=== PATIENT | male | born 1930 | race Caucasian/White ===

== ENCOUNTER 2017-02-06 19:25 | Emergency (ER) | payer MEDICARE, BC ==
[2017-02-06] MEDS ORDERED: Ondansetron 4 MG/2 ML SDV IVPUSH ONE (19:41)
[2017-02-06] MEDS ORDERED: HYDROmorphone 1 MG/ML Syringe IVPUSH ONE (19:41)
--- NOTE | 2017-02-06 19:51 | EDM.PDOC ---
ED HPI GENERAL MEDICAL PROBLEM - General Time Seen by Provider: 02/06/17 19:34 Source of Information: Reports: Patient History Limitations: Reports: No Limitations - History of Present Illness INITIAL COMMENTS - FREE TEXT/NARRATIVE: Patient presents with intense, crampy mid-abdominal pain that started about 5 hours ago and has steadily worsened. This morning he felt completely fine. He says he had a very "greasy" dinner at noon. At 1300 he felt gas/bloating so took some Gas-X and then three teaspoons of Milk of Mag. It just worsened. He denies any gallbladder problems. Last BM was this morning, no diarrhea or constipation. Has a BM usually daily. - Related Data Allergies Allergy/AdvReac Type Severity Reaction Status Date / Time Penicillins Allergy Rash Verified 02/06/17 20:08 Home Meds: Home Meds Non-Formulary Medication [NF Drug] 02/06/17 [History] carBAMazepine [Carbamazepine] 200 mg PO BID 02/06/17 [History] Social & Family History - Tobacco Use Years of Tobacco use: 20 Month Tobacco Last Used: 1969 - Alcohol Use Days Per Week of Alcohol Use: 7 (usually one drink daily) - Living Situation & Occupation Living situation: Reports: Occupation: Retired ED ROS GENERAL - Review of Systems Review Of Systems: See Below Constitutional: Reports: Chills (feels cold right now and felt hot earlier). Denies: Fever, Diaphoresis HEENT: Reports: No Symptoms Respiratory: Denies: Shortness of Breath, Cough Cardiovascular: Denies: Chest Pain, Edema, Lightheadedness, Syncope GI/Abdominal: Reports: Abdominal Pain, Nausea. 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 Today the fingers seem a little blue but may be due to feeling cold.) Neurological: Denies: Confusion, Dizziness, Headache, Seizure, Syncope, Trouble Speaking Psychiatric: Reports: Anxiety. Denies: Agitation, Confusion ED EXAM, GI/ABD - Physical Exam Exam: See Below Exam Limited By: No Limitations General Appearance: Alert, WD/WN, Moderate Distress Eyes: Bilateral: Normal Appearance, EOMI Ears: Normal External Exam, Hearing Loss (chronic) Nose: Normal Inspection, No Blood Throat/Mouth: Normal Inspection, Normal Lips, Normal Voice, No Airway Compromise Head: Atraumatic, Normocephalic Neck: Normal Inspection, Full Range of Motion Respiratory/Chest: No Respiratory Distress, Lungs Clear, Normal Breath Sounds, No Accessory Muscle Use Cardiovascular: Normal Peripheral Pulses, Regular Rate, Rhythm, No Edema, No Gallop, No Murmur GI/Abdominal Exam: Normal Bowel Sounds, No Organomegaly, No Distention, Guarding , Tender (generalized but more in periumbilical region. The outer quadrants less tender) Rectal (Males) Exam: Normal Exam, Normal Rectal Tone, Prostate Normal, Heme - Stool. No: Black Stool, Bloody Stool, Fecal Impaction, Hemorrhoids, Tenderness Back Exam: No: CVA Tenderness (L), CVA Tenderness (R) Extremities: Normal Inspection, Normal Range of Motion, Non-Tender Neurological: Alert, Oriented, Normal Cognition, No Motor/Sensory Deficits Psychiatric: Normal Affect, Normal Mood Skin Exam: Warm, Dry, Intact, Normal Color (except fingers as above), No Rash Course - Orders/Labs/Meds Orders: Active Orders 24 hr Category Date Time Status CBC WITH AUTO DIFF [HEME] Stat Lab 02/06/17 19:42 Ordered COMPREHENSIVE METABOLIC PN,CMP [CHEM] Stat Lab 02/06/17 19:42 Ordered CRP [C-REACTIVE PROTEIN] [CHEM] Stat Lab 02/06/17 19:42 Ordered Meds: Medications Discontinued Medications Generic Name Dose Route Start Last Admin Trade Name Freq PRN Reason Stop Dose Admin Hydromorphone HCl 1 mg 02/06/17 19:41 Dilaudid IVPUSH 02/06/17 19:42 ONETIME ONE Ondansetron HCl 4 mg 02/06/17 19:41 Zofran IVPUSH 02/06/17 19:42 ONETIME ONE - Re-Assessments/Exams Free Text/Narrative Re-Assessment/Exam: 02/06/17 21:48 Dilaudid is controlling the pain nicely. WBC is 11.9 with 90% neutrophils. Liver enzymes are elevated; lipase is normal. 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 Discussed case with Dr. Dietrich (hospitalist) at [facility] who accepted for transfer and surgical consult. We placed an NG tube and this released a large amount of air/gas. Pt's blood pressure has dropped and temp has increased so will give fluids and draw blood cultures and lactic acid. Pt has otherwise been stable and will be transferring to [place] shortly via ambulance. 02/06/17 22:20 Discussed change in status with Dr. Dietrich who advised no antibiotic en route but likes the fluid boluses. She wants patient to go to ER with the hypotension. Departure - Departure Time of Disposition: 21:45 Disposition: DC/Tfer to Acute Hospital 02 Condition: Good Clinical Impression: Small bowel obstruction, Elevated liver enzymes, Cholelithiasis, Neutrophilic leukocytosis, Organoaxial gastric volvulus - Discharge Information - My Orders Last 24 Hours: My Active Orders 02/06/17 19:42 CBC WITH AUTO DIFF [HEME] Stat COMPREHENSIVE METABOLIC PN,CMP [CHEM] Stat CRP [C-REACTIVE PROTEIN] [CHEM] Stat - Assessment/Plan Last 24 Hours: My Active Orders 02/06/17 19:42 CBC WITH AUTO DIFF [HEME] Stat COMPREHENSIVE METABOLIC PN,CMP [CHEM] Stat CRP [C-REACTIVE PROTEIN] [CHEM] Stat
[2017-02-06 20:17] LABS: CHLORIDE,CL 98 mmol/L (98-115); SODIUM,NA 137 mmol/L (136-145)
[2017-02-06] MEDS ORDERED: Iopamidol 612 MG/ML 75 ML Bottle IV ONE (20:50)
[2017-02-06] MEDS ORDERED: Sodium Chloride 0.9% 50 ML SDV FLUSH SCH (21:00)
[2017-02-06] MEDS ORDERED: Sodium Chloride 0.9% 1,000 ML IV ONE (21:49)
[2017-02-06] MEDS ORDERED: Sodium Chloride 0.9% 1,000 ML ONE (21:50)
[2017-02-07 01:01] VITALS: BP 83/41
== END 2017-02-06 22:30 ==
LOC: KA.ED 19:25
DX: K56.60 Unspecified intestinal obstruction (principal); K80.20 Calculus of gallbladder without cholecystitis without obstruction; R74.8 Abnormal levels of other serum enzymes; D72.828 Other elevated white blood cell count; K31.89 Other diseases of stomach and duodenum; Z88.0 Allergy status to penicillin
CPT/HCPCS: 36415; 74177; 80053; 83605; 83690; 85025; 86140; 87040; 96361; 96374; 96375; 99285; J1170; J2405; J7030; Q9967; 87077; 87186

== ENCOUNTER 2017-03-08 11:45 | Inpatient (IN) | payer MEDICARE, BC ==
[2017-03-08] MEDS ORDERED: Acetaminophen 325 MG Tab PO PRN ×2 (13:34→13:52)
[2017-03-08] MEDS ORDERED: traZODone 50 MG Tab PO PRN (13:52)
[2017-03-08] MEDS ORDERED: Aluminum Hydroxide/Magnesium Hydroxide/Simethicone Susp 30 ML Cup PO PRN (13:52)
--- NOTE | 2017-03-08 16:17 | PCM.HP ---
H&P History of Present Illness - General Date of Service: 03/08/17 Admit Problem/Dx: Admission Diagnosis/Problem Admission Diagnosis/Problem Weakness Source of Information: Patient, Other (information provided per [facility]) History Limitations: Reports: Other (weakness) - History of Present Illness Initial Comments - Free Text/Narative: Patient admitted to swing bed from [facility] for rehabilitation. Initial hospitalization date 02-06-17. History of hospitalization is severe sepsis secondary to cholangitis from underlying cholecystitis resulting in e. coli beteremia. Complications included acute hypoxic respiratory failure due to the sepsis. Patient underwent an ERCP on 02-08-17 with removal of CBD stone, sphincterotomy and biliary stent placement. Repeat ERCP on 02-12-17 without obstruction. Hospital coarse complications included Acute kidney injury with a creatinine peak of 1.68. Kidney function gradually improving. He developed transient atrial fibrillation due to the sepsis. This was treated with amiodarone infusion. On hospital discharge patient was in sinus rhythm. He also developed [id number] diastolic CHF which was treated by diuretics. Pulmonary issues resolved. Today patient states he feels good other then noting weakness, decreased strength and endurance. Onset of Symptoms: Reports: Other (due to illness) Symptom Onset Date: 02/06/18 - Related Data Allergies/Adverse Reactions: Allergies Allergy/AdvReac Type Severity Reaction Status Date / Time doxycycline Allergy Cannot Verified 03/08/17 12:16 Remember erythromycin base Allergy Cannot Verified 03/08/17 12:16 Remember Penicillins Allergy Rash Verified 03/08/17 12:16 sulfamethoxazole Allergy Cannot Verified 03/08/17 12:16 [From Bactrim] Remember trimethoprim [From Bactrim] Allergy Cannot Verified 03/08/17 12:16 Remember Home Medications: Home Meds Non-Formulary Medication [NF Drug] 02/06/17 [History] carBAMazepine [Carbamazepine] 200 mg PO BID 02/06/17 [History] Acetaminophen [Pain Reliever] 650 mg PO Q4HR PRN 03/08/17 [History] Alum Hydrox/Mag Hydrox/Simeth [Mag-Al Plus] 30 ml PO QID PRN 03/08/17 [History] Aspirin 81 mg PO DAILY 03/08/17 [History] Bumetanide 1 mg PO DAILY 03/08/17 [History] Cholecalciferol (Vitamin D3) [Vitamin D3] 1,000 units PO DAILY 03/08/17 [History ] Colchicine 0.6 mg PO WEEKLY 03/08/17 [History] Docusate Sodium 100 mg PO BID 03/08/17 [History] Ipratropium/Albuterol Sulfate [Iprat-Albut 0.5-3(2.5) MG/3 ML] 0.5 - 2 mg INH QID 03/08/17 [History] Melatonin 6 mg PO DAILY 03/08/17 [History] Metoprolol Tartrate 25 mg PO BID 03/08/17 [History] Multivit-Min/Iron Fum/Folic AC [Vwyia-Ahyvorh-Wutaskhe Tablet] 1 each PO DAILY 03/08/17 [History] Potassium Chloride 20 meq PO DAILY 03/08/17 [History] traZODone HCl [Trazodone HCl] 50 mg PO BEDTIME PRN 03/08/17 [History] Past Medical History HEENT History: Reports: Hard of Hearing, Impaired Vision Cardiovascular History: Reports: Afib, High Cholesterol, Hypertension Respiratory History: Reports: None, Other (See Below) Other Respiratory History: Resp failure r/t sepsis 02/07. 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 Neurological History: Reports: Other (See Below) Other Neuro History: trigeminal neuralgia Psychiatric History: Reports: None Endocrine/Metabolic History: Reports: None Hematologic History: Reports: B12 Deficiency Oncologic (Cancer) History: Reports: Basal Cell Carcinoma Other Oncologic History: face, chest, ear skin ca removed Dermatologic History: Reports: None - Infectious Disease History Infectious Disease History: Reports: None - Past Surgical History GI Surgical History: Reports: Hernia, Abdominal Social & Family History - Tobacco Use Smoking Status *Q: Former Smoker Years of Tobacco use: 20 Used Tobacco, but Quit: No Month Tobacco Last Used: 1969 - Caffeine Use Caffeine Use: Reports: Coffee - Alcohol Use Days Per Week of Alcohol Use: 7 (usually one drink daily) Number of Drinks Per Day: 2 Total Drinks Per Week: 14 - Recreational Drug Use Recreational Drug Use: No - Living Situation & Occupation Living situation: Reports: Occupation: Retired H&P Review of Systems - Review of Systems: Review Of Systems: See Below General: Reports: Weakness, Fatigue, Decreased Appetite (states appetite improving as he progressively becomes stronger) HEENT: Reports: Hearing Changes (has hearing aids). Denies: Ear Pain, Headaches , Rhinitis, Sinus Congestion, Sore Throat, Vertigo, Visual Changes Pulmonary: Denies: Shortness of Breath, Wheezing, Cough Cardiovascular: Denies: Chest Pain, Palpitations, Orthopnea, PND, Edema, Lightheadedness Gastrointestinal: Denies: Abdominal Pain, Constipation, Diarrhea, Distension Genitourinary: Denies: Dysuria, Frequency, Urgency Musculoskeletal: Reports: Other (weakness) Skin: Denies: Cyanosis, Pallor Neurological: Denies: Confusion, Dizziness, Headache Exam - Exam Exam: See Below - Vital Signs Vital Signs: Last Vital Signs Temp 97.4 F 03/08/17 15:00 Pulse 76 03/08/17 15:00 Resp 20 03/08/17 15:00 BP 130/77 03/08/17 15:00 Pulse Ox 95 03/08/17 15:00 Weight: 165 lb 1.6 oz - Exam General: Alert, Oriented, Cooperative HEENT: Conjunctiva Clear, EOMI, Mucosa Moist & [place], Posterior Pharynx Clear, Pupils Equal, Pupils Reactive Neck: Supple, Trachea Midline, +2 Carotid Pulse wo Bruit Lungs: Normal Respiratory Effort. No: Crackles, Rales, Rhonchi, Wheezing Cardiovascular: Regular Rate, Regular Rhythm, Normal S1, Normal S2 GI/Abdominal Exam: Normal Bowel Sounds, Soft, Non-Tender, No Organomegaly Extremities: Normal Inspection, Non-Tender, No Pedal Edema, Normal Capillary Refill. No: Pedal Edema *Q Meaningful Use (ADM) - VTE *Q VTE Criteria *Q: - Stroke *Q Stroke Criteria *Q: - AMI *Q AMI Criteria *Q: Problem List Initiated/Reviewed/Updated: Yes Orders Last 24hrs: Active Orders 24 hr Category Date Time Status Patient Status [ADT] Routine ADT 03/08/17 11:30 Ordered Ambulate [RC] ASDIRECTED Care 03/08/17 13:16 Active Height and Weight [RC] PER UNIT ROUTINE Care 03/08/17 13:29 Active May Shower [RC] ASDIRECTED Care 03/08/17 13:16 Active Oxygen Therapy [RC] PRN Care 03/08/17 13:11 Active Up ad Lorri [RC] ASDIRECTED Care 03/08/17 13:16 Active Up to Chair [RC] ASDIRECTED Care 03/08/17 13:16 Active VTE/DVT Education [RC] PER UNIT ROUTINE Care 03/08/17 13:11 Active Vital Signs [RC] 0700,1500 Care 03/08/17 13:11 Active Consult to [place] [CONS] Routine Cons 03/08/17 13:34 Active PT Evaluation and Treatment [CONS] Routine Cons 03/08/17 13:34 Active Regular Diet [DIET] Diet 03/08/17 Dinner Active Acetaminophen [Tylenol] Med 03/08/17 13:34 Active 650 mg PO Q4H PRN Albuterol/Ipratropium [DuoNeb 3.0-0.5 MG/3 ML] Med 03/08/17 16:00 Active 3 ml INH QIDRT Alum Hydrox/Mag Hydrox/Simeth [Mag-Al Plus] Med 03/08/17 13:52 Active 30 ml PO QID PRN Aspirin Med 03/09/17 09:00 Active 81 mg PO DAILY Bumetanide [Bumex] Med 03/09/17 09:00 Active 1 mg PO DAILY Cholecalciferol (Vitamin D3) [Vitamin D3] Med 03/09/17 09:00 Active 2,000 units PO DAILY Docusate Sodium [Colace] Med 03/08/17 21:00 Active 100 mg PO BID FA/Lycopene/Lut/MV,Ca,Iron,Min [Centrum] Med 03/09/17 09:00 Active 1 tab PO DAILY Melatonin Med 03/08/17 21:00 Active 6 mg PO BEDTIME Metoprolol Tartrate [Lopressor] Med 03/08/17 21:00 Active 25 mg PO BID Potassium Chloride [Klor-Con M20] Med 03/09/17 09:00 Active 20 meq PO DAILY carBAMazepine [TEGretol Tab] Med 03/08/17 21:00 Active 200 mg PO BID traZODone Med 03/08/17 13:52 Active 50 mg PO BEDTIME PRN Resuscitation Status Routine Resus Stat 03/08/17 13:10 Ordered Medication Orders Acetaminophen (Tylenol) 650 mg PO Q4H PRN PRN Reason: Pain (Mild 1-3)/fever Al Hydroxide/Mg Hydroxide (Mag-Al Plus) 30 ml PO QID PRN PRN Reason: Indigestion Albuterol/Ipratropium (Duoneb 3.0-0.5 Mg/3 Ml) 3 ml INH QIDRT HALLIE Aspirin (Aspirin) 81 mg PO DAILY HALLIE Bumetanide (Bumex) 1 mg PO DAILY HALLIE Carbamazepine (Tegretol Tab) 200 mg PO BID HALLIE Cholecalciferol (Vitamin D3) 2,000 units PO DAILY HALLIE Docusate Sodium (Colace) 100 mg PO BID HALLIE Melatonin (Melatonin) 6 mg PO BEDTIME HALLIE Metoprolol Tartrate (Lopressor) 25 mg PO BID HALLIE Multivitamins/Minerals (Centrum) 1 tab PO DAILY COUNT INCLUDES THE [facility] Potassium Chloride (Klor-Con M20) 20 meq PO DAILY HALLIE Trazodone HCl (Trazodone) 50 mg PO BEDTIME PRN PRN Reason: Insomnia Assessment/Plan Comment:: Impression and plan Deconditioning / weakness Admitted for PT ,strenthening and endurance. History of other medical conditions. 1.ISevere sepsis secondary to cholecystitis and cholangitis resulting in Escherichia coli bacteremia. S/P. 2. Acute hypoxic respiratory failure due to sepsis. 3. Acute kidney injury/acute renal failure due to ATN from sepsis. 4. NSTEMI type II. 5. Transient atrial fibrillation due to the stress of the illness. 6. Acute hypernatremia secondary to water deficit. Sodium is 153. 7. Acute hyperkalemia. 8. Acute thrombocytopenia secondary to sepsis related bone marrow depression, resolved. 9. Anemia of critical disease. Hemoglobin stable between 10 and 11. 10 massive hiatal hernia with nearly entire stomach in thorax 11. 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
[2017-03-08] MEDS: Albuterol/Ipratropium 3.0-0.5 MG/3 ML Neb Soln INH SCH ×2 (17:02→21:20)
[2017-03-08] MEDS: Melatonin 3 MG Tab PO SCH (21:17)
[2017-03-08] MEDS: Metoprolol Tartrate 25 MG Tab PO SCH (21:17)
[2017-03-08] MEDS: carBAMazepine 200 MG Tab PO SCH (21:17)
[2017-03-08] MEDS: Docusate Sodium 100 MG Cap PO SCH (21:17)
[2017-03-09] MEDS: Albuterol/Ipratropium 3.0-0.5 MG/3 ML Neb Soln INH SCH ×4 (06:20→21:28)
[2017-03-09] MEDS: Aspirin 81 MG Tab.Chew PO SCH (08:20)
[2017-03-09] MEDS: Multivitamins with Minerals/Iron/Folic Acid/Lycopene Tab PO SCH (08:20)
[2017-03-09] MEDS: Docusate Sodium 100 MG Cap PO SCH ×2 (08:21→21:24)
[2017-03-09] MEDS: Cholecalciferol (Vitamin D3) 1,000 Unit Tab PO SCH (08:21)
[2017-03-09] MEDS: Bumetanide 1 MG Tab PO SCH (08:21)
[2017-03-09] MEDS: Potassium Chloride 20 MEQ Tab.ER PO SCH (08:22)
[2017-03-09] MEDS: carBAMazepine 200 MG Tab PO SCH ×2 (08:22→21:24)
[2017-03-09] MEDS: Metoprolol Tartrate 25 MG Tab PO SCH ×2 (08:31→21:24)
[2017-03-09] MEDS: ANTIFUNGAL TOP SCH ×2 (11:19→21:28)
[2017-03-09] MEDS: Melatonin 3 MG Tab PO SCH (21:27)
[2017-03-10] MEDS: Albuterol/Ipratropium 3.0-0.5 MG/3 ML Neb Soln INH SCH ×4 (05:40→22:17)
[2017-03-10] MEDS: ANTIFUNGAL TOP SCH ×2 (08:10→20:32)
[2017-03-10] MEDS: Bumetanide 1 MG Tab PO SCH (08:10)
[2017-03-10] MEDS: carBAMazepine 200 MG Tab PO SCH ×2 (08:11→20:31)
[2017-03-10] MEDS: Aspirin 81 MG Tab.Chew PO SCH (08:11)
[2017-03-10] MEDS: Cholecalciferol (Vitamin D3) 1,000 Unit Tab PO SCH (08:11)
[2017-03-10] MEDS: Docusate Sodium 100 MG Cap PO SCH ×2 (08:11→20:31)
[2017-03-10] MEDS: Multivitamins with Minerals/Iron/Folic Acid/Lycopene Tab PO SCH (08:11)
[2017-03-10] MEDS: Potassium Chloride 20 MEQ Tab.ER PO SCH (08:12)
[2017-03-10] MEDS: Metoprolol Tartrate 25 MG Tab PO SCH ×2 (08:14→20:32)
[2017-03-10] MEDS: Melatonin 3 MG Tab PO SCH (20:31)
[2017-03-11] MEDS: Albuterol/Ipratropium 3.0-0.5 MG/3 ML Neb Soln INH SCH ×4 (06:16→21:49)
[2017-03-11] MEDS: Aspirin 81 MG Tab.Chew PO SCH (08:59)
[2017-03-11] MEDS: Cholecalciferol (Vitamin D3) 1,000 Unit Tab PO SCH (09:00)
[2017-03-11] MEDS: Bumetanide 1 MG Tab PO SCH (09:00)
[2017-03-11] MEDS: ANTIFUNGAL TOP SCH ×2 (09:00→20:35)
[2017-03-11] MEDS: Metoprolol Tartrate 25 MG Tab PO SCH ×2 (09:00→20:32)
[2017-03-11] MEDS: Multivitamins with Minerals/Iron/Folic Acid/Lycopene Tab PO SCH (09:00)
[2017-03-11] MEDS: Docusate Sodium 100 MG Cap PO SCH ×2 (09:00→20:32)
[2017-03-11] MEDS: carBAMazepine 200 MG Tab PO SCH ×2 (09:00→20:33)
[2017-03-11] MEDS: Potassium Chloride 20 MEQ Tab.ER PO SCH (09:00)
--- NOTE | 2017-03-11 16:36 | PN ---
03/10/2017PATIENT NAME: CYNTHIA OTT HISTORY OF PRESENT ILLNESS: Concerns of yeast-like rash in his chrissy area. REVIEW OF SYSTEMS: RESPIRATORY: No complains of coughing or congestion. CARDIOVASCULAR: No chest pain or palpitations. SKIN: Yeast-like rash area in his chrissy area. PHYSICAL EXAMINATION: RESPIRATORY: Lungs are clear. CARDIOVASCULAR: Heart rate and rhythm are regular. S1, S2. SKIN: Redness improving in the chrissy area with antifungal cream. ASSESSMENT: Yeast-like rash of the chrissy area. His plan is to continue using his antifungal cream which was initiated yesterday. At that time, his rash site was very deep red and excoriated. Noted significant improvement today. The patient feels that his symptoms are improving. He will be followed up routinely at the [facility]. /[id number]/MODL
[2017-03-11] MEDS: Melatonin 3 MG Tab PO SCH (20:32)
[2017-03-12] MEDS: Albuterol/Ipratropium 3.0-0.5 MG/3 ML Neb Soln INH SCH ×4 (05:46→21:19)
[2017-03-12] MEDS: Bumetanide 1 MG Tab PO SCH (08:53)
[2017-03-12] MEDS: Multivitamins with Minerals/Iron/Folic Acid/Lycopene Tab PO SCH (08:53)
[2017-03-12] MEDS: Docusate Sodium 100 MG Cap PO SCH ×2 (08:53→21:16)
[2017-03-12] MEDS: Aspirin 81 MG Tab.Chew PO SCH (08:53)
[2017-03-12] MEDS: Potassium Chloride 20 MEQ Tab.ER PO SCH (08:53)
[2017-03-12] MEDS: Metoprolol Tartrate 25 MG Tab PO SCH ×2 (08:53→21:16)
[2017-03-12] MEDS: carBAMazepine 200 MG Tab PO SCH ×2 (08:54→21:17)
[2017-03-12] MEDS: Cholecalciferol (Vitamin D3) 1,000 Unit Tab PO SCH (08:54)
[2017-03-12] MEDS: ANTIFUNGAL TOP SCH ×2 (09:35→21:18)
[2017-03-12] MEDS: Melatonin 3 MG Tab PO SCH (21:17)
[2017-03-13] MEDS: Albuterol/Ipratropium 3.0-0.5 MG/3 ML Neb Soln INH SCH ×3 (05:59→15:34)
[2017-03-13] MEDS: Aspirin 81 MG Tab.Chew PO SCH (08:24)
[2017-03-13] MEDS: carBAMazepine 200 MG Tab PO SCH ×2 (08:24→21:01)
[2017-03-13] MEDS: Multivitamins with Minerals/Iron/Folic Acid/Lycopene Tab PO SCH (08:24)
[2017-03-13] MEDS: Bumetanide 1 MG Tab PO SCH (08:24)
[2017-03-13] MEDS: Docusate Sodium 100 MG Cap PO SCH ×2 (08:24→21:01)
[2017-03-13] MEDS: ANTIFUNGAL TOP SCH ×2 (08:24→21:01)
[2017-03-13] MEDS: Cholecalciferol (Vitamin D3) 1,000 Unit Tab PO SCH (08:24)
[2017-03-13] MEDS: Metoprolol Tartrate 25 MG Tab PO SCH ×2 (08:24→21:01)
[2017-03-13] MEDS: Potassium Chloride 20 MEQ Tab.ER PO SCH (08:24)
[2017-03-13] MEDS ORDERED: Albuterol/Ipratropium 3.0-0.5 MG/3 ML Neb Soln NEB PRN (17:06)
[2017-03-13] MEDS: Melatonin 3 MG Tab PO SCH (21:01)
[2017-03-14] MEDS: ANTIFUNGAL TOP SCH ×2 (08:18→20:37)
[2017-03-14] MEDS: Cholecalciferol (Vitamin D3) 1,000 Unit Tab PO SCH (08:18)
[2017-03-14] MEDS: Docusate Sodium 100 MG Cap PO SCH ×2 (08:19→20:34)
[2017-03-14] MEDS: Metoprolol Tartrate 25 MG Tab PO SCH ×2 (08:19→20:41)
[2017-03-14] MEDS: Multivitamins with Minerals/Iron/Folic Acid/Lycopene Tab PO SCH (08:19)
[2017-03-14] MEDS: carBAMazepine 200 MG Tab PO SCH ×2 (08:19→20:35)
[2017-03-14] MEDS: Potassium Chloride 20 MEQ Tab.ER PO SCH (08:19)
[2017-03-14] MEDS: Aspirin 81 MG Tab.Chew PO SCH (08:19)
[2017-03-14] MEDS: Bumetanide 1 MG Tab PO SCH (08:19)
[2017-03-14] MEDS: Melatonin 3 MG Tab PO SCH (20:34)
[2017-03-15] MEDS: Aspirin 81 MG Tab.Chew PO SCH (08:51)
[2017-03-15] MEDS: Potassium Chloride 20 MEQ Tab.ER PO SCH (08:51)
[2017-03-15] MEDS: Bumetanide 1 MG Tab PO SCH (08:51)
[2017-03-15] MEDS: Docusate Sodium 100 MG Cap PO SCH ×2 (08:51→20:37)
[2017-03-15] MEDS: Multivitamins with Minerals/Iron/Folic Acid/Lycopene Tab PO SCH (08:51)
[2017-03-15] MEDS: Cholecalciferol (Vitamin D3) 1,000 Unit Tab PO SCH (08:52)
[2017-03-15] MEDS: carBAMazepine 200 MG Tab PO SCH ×2 (08:52→20:37)
[2017-03-15] MEDS: Metoprolol Tartrate 25 MG Tab PO SCH ×2 (08:52→20:38)
[2017-03-15] MEDS: ANTIFUNGAL TOP SCH ×2 (08:57→20:38)
[2017-03-15] MEDS: Melatonin 3 MG Tab PO SCH (20:38)
[2017-03-16] MEDS: Cholecalciferol (Vitamin D3) 1,000 Unit Tab PO SCH (11:25)
[2017-03-16] MEDS: Docusate Sodium 100 MG Cap PO SCH ×2 (11:25→21:00)
[2017-03-16] MEDS: Multivitamins with Minerals/Iron/Folic Acid/Lycopene Tab PO SCH (11:26)
[2017-03-16] MEDS: Potassium Chloride 20 MEQ Tab.ER PO SCH (11:26)
[2017-03-16] MEDS: Bumetanide 1 MG Tab PO SCH (11:26)
[2017-03-16] MEDS: Aspirin 81 MG Tab.Chew PO SCH (11:26)
[2017-03-16] MEDS: ANTIFUNGAL TOP SCH ×2 (11:27→21:07)
[2017-03-16] MEDS: carBAMazepine 200 MG Tab PO SCH ×2 (11:28→20:59)
[2017-03-16] MEDS: Metoprolol Tartrate 25 MG Tab PO SCH ×2 (11:29→21:00)
[2017-03-16] MEDS: Melatonin 3 MG Tab PO SCH (21:00)
[2017-03-17] MEDS: Potassium Chloride 20 MEQ Tab.ER PO SCH (09:50)
[2017-03-17] MEDS: Docusate Sodium 100 MG Cap PO SCH ×2 (09:50→20:27)
[2017-03-17] MEDS: Cholecalciferol (Vitamin D3) 1,000 Unit Tab PO SCH (09:50)
[2017-03-17] MEDS: Bumetanide 1 MG Tab PO SCH (09:50)
[2017-03-17] MEDS: Aspirin 81 MG Tab.Chew PO SCH (09:50)
[2017-03-17] MEDS: carBAMazepine 200 MG Tab PO SCH ×2 (09:50→20:27)
[2017-03-17] MEDS: Multivitamins with Minerals/Iron/Folic Acid/Lycopene Tab PO SCH (09:52)
[2017-03-17] MEDS: ANTIFUNGAL TOP SCH ×2 (09:55→20:27)
[2017-03-17] MEDS: Metoprolol Tartrate 25 MG Tab PO SCH ×2 (10:02→20:27)
[2017-03-17] MEDS: Melatonin 3 MG Tab PO SCH (20:27)
[2017-03-18] MEDS: Aspirin 81 MG Tab.Chew PO SCH (08:49)
[2017-03-18] MEDS: Bumetanide 1 MG Tab PO SCH (08:49)
[2017-03-18] MEDS: Multivitamins with Minerals/Iron/Folic Acid/Lycopene Tab PO SCH (08:49)
[2017-03-18] MEDS: Cholecalciferol (Vitamin D3) 1,000 Unit Tab PO SCH (08:49)
[2017-03-18] MEDS: Docusate Sodium 100 MG Cap PO SCH (08:49)
[2017-03-18] MEDS: carBAMazepine 200 MG Tab PO SCH (08:50)
[2017-03-18] MEDS: Potassium Chloride 20 MEQ Tab.ER PO SCH (08:50)
[2017-03-18] MEDS: Metoprolol Tartrate 25 MG Tab PO SCH (08:50)
[2017-03-18] MEDS: ANTIFUNGAL TOP SCH (08:51)
[2017-03-18 08:53] VITALS: BP 106/66
--- NOTE | 2017-03-19 08:11 | DISCH ---
ADMITTING DIAGNOSIS: Swing bed, status post endoscopic retrograde cholangiopancreatography with Escherichia coli bacteremia. FINAL DIAGNOSIS: Generalized deconditioning secondary to extended hospital stay after Escherichia coli bacteremia. BRIEF HISTORY AND ESSENTIAL PHYSICAL FINDINGS: This is an 87-year-old male patient who was admitted from [facility] in [place]. He was admitted here back on 03/08/2017. His initial hospitalization date was 02/06/2017. The patient was hospitalized with severe sepsis secondary to cholangitis from underlying cholecystitis resulted in E coli bacteremia. The patient had multiple complications secondary to bacteremia. He had respiratory failure with acute hypoxic episode. The patient underwent ERCP back on 02/08/2017 with removal of common bile duct stone, sphincterotomy, and biliary stent placement. He underwent a repeat ERCP back on 02/12/2017. Due to bacteremia and sepsis, the patient had acute kidney injury resulting in a peak creatinine level of 1.68. He also had transient atrial fibrillation. He had to be on amiodarone infusion. The patient was in sinus rhythm at the time of discharge from [facility]. The patient also did have exacerbation of his CHF. At the time of discharge, the patient's respiratory status was much improved. His pulmonary issues had resolved. SIGNIFICANT LABS XRAYS AND CONSULTATION FINDINGS: The patient had no lab work obtained while he was here for swing bed status. No scans or x-rays were obtained. COURSE IN HOSPITAL WITH COMPLICATIONS IF ANY: The patient was seen by Physical Therapy and Occupational Therapy. His strength did improve. He walks by himself with a walker. He did have one fall during the hospitalization. The patient states that his legs were like Jell-O when he first started to walk around the home and now he feels improved. CONDITION TREATMENT AND FINAL DISPOSITION ON DISCHARGE AND PROGNOSIS: Condition is stable. Final disposition will be home. IMPRESSION AND PLAN: 1. Status post two endoscopic retrograde cholangiopancreatographies with Escherichia coli bacteremia and biliary stent placement. The patient has been doing well, afebrile, eating and drinking well. 2. History of hypertension along with congestive heart failure. Plan: Continue the patient on aspirin 81 mg daily along with diuretics of Bumex 1 mg daily, also beta-bandar of Lopressor 25 mg twice a day. 3. History of hypokalemia. Plan: Continue with potassium chloride 20 mEq daily. 4. History of insomnia. Plan: Continue with melatonin and trazodone at bedtime as needed for sleep. 5. History of trigeminal neuralgia. Plan: Continue with Tegretol as ordered. 6. Deconditioning due to extended hospitalization. Plan: Send the patient home with Home Health and Physical Therapy and Occupational Therapy. OVERALL PLAN: The patient will be discharged home today with his . He is going to be sent home with Home Health of Nursing, Physical Therapy, and Occupational Therapy. The patient will need nursing for medication management. Physical therapy and occupational therapy will be needed. The patient is still quite weak with his gait. He has been walking with a walker. He will need physical therapy for strengthening of his lower extremities. He does complain of some left calf muscle weakness. His endurance is much less than previously. He says he is not going back to where he was. Also, occupational therapy for home safety assessment and instructions. The patient will also need to develop a home therapy program with Physical Therapy. Physical Therapy and Occupational will work with the patient's gait to make sure his gait is steady and he is safe in his own home. /[id number]/MODL
== END 2017-03-18 14:40 | disposition home or self-care (01) | DRG 948 ==
LOC: KA.MS 11:45
PROVIDERS: ADMIT Family Medicine; ATTEND Family Medicine
DX: R53.1 Weakness (principal); R78.81 Bacteremia; B96.20 Unspecified Escherichia coli [E. coli] as the cause of diseases classified elsewhere; R21 Rash and other nonspecific skin eruption; I10 Essential (primary) hypertension; E87.6 Hypokalemia; G50.0 Trigeminal neuralgia; G47.00 Insomnia, unspecified; I48.91 Unspecified atrial fibrillation; E78.00 Pure hypercholesterolemia, unspecified; Z85.828 Personal history of other malignant neoplasm of skin; Z98.890 Other specified postprocedural states; Z87.891 Personal history of nicotine dependence
CPT/HCPCS: 94640; 94640-76; 97110-GP; 97116-GP; 97162-GP; A9270-GY

== ENCOUNTER 2017-12-03 19:07 | Emergency (ER) | payer MEDICARE, BC ==
[2017-12-03 19:20] VITALS: BP 151/75
[2017-12-03] MEDS ORDERED: Sodium Chloride 0.9% 5 ML Syringe FLUSH PRN (19:21)
--- NOTE | 2017-12-03 19:31 | EDM.PDOC ---
ED HPI GENERAL MEDICAL PROBLEM - General Chief Complaint: Gastrointestinal Problem Stated Complaint: RIGHT LOWER ABD PAIN Time Seen by Provider: 12/03/17 19:22 Source of Information: Reports: Patient History Limitations: Reports: No Limitations - History of Present Illness INITIAL COMMENTS - FREE TEXT/NARRATIVE: 87 YO WM presents to ER with complaints of RUQ abdominal pain x 2 days. Pr with significant PMH for cholecystitis/choleducholithiasis and sepsis from infected gallbladder 1 year ago. Pt reports he had an ERCP and cholecystectomy followed by a 40 day hospitalization. Pt reports pain began 2 days ago as mild discomfort and has been intermittent and persistent. Due to his past medical history he felt he should be evaluated for symptoms. Pt denies any fever/chills , no nausea/vomiting. Pt reports normal bowel movement yesterday without hematchezia. Pt rates his pain as 4/10 and is refusing pain medication at this time. Onset Date: 12/01/17 Duration: Day(s): (2) Location: Reports: Abdomen. Denies: Back Quality: Reports: Ache Severity: Mild Improves with: Reports: None Worsens with: Reports: None Treatments HOSPICE SUPERINTENDENT: Reports: NSAIDS Right Lower Abdomen Pain Score (Numeric/FACES): 4 - Related Data Allergies Allergy/AdvReac Type Severity Reaction Status Date / Time doxycycline Allergy Cannot Verified 12/03/17 19:18 Remember erythromycin base Allergy Cannot Verified 12/03/17 19:18 Remember Penicillins Allergy Rash Verified 12/03/17 19:18 sulfamethoxazole Allergy Cannot Verified 12/03/17 19:18 [From Bactrim] Remember trimethoprim [From Bactrim] Allergy Cannot Verified 12/03/17 19:18 Remember Home Meds: Home Meds Aspirin 81 mg PO DAILY 03/08/17 [History] Cholecalciferol (Vitamin D3) [Vitamin D3] 1,000 units PO DAILY 03/08/17 [History ] Docusate Sodium 100 mg PO BID 03/08/17 [History] Multivit-Min/Iron Fum/Folic AC [Vttdv-Dynhrhe-Bdxfhqbz Tablet] 1 each PO DAILY 03/08/17 [History] Acetaminophen [Tylenol] 650 mg PO Q4H PRN tablet 03/18/17 [Rx] Bumetanide 1 mg PO DAILY #60 tablet 03/18/17 [Rx] Metoprolol Tartrate 25 mg PO BID #120 tablet 03/18/17 [Rx] Patient's Own Medication [Ptom] 0 each TOP BID each 03/18/17 [Rx] Potassium Chloride 20 meq PO DAILY #60 tablet.er 03/18/17 [Rx] carBAMazepine [Carbamazepine] 200 mg PO BID #60 tablet 03/18/17 [Rx] traZODone HCl [Trazodone HCl] 50 mg PO BEDTIME PRN #60 tablet 03/18/17 [Rx] Past Medical History HEENT History: Reports: Hard of Hearing, Impaired Vision Cardiovascular History: Reports: Afib, High Cholesterol, Hypertension Respiratory History: Reports: None, Other (See Below) Other Respiratory History: Resp failure r/t sepsis 02/07. 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 Neurological History: Reports: Other (See Below) Other Neuro History: trigeminal neuralgia Psychiatric History: Reports: None Endocrine/Metabolic History: Reports: None Hematologic History: Reports: B12 Deficiency Oncologic (Cancer) History: Reports: Basal Cell Carcinoma Other Oncologic History: face, chest, ear skin ca removed Dermatologic History: Reports: None - Infectious Disease History Infectious Disease History: Reports: None - Past Surgical History GI Surgical History: Reports: Hernia, Abdominal Social & Family History - Caffeine Use Caffeine Use: Reports: Coffee - Living Situation & Occupation Living situation: Reports: Occupation: Retired ED ROS GENERAL - Review of Systems Review Of Systems: See Below Constitutional: Reports: No Symptoms HEENT: Reports: No Symptoms Respiratory: Reports: No Symptoms Cardiovascular: Reports: No Symptoms Endocrine: Reports: No Symptoms GI/Abdominal: Reports: Abdominal Pain, Decreased Appetite. Denies: Black Stool , Bloody Stool, Constipation, Diarrhea, Distension, Flatus, Hematemesis, Hematochezia, Nausea, Stool Incontinence, Vomiting : Reports: No Symptoms Musculoskeletal: Reports: No Symptoms Skin: Reports: No Symptoms Neurological: Reports: No Symptoms Psychiatric: Reports: No Symptoms Hematologic/Lymphatic: Reports: No Symptoms Immunologic: Reports: No Symptoms ED EXAM, GI/ABD - Physical Exam Exam: See Below Exam Limited By: No Limitations General Appearance: Alert, WD/WN, No Apparent Distress Throat/Mouth: Normal Inspection, Normal Lips, Normal Teeth, Normal Gums, Normal Oropharynx, Normal Voice, No Airway Compromise Head: Atraumatic, Normocephalic Neck: Normal Inspection, Supple, Non-Tender, Full Range of Motion Respiratory/Chest: No Respiratory Distress, Lungs Clear, Normal Breath Sounds, No Accessory Muscle Use, Chest Non-Tender Cardiovascular: Normal Peripheral Pulses, Regular Rate, Rhythm, No Edema, No Gallop, No JVD, No Murmur, No Rub GI/Abdominal Exam: Normal Bowel Sounds, Soft, No Organomegaly, No Distention, No Abnormal Bruit, No Mass, Tender (RUQ). No: Non-Tender, Guarding, Rigid, Rebound Back Exam: Normal Inspection, Full Range of Motion, NT Extremities: Normal Inspection, Normal Range of Motion, Non-Tender, Normal Capillary Refill, No Pedal Edema Neurological: Alert, Oriented, CN II-XII Intact, Normal Cognition, Normal Gait, Normal Reflexes, No Motor/Sensory Deficits Psychiatric: Normal Affect, Normal Mood Skin Exam: Warm, Dry, Intact, Normal Color, No Rash Lymphatic: No Adenopathy Course - Vital Signs Last Recorded V/S: Last Vital Signs Temp 37.4 C 12/03/17 19:12 Pulse 86 12/03/17 19:12 Resp 20 12/03/17 19:12 BP 151/75 H 12/03/17 19:12 Pulse Ox 90 L 12/03/17 19:12 - Orders/Labs/Meds Orders: Active Orders 24 hr Category Date Time Status Peripheral IV Care [RC] . DIRECTED Care 12/03/17 19:22 Active Abdomen Pelvis w Cont [CT] Stat Exams 12/03/17 19:31 Ordered UA W/MICROSCOPIC [URIN] Stat Lab 12/03/17 19:35 Ordered Iopamidol [Isovue-300 (61%)] Med 12/03/17 19:36 Active 75 ml IV . DIRECTED PRN Sodium Chloride 0.9% [Normal Saline] 50 ml Med 12/03/17 19:45 Active IV ASDIRECTED Sodium Chloride 0.9% [Syrex Flush] Med 12/03/17 19:21 Active 5 ml FLUSH Q8HR PRN Peripheral IV Insertion Adult [OM.PC] Routine Oth 12/03/17 19:21 Ordered Medication Orders Sodium Chloride (Normal Saline) 50 mls @ 3 mls/sec IV ASDIRECTED HALLIE Iopamidol (Isovue-300 (61%)) 75 ml IV . DIRECTED PRN PRN Reason: FOR RADIOLOGY EXAM Sodium Chloride (Syrex Flush) 5 ml FLUSH Q8HR PRN PRN Reason: Keep Vein Open Labs: Laboratory Tests 12/03/17 12/03/17 12/03/17 Range/Units 19:35 19:35 19:35 WBC 11.9 H (5.0-10.0) 10^3/uL RBC 4.47 L (4.50-6.00) 10^6/uL Hgb 13.4 D (13.0-17.0) g/dL Hct 40.0 (40.0-52.0) % MCV 89.5 (82.0-92.0) fL MCH 30.1 (27.0-31.0) pg MCHC 33.6 (32.0-36.0) g/dL RDW 13.2 (11.5-14.5) % Plt Count 138 L (150-300) 10^3/uL MPV 7.6 (7.4-10.4) fL Neut % (Auto) 82.8 H (50.0-70.0) % Lymph % (Auto) 7.1 L (20.0-40.0) % [place] % (Auto) 8.8 H (2.0-8.0) % Eos % (Auto) 0.7 L (1.0-3.0) % Baso % (Auto) 0.6 (0.0-1.0) % Neut # (Auto) 9.9 H (2.5-7.0) 10^3/uL Lymph # (Auto) 0.8 L (1.0-4.0) 10^3/uL [place] # (Auto) 1.0 H (0.1-0.8) 10^3/uL Eos # (Auto) 0.1 (0.1-0.3) 10^3/uL Baso # (Auto) 0.1 (0.0-0.1) 10^3/uL Sodium 142 (136-145) mmol/L Potassium 3.8 (3.3-5.3) mmol/L Chloride 106 (98-115) mmol/L Carbon Dioxide 23.6 (21.0-32.0) mmol/L BUN 27 H (6-25) mg/dL Creatinine 1.23 H (0.51-1.17) mg/dL Est Cr Clr Drug Dosing 39.56 mL/min Estimated GFR (MDRD) 56 mL/min Glucose 143 H (70-110) mg/dL Calcium 8.8 (8.7-10.3) mg/dL Total Bilirubin 0.7 (0.2-1.0) mg/dL AST 14 L (15-37) U/L ALT 19 (12-78) U/L Alkaline Phosphatase 99 (46-116) IU/L Total Protein 7.7 (6.4-8.2) g/dL Albumin 3.50 (3.00-4.80) g/dL Lipase 66 L (73-393) U/L Specimen Type Urinvoid Urine Color Yellow (YELLOW) Urine Appearance Slightly cloudy H (CLEAR) Urine pH 5.0 (5.0-9.0) Ur Specific [place] 1.025 (1.005-1.030) Urine Protein 100 H (NEGATIVE) mg/dL Urine Glucose (UA) Negative (NEGATIVE) mg/dL Urine Ketones Negative (NEGATIVE) mg/dL Urine Occult Blood Moderate H (NEGATIVE) Urine Nitrite Negative (NEGATIVE) Urine Bilirubin Small H (NEGATIVE) Urine Urobilinogen 0.2 (0.2-1.0) E.U./dL Ur Leukocyte Esterase Negative (NEGATIVE) Urine RBC 0-5 /HPF Urine WBC 0-5 /HPF Ur Epithelial Cells Occasional /LPF Amorphous Sediment Moderate H (0/HPF) /HPF Urine Bacteria Few (NONE TO FEW) /HPF Meds: Medications Generic Name Dose Route Start Last Admin Trade Name Freq PRN Reason Stop Dose Admin Sodium Chloride 50 mls @ 3 mls/sec 12/03/17 19:45 Normal Saline IV ASDIRECTED HALLIE Iopamidol 75 ml 12/03/17 19:36 Isovue-300 (61%) IV . DIRECTED PRN FOR RADIOLOGY EXAM Sodium Chloride 5 ml 12/03/17 19:21 Syrex Flush FLUSH Q8HR PRN Keep Vein Open Discontinued Medications Generic Name Dose Route Start Last Admin Trade Name Freq PRN Reason Stop Dose Admin Sodium Chloride 1,000 mls @ 999 mls/hr 12/03/17 20:25 12/03/17 20:40 Normal Saline IV 12/03/17 21:25 999 mls/hr .BOLUS ONE Administration - Radiology Interpretation Free Text/Narrative:: CT abd/pelvis- Filing defect in cecum suspicious for malignancy, recommending colonoscopy/biopsy. - Re-Assessments/Exams Free Text/Narrative Re-Assessment/Exam: 12/03/17 22:00 Discussed case with Mikey Vasquez- Pt is to follow up in clinic tomorrow for GI/ colonoscopy arrangements. Pt was given instruction for return for worsening pain , or signs of bowel obstruction. Departure - Departure Time of Disposition: 22:07 Disposition: Home, Self-Care 01 Condition: Fair Clinical Impression: Mass of cecum Abdominal pain Qualifiers: Abdominal location: right lower quadrant Qualified Code(s): R10.31 - Right lower quadrant pain - Discharge Information Instructions: Abdominal Pain, Adult, Colonoscopy, Adult Referrals: Diann Castellon MD [Primary Care Provider] - Forms: ED Department Discharge Additional Instructions: 1. follow up in [facility] tomorrow for GI oncology or GI follow up 2. clear liquid diet 3. return to ER for worsening symptoms- vomiting, severe pain, inability to move bowels, or blood in stool - My Orders Last 24 Hours: My Active Orders 12/03/17 19:21 Sodium Chloride 0.9% [Syrex Flush] 5 ml FLUSH Q8HR PRN Peripheral IV Insertion Adult [OM.PC] Routine 12/03/17 19:22 Peripheral IV Care [RC] . DIRECTED 12/03/17 19:31 Abdomen Pelvis w Cont [CT] Stat 12/03/17 19:35 UA W/MICROSCOPIC [URIN] Stat 12/03/17 19:36 Iopamidol [Isovue-300 (61%)] 75 ml IV . DIRECTED PRN 12/03/17 19:45 Sodium Chloride 0.9% [Normal Saline] 50 ml IV ASDIRECTED - Assessment/Plan Last 24 Hours: My Active Orders 12/03/17 19:21 Sodium Chloride 0.9% [Syrex Flush] 5 ml FLUSH Q8HR PRN Peripheral IV Insertion Adult [OM.PC] Routine 12/03/17 19:22 Peripheral IV Care [RC] . DIRECTED 12/03/17 19:31 Abdomen Pelvis w Cont [CT] Stat 12/03/17 19:35 UA W/MICROSCOPIC [URIN] Stat 12/03/17 19:36 Iopamidol [Isovue-300 (61%)] 75 ml IV . DIRECTED PRN 12/03/17 19:45 Sodium Chloride 0.9% [Normal Saline] 50 ml IV ASDIRECTED Assessment:: 1. mass in RLQ suspicious for malignancy without signs of obstruction 2. abdominal pain Plan: 1. follow up in [facility] tomorrow for GI oncology or GI follow up 2. clear liquid diet 3. return to ER for worsening symptoms- vomiting, severe pain, inability to move bowels, or blood in stool
[2017-12-03] MEDS ORDERED: Iopamidol 612 MG/ML 75 ML Bottle IV PRN (19:36)
[2017-12-03] MEDS ORDERED: Sodium Chloride 0.9% 50 ML IV SCH (19:45)
[2017-12-03] MEDS ORDERED: Sodium Chloride 0.9% 1,000 ML IV ONE (20:25)
== END 2017-12-03 22:20 | disposition home or self-care (01) ==
LOC: KA.ED 19:07
DX: K63.89 Other specified diseases of intestine (principal); R10.31 Right lower quadrant pain; I10 Essential (primary) hypertension; Z88.0 Allergy status to penicillin; Z88.1 Allergy status to other antibiotic agents; Z88.2 Allergy status to sulfonamides; Z88.8 Allergy status to other drugs, medicaments and biological substances; Z79.899 Other long term (current) drug therapy; Z79.82 Long term (current) use of aspirin
CPT/HCPCS: 36415; 74177; 80053; 81001; 83690; 85025; 96360; 99284; J7030

== ENCOUNTER 2019-01-14 16:35 | Inpatient (IN) | payer MEDICARE, BC ==
[2019-01-14] MEDS ORDERED: Sodium Chloride 0.9% 1,000 ML IV ONE (17:00)
[2019-01-14] MEDS ORDERED: Iopamidol 755 Mg/ML 75 ML Bottle IVPUSH ONE (17:43)
[2019-01-14] MEDS ORDERED: Sodium Chloride 0.9% 50 ML IV ONE (17:45)
[2019-01-14] MEDS: Sodium Chloride 0.9% 10 ML Syringe FLUSH PRN (18:36)
[2019-01-14] MEDS ORDERED: fentaNYL 100 MCG/2 ML SDV IVPUSH ONE (19:00)
[2019-01-14] MEDS ORDERED: Sodium Chloride 0.9% 500 ML IV SCH (19:00)
[2019-01-14] MEDS ORDERED: carBAMazepine 200 MG Tab PO ONE (19:09)
[2019-01-14] MEDS ORDERED: Sodium Chloride 0.9% 1,000 ML IV SCH (19:15)
[2019-01-14] MEDS ORDERED: Vancomycin 1 GM SDV IV ONE ×2 (19:30→20:15)
--- NOTE | 2019-01-14 19:36 | CT ---
[id number] CT/CT Abdomen Pelvis W IV EXAM: ABDOMEN AND PELVIS CT WITH CONTRAST INDICATION: Abdominal pain, bilirubin in urine and jaundice. COMPARISON: December 03, 2017. DISCUSSION: There is a large partially characterized hiatus hernia containing unobstructed stomach and a segment of the transverse colon. The common hepatic duct is dilated to about 13 mm, the intrahepatic ducts are mildly dilated and there is pneumobilia. These changes are seen to the level of the ampulla with no stone or mass identified by CT. The pneumobilia is chronic, but the ductal dilation has developed relative to prior studies. Consider ERCP to further evaluate for underlying pathology. The gallbladder is surgically absent. Bilateral renal cysts measuring up to 5 cm on the right and 3.3 cm on the left. Diverticulosis of the colon without evidence of diverticulitis. Prominent stool volume in the cecum. Mild to moderate prostatomegaly. Small fat-containing left inguinal hernia. Atherosclerotic plaque seen throughout the abdominal aorta and its major branches. The infrarenal abdominal aorta is ectatic without thaddeus aneurysmal dilation identified. The pancreas, spleen, adrenal glands, small bowel and the appendix are normal in appearance. No adenopathy, free air free fluid. Grade 1 L5-S1 spondylolisthesis relating to bilateral pars defects. Degenerative changes throughout the spine. IMPRESSION: 1. Development of mild intra and extrahepatic biliary duct dilation. No obstructing stone or mass is identified, but ERCP may be useful to further evaluate for underlying pathology. 2. Large hiatus hernia containing a portion of the transverse colon and the majority of the stomach. Julián Reagan MD 01/14/19 0465 Thank you for allowing us to participate in the care of your patient.
[2019-01-14] MEDS: Piperacillin/Tazobactam 3.375 GM in Sodium Chloride 0.9% 100 ML IV SCH ×2 (20:27→20:42)
[2019-01-14] MEDS: Sodium Chloride 0.9% 1,000 ML IV ONE (20:35)
[2019-01-14] MEDS ORDERED: Piperacillin/Tazobactam 3.375 GM in Sodium Chloride 0.9% 100 ML IV ONE (20:45)
[2019-01-14] MEDS: Piperacillin/Tazobactam/Dext 3.375 GM in Premix Bag 1 BAG IV SCH (20:48)
[2019-01-14] MEDS ORDERED: Acetaminophen 325 MG Tab PO PRN (20:50)
[2019-01-14] MEDS: Fluticasone Propionate Nasal Spray 16 GM Bottle NAS SCH (21:47)
[2019-01-15] MEDS: Sodium Chloride 0.9% 1,000 ML IV ONE
[2019-01-15] MEDS ORDERED: Piperacillin/Tazobactam 3.375 GM in Sodium Chloride 0.9% 100 ML IV SCH (02:00)
[2019-01-15] MEDS: Piperacillin/Tazobactam/Dext 3.375 GM in Premix Bag 1 BAG IV SCH ×4 (02:31→20:22)
[2019-01-15] MEDS ORDERED: Sodium Chloride 0.9% 1,000 ML IV ONE (05:21)
[2019-01-15] MEDS: Fluticasone Propionate Nasal Spray 16 GM Bottle NAS SCH ×2 (08:01→20:23)
[2019-01-15] MEDS: Cyanocobalamin (Vitamin B12) 500 MCG Tab PO SCH (08:01)
[2019-01-15] MEDS: carBAMazepine 200 MG Tab PO SCH ×2 (08:02→21:01)
[2019-01-15 08:22] LABS: CHLORIDE,CL 103 mmol/L (98-115); SODIUM,NA 135 mmol/L (136-145)
[2019-01-15] MEDS: Sodium Chloride 0.9% 1,000 ML IV SCH ×2 (10:43→23:39)
--- NOTE | 2019-01-15 11:36 | PCM.PN ---
- General Info Date of Service: 01/15/19 - Patient Data Vitals - Most Recent: Last Vital Signs Temp 98.7 F 01/15/19 06:00 Pulse 73 01/15/19 06:00 Resp 19 01/15/19 06:00 BP 103/64 01/15/19 06:00 Pulse Ox 94 L 01/15/19 06:00 Weight - Most Recent: 174 lb 9.6 oz I&O - Last 24 Hours: Intake & Output 01/14/19 01/15/19 01/15/19 22:59 06:59 14:59 Intake Total 75 781 Output Total 500 625 Balance -425 156 Lab Results Last 24 Hours: Laboratory Results - last 24 hr 01/15/19 01/15/19 Range/Units 07:15 07:15 WBC 10.39 H (5.00-10.00) 10^3/uL RBC 4.04 L (4.50-6.00) 10^6/uL Hgb 12.3 L (13.0-17.0) g/dL Hct 36.4 L (40.0-52.0) % MCV 90.1 (82.0-92.0) fL MCH 30.4 (27.0-31.0) pg MCHC 33.8 (32.0-36.0) g/dL RDW 13.6 (11.5-14.5) % Plt Count 132 L (150-400) 10^3/uL MPV 9.9 (7.4-10.4) fL Immature Gran % (Auto) 0.3 (0.0-5.0) % Neut % (Auto) 80.2 H (50.0-70.0) % Lymph % (Auto) 6.7 L (20.0-40.0) % [place] % (Auto) 10.4 H (2.0-8.0) % Eos % (Auto) 2.0 (1.0-3.0) % Baso % (Auto) 0.4 (0.0-1.0) % Immature Gran # (Auto) 0.03 (0.00-0.50) 10^3/uL Neut # (Auto) 8.33 H (2.50-7.00) 10^3/uL Lymph # (Auto) 0.70 L (1.00-4.00) 10^3/uL [place] # (Auto) 1.08 H (0.10-0.80) 10^3/uL Eos # (Auto) 0.21 (0.10-0.30) 10^3/uL Baso # (Auto) 0.04 (0.00-0.10) 10^3/uL Sodium 135 L (136-145) mmol/L Potassium 3.8 (3.3-5.3) mmol/L Chloride 103 (98-115) mmol/L Carbon Dioxide 22.8 (21.0-32.0) mmol/L Anion Gap 13.0 (5-15) mmol/L BUN 17 (6-25) mg/dL Creatinine 1.03 (0.51-1.17) mg/dL Est Cr Clr Drug Dosing 47.96 mL/min Estimated GFR (MDRD) > 60 mL/min Glucose 103 H (75 - 99) mg/dL Calcium 8.1 L (8.7-10.3) mg/dL Total Bilirubin 8.2 H (0.2-1.0) mg/dL AST 40 H (15-37) U/L ALT 77 (12-78) U/L Alkaline Phosphatase 235 H (46-116) IU/L Total Protein 5.8 L (6.4-8.2) g/dL Albumin 2.37 L (3.00-4.80) g/dL Sammy Results Last 24 Hours: Microbiology 01/14/19 19:10 Aerobic Blood Culture - Preliminary Blood - Venous - Lab Draw Anaerobic Blood Culture - Preliminary 01/14/19 17:35 Aerobic Blood Culture - Preliminary Blood - Venous Anaerobic Blood Culture - Preliminary Med Orders - Current: Current Medications Acetaminophen (Tylenol) 650 mg PO Q4H PRN PRN Reason: Pain (moderate 4-6) Carbamazepine (Tegretol Tab) 200 mg PO BID [facility] Last Admin: 01/15/19 08:02 Dose: 200 mg Cyanocobalamin (Vitamin B12) 1,000 mcg PO DAILY HALLIE Last Admin: 01/15/19 08:01 Dose: 1,000 mcg Fluticasone Propionate (Flonase) 0 gm EVER BID [facility] Last Admin: 01/15/19 08:01 Dose: 1 spray Piperacillin/Tazobactam/ (Dextrose 3.375 gm/ Premix) 50 mls @ 100 mls/hr IV Q6H [facility] Last Admin: 01/15/19 08:02 Dose: 100 mls/hr Vancomycin HCl 1.25 gm/ Sodium (Chloride) 250 mls @ 166.667 mls/hr IV Q24H HALLIE Sodium Chloride (Normal Saline) 1,000 mls @ 100 mls/hr IV ASDIRECTED [facility] Last Admin: 01/15/19 10:43 Dose: 100 mls/hr Sodium Chloride (Saline Flush) 10 ml FLUSH Q8HR PRN PRN Reason: keep vein open Last Admin: 01/14/19 18:36 Dose: 10 ml Vancomycin HCl (Pharmacy To Dose - Vancomycin) 1 dose .XX ASDIRECTED [facility] Discontinued Medications Carbamazepine (Tegretol Tab) 200 mg PO ONETIME ONE Stop: 01/14/19 19:10 Last Admin: 01/14/19 21:57 Dose: 200 mg Fentanyl (Sublimaze) 25 mcg IVPUSH ONETIME ONE Stop: 01/14/19 19:01 Last Admin: 01/14/19 19:33 Dose: 25 mcg Sodium Chloride (Normal Saline) 1,000 mls @ 200 mls/hr IV .BOLUS ONE Stop: 01/14/19 21:59 Last Admin: 01/14/19 20:10 Dose: Not Given Vancomycin HCl 1 gm/ Sodium (Chloride) 250 mls @ 167 mls/hr IV Q24H [facility] Last Admin: 01/14/19 18:36 Dose: 167 mls/hr Sodium Chloride (Normal Saline) 50 mls @ 200 mls/hr IV ASDIRECTED ONE Stop: 01/14/19 17:59 Last Admin: 01/14/19 18:43 Dose: 200 mls/hr Piperacillin Sod/Tazobactam (Sod 3.375 gm/ Sodium Chloride) 100 mls @ 30 mls/ hr IV Q6H [facility] Last Admin: 01/14/19 20:42 Dose: Not Given Sodium Chloride (Normal Saline) 500 mls @ 500 mls/hr IV ASDIRECTED HALLIE Last Admin: 01/14/19 19:35 Dose: 500 mls/hr Sodium Chloride (Normal Saline) 1,000 mls @ 100 mls/hr IV CONTINUOUS [facility] Sodium Chloride (Normal Saline) 1,000 mls @ 100 mls/hr IV ASDIRECTED ONE Stop: 01/15/19 05:14 Last Admin: 01/15/19 00:00 Dose: 100 mls/hr Piperacillin Sod/Tazobactam (Sod 3.375 gm/ Sodium Chloride) 100 mls @ 200 mls/ hr IV ONETIME ONE Stop: 01/14/19 21:14 Piperacillin Sod/Tazobactam (Sod 3.375 gm/ Sodium Chloride) 100 mls @ 30 mls/ hr IV Q6H HALLIE Iopamidol (Isovue-370 (76%)) 75 ml IVPUSH ONETIME ONE Stop: 01/14/19 17:44 Last Admin: 01/14/19 18:43 Dose: 75 ml Vancomycin HCl (Vancomycin) 0.5 gm IV ONETIME ONE Stop: 01/14/19 19:31 Last Admin: 01/14/19 21:20 Dose: Not Given Vancomycin HCl (Vancomycin) 0.5 gm IV ONETIME ONE Stop: 01/14/19 20:16 Last Admin: 01/14/19 21:44 Dose: 0.5 gm - Problem List Review Problem List Initiated/Reviewed/Updated: Yes - Plan Plan:: history Mr Marquez is a an 88-year-old gentleman who was seen/evaluated/admitted from Dr Feng from [facility] due to concerns of sepsis. He had came in c/o severe shaking and elevated temperature. she does have a history of sepsis Previous history of E. coli sepsis March 2017 in which he had acute cholecystitis and cholelithiasis. he admitted t some pulmonary phlgem, dark urine and some abd pain. He was admit and placed abx and further workup. Pertinent outpatient labs T 100.4 white count 5.4 neutrophils 78% T.Bilili 7.1 Alkaline phos 303 ALT 98 AST 47 Lactic Acid 4.2 before hydration UA: Bright orange, slightly cloudy large bilirubin, trace of blood, negative bacteria/leuko abdominal CT, mild intra-and extrahepatic biliary duct dilation, no obstructing , large hiatal hernia Labs today WBC 10.3 Neutrophils 80% Electrolytes satisfactory T. Bili 8.2 (lagging) AST 40 ALT 77 (ration 2:1) Alkaline phos 235 (favorable trend) primary hospital problems Sepsis without septic shock Overall plan/disposition --Continue antibiotics --Repeat lactic acid --UC, BC pending --IV fluids --monitor for signs of septic shock, hemodynamic instability, fever jaundice more abdominal pain. No obstructing stone is reassuring.
[2019-01-15] MEDS: Sodium Chloride 0.9% 10 ML Syringe FLUSH PRN (21:04)
[2019-01-16] MEDS: Piperacillin/Tazobactam/Dext 3.375 GM in Premix Bag 1 BAG IV SCH ×4 (02:25→20:18)
[2019-01-16 09:18] LABS: ANION GAP 12.1 mmol/L (5-15); CHLORIDE,CL 103 mmol/L (98-115); SODIUM,NA 135 mmol/L (136-145)
[2019-01-16] MEDS: carBAMazepine 200 MG Tab PO SCH ×2 (09:23→20:23)
[2019-01-16] MEDS: Cyanocobalamin (Vitamin B12) 500 MCG Tab PO SCH (09:23)
[2019-01-16] MEDS: Fluticasone Propionate Nasal Spray 16 GM Bottle NAS SCH ×2 (09:24→20:19)
--- NOTE | 2019-01-16 09:59 | PCM.PN ---
- General Info Date of Service: 01/16/19 Functional Status: Reports: Pain Controlled, Tolerating Diet, Ambulating, Urinating. Denies: New Symptoms - Review of Systems General: Denies: Fever HEENT: Reports: Post Nasal Drip, Sinus Congestion, Rhinitis Pulmonary: Reports: No Symptoms Cardiovascular: Reports: No Symptoms Gastrointestinal: Denies: Abdominal Pain, Diarrhea, Nausea Genitourinary: Reports: No Symptoms Musculoskeletal: Reports: No Symptoms Skin: Reports: Other (improving jaundice) Neurological: Reports: No Symptoms Psychiatric: Reports: No Symptoms - Patient Data Vitals - Most Recent: Last Vital Signs Temp 99.1 F 01/16/19 06:25 Pulse 95 01/16/19 06:25 Resp 18 01/16/19 06:25 BP 120/70 01/16/19 06:25 Pulse Ox 93 L 01/16/19 06:25 Weight - Most Recent: 177 lb 3 oz I&O - Last 24 Hours: Intake & Output 01/15/19 01/16/19 01/16/19 22:59 06:59 14:59 Intake Total 1331 797 Output Total 700 1300 Balance 631 -503 Lab Results Last 24 Hours: Laboratory Results - last 24 hr 01/15/19 01/16/19 Range/Units 07:15 08:45 Sodium 135 L (136-145) mmol/L Potassium 3.9 (3.3-5.3) mmol/L Chloride 103 (98-115) mmol/L Carbon Dioxide 23.8 (21.0-32.0) mmol/L Anion Gap 12.1 (5-15) mmol/L BUN 15 (6-25) mg/dL Creatinine 0.94 (0.51-1.17) mg/dL Est Cr Clr Drug Dosing 52.55 mL/min Estimated GFR (MDRD) > 60 mL/min Glucose 122 H (75 - 99) mg/dL Lactic Acid 1.1 (0.4-2.0) mmol/L Calcium 8.3 L (8.7-10.3) mg/dL Total Bilirubin 8.3 H (0.2-1.0) mg/dL AST 36 (15-37) U/L ALT 66 (12-78) U/L Alkaline Phosphatase 247 H (46-116) IU/L Total Protein 6.5 (6.4-8.2) g/dL Albumin 2.56 L (3.00-4.80) g/dL Sammy Results Last 24 Hours: Microbiology 01/14/19 19:10 Aerobic Blood Culture - Preliminary Blood - Venous - Lab Draw Anaerobic Blood Culture - Preliminary 01/14/19 17:35 Aerobic Blood Culture - Preliminary Blood - Venous Anaerobic Blood Culture - Preliminary Med Orders - Current: Current Medications Acetaminophen (Tylenol) 650 mg PO Q4H PRN PRN Reason: Pain (moderate 4-6) Carbamazepine (Tegretol Tab) 200 mg PO BID [facility] Last Admin: 01/16/19 09:23 Dose: 200 mg Cyanocobalamin (Vitamin B12) 1,000 mcg PO DAILY [facility] Last Admin: 01/16/19 09:23 Dose: 1,000 mcg Fluticasone Propionate (Flonase) 0 gm EVER BID [facility] Last Admin: 01/16/19 09:24 Dose: Not Given Piperacillin/Tazobactam/ (Dextrose 3.375 gm/ Premix) 50 mls @ 100 mls/hr IV Q6H [facility] Last Admin: 01/16/19 09:24 Dose: 100 mls/hr Vancomycin HCl 1.25 gm/ Sodium (Chloride) 250 mls @ 166.667 mls/hr IV Q24H [facility] Last Admin: 01/15/19 21:04 Dose: 166.667 mls/hr Sodium Chloride (Normal Saline) 1,000 mls @ 100 mls/hr IV ASDIRECTED [facility] Last Admin: 01/15/19 23:39 Dose: 100 mls/hr Sodium Chloride (Saline Flush) 10 ml FLUSH Q8HR PRN PRN Reason: keep vein open Last Admin: 01/15/19 21:04 Dose: 10 ml Vancomycin HCl (Pharmacy To Dose - Vancomycin) 1 dose .XX ASDIRECTED [facility] Discontinued Medications Carbamazepine (Tegretol Tab) 200 mg PO ONETIME ONE Stop: 01/14/19 19:10 Last Admin: 01/14/19 21:57 Dose: 200 mg Fentanyl (Sublimaze) 25 mcg IVPUSH ONETIME ONE Stop: 01/14/19 19:01 Last Admin: 01/14/19 19:33 Dose: 25 mcg Sodium Chloride (Normal Saline) 1,000 mls @ 200 mls/hr IV .BOLUS ONE Stop: 01/14/19 21:59 Last Admin: 01/14/19 20:10 Dose: Not Given Vancomycin HCl 1 gm/ Sodium (Chloride) 250 mls @ 167 mls/hr IV Q24H [facility] Last Admin: 01/14/19 18:36 Dose: 167 mls/hr Sodium Chloride (Normal Saline) 50 mls @ 200 mls/hr IV ASDIRECTED ONE Stop: 01/14/19 17:59 Last Admin: 01/14/19 18:43 Dose: 200 mls/hr Piperacillin Sod/Tazobactam (Sod 3.375 gm/ Sodium Chloride) 100 mls @ 30 mls/ hr IV Q6H [facility] Last Admin: 01/14/19 20:42 Dose: Not Given Sodium Chloride (Normal Saline) 500 mls @ 500 mls/hr IV ASDIRECTED [facility] Last Admin: 01/14/19 19:35 Dose: 500 mls/hr Sodium Chloride (Normal Saline) 1,000 mls @ 100 mls/hr IV CONTINUOUS [facility] Sodium Chloride (Normal Saline) 1,000 mls @ 100 mls/hr IV ASDIRECTED ONE Stop: 01/15/19 05:14 Last Admin: 01/15/19 00:00 Dose: 100 mls/hr Piperacillin Sod/Tazobactam (Sod 3.375 gm/ Sodium Chloride) 100 mls @ 200 mls/ hr IV ONETIME ONE Stop: 01/14/19 21:14 Piperacillin Sod/Tazobactam (Sod 3.375 gm/ Sodium Chloride) 100 mls @ 30 mls/ hr IV Q6H [facility] Iopamidol (Isovue-370 (76%)) 75 ml IVPUSH ONETIME ONE Stop: 01/14/19 17:44 Last Admin: 01/14/19 18:43 Dose: 75 ml Vancomycin HCl (Vancomycin) 0.5 gm IV ONETIME ONE Stop: 01/14/19 19:31 Last Admin: 01/14/19 21:20 Dose: Not Given Vancomycin HCl (Vancomycin) 0.5 gm IV ONETIME ONE Stop: 01/14/19 20:16 Last Admin: 01/14/19 21:44 Dose: 0.5 gm - Exam Quality Assessment: No: Supplemental Oxygen General: Alert, Oriented HEENT: Other (slight jaundice). No: Scleral Icterus Neck: Supple Lungs: Clear to Auscultation, Normal Respiratory Effort Cardiovascular: Regular Rate, Regular Rhythm GI/Abdominal Exam: Soft, No Organomegaly, No Distention (Male) Exam: Deferred Back Exam: No: CVA Tenderness (L), CVA Tenderness (R) Extremities: No: Pedal Edema Peripheral Pulses: 2+: Radial (L), Radial (R) Skin: Other (slight jaundice to skin however improving) - Problem List Review Problem List Initiated/Reviewed/Updated: Yes - My Orders Last 24 Hours: My Active Orders 01/15/19 12:58 Consult to Hand Alterations Tailor [CONS] Routine - Plan Plan:: history Mr Marquez is a an 88-year-old gentleman who was seen/evaluated/admitted from Dr Feng from [facility] due to concerns of sepsis. He had came in c/o severe shaking and elevated temperature. she does have a history of sepsis Previous history of E. coli sepsis March 2017 in which he had acute cholecystitis and cholelithiasis. he did admit to some pulmonary phlgem, dark urine and some abd pain. He was admit and placed abx and further workup. Pertinent outpatient labs T 100.4 white count 5.4 neutrophils 78% T.Bilili 7.1 Alkaline phos 303 ALT 98 AST 47 Lactic Acid 4.2 before hydration UA: Bright orange, slightly cloudy large bilirubin, trace of blood, negative bacteria/leuko abdominal CT, mild intra-and extrahepatic biliary duct dilation, no obstructing stone, large hiatal hernia Labs today Neutrophils 80% Electrolytes satisfactory T. Bili 8.2 (lagging) AST 36 ALT 66 (ratio improving) Alkaline phos 247 BC: BOTH anaerobic/aerobic preliminary gr neg rods primary hospital problems Sepsis/bacteremia without septic shock Overall plan/disposition --Since anaerobic gram-negative rods will discontinue vancomycin and continue on Zoysn. --repeated Lactic acid neg --UC, pending, --Decrease IV fluids --monitor for signs of septic shock, hemodynamic instability, fever jaundice more abdominal pain. No obstructing stone is reassuring. Likeley will need BC surveillance to clearance
[2019-01-16] MEDS: Sodium Chloride 0.9% 1,000 ML IV SCH (10:59)
[2019-01-17] MEDS: Sodium Chloride 0.9% 1,000 ML IV SCH ×2 (02:03→16:57)
[2019-01-17] MEDS: Piperacillin/Tazobactam/Dext 3.375 GM in Premix Bag 1 BAG IV SCH ×4 (02:03→20:40)
[2019-01-17 08:16] LABS: ANION GAP 12.4 mmol/L (5-15); CHLORIDE,CL 104 mmol/L (98-115); SODIUM,NA 136 mmol/L (136-145)
[2019-01-17] MEDS: Fluticasone Propionate Nasal Spray 16 GM Bottle NAS SCH ×2 (08:17→20:43)
[2019-01-17] MEDS: Cyanocobalamin (Vitamin B12) 500 MCG Tab PO SCH (08:18)
[2019-01-17] MEDS: carBAMazepine 200 MG Tab PO SCH ×2 (08:18→20:43)
--- NOTE | 2019-01-17 13:47 | PCM.PN ---
- General Info Date of Service: 01/17/19 Admission Dx/Problem (Free Text): Sepsis - Patient Data Vitals - Most Recent: Last Vital Signs Temp 98.4 F 01/17/19 11:00 Pulse 67 01/17/19 11:00 Resp 20 01/17/19 11:00 BP 129/79 01/17/19 11:00 Pulse Ox 96 01/17/19 11:00 Weight - Most Recent: 177 lb 3 oz I&O - Last 24 Hours: Intake & Output 01/16/19 01/17/19 01/17/19 22:59 06:59 14:59 Intake Total 605 585 Output Total 1100 1200 Balance -495 -615 Lab Results Last 24 Hours: Laboratory Results - last 24 hr 01/17/19 01/17/19 Range/Units 07:35 07:35 WBC 6.61 (5.00-10.00) 10^3/uL RBC 3.93 L (4.50-6.00) 10^6/uL Hgb 12.0 L (13.0-17.0) g/dL Hct 35.5 L (40.0-52.0) % MCV 90.3 (82.0-92.0) fL MCH 30.5 (27.0-31.0) pg MCHC 33.8 (32.0-36.0) g/dL RDW 14.0 (11.5-14.5) % Plt Count 138 L (150-400) 10^3/uL MPV 9.3 (7.4-10.4) fL Immature Gran % (Auto) 0.5 (0.0-5.0) % Neut % (Auto) 75.8 H (50.0-70.0) % Lymph % (Auto) 11.3 L (20.0-40.0) % [place] % (Auto) 8.0 (2.0-8.0) % Eos % (Auto) 3.9 H (1.0-3.0) % Baso % (Auto) 0.5 (0.0-1.0) % Immature Gran # (Auto) 0.03 (0.00-0.50) 10^3/uL Neut # (Auto) 5.01 (2.50-7.00) 10^3/uL Lymph # (Auto) 0.75 L (1.00-4.00) 10^3/uL [place] # (Auto) 0.53 (0.10-0.80) 10^3/uL Eos # (Auto) 0.26 (0.10-0.30) 10^3/uL Baso # (Auto) 0.03 (0.00-0.10) 10^3/uL Sodium 136 (136-145) mmol/L Potassium 3.6 (3.3-5.3) mmol/L Chloride 104 (98-115) mmol/L Carbon Dioxide 23.2 (21.0-32.0) mmol/L Anion Gap 12.4 (5-15) mmol/L BUN 15 (6-25) mg/dL Creatinine 1.01 (0.51-1.17) mg/dL Est Cr Clr Drug Dosing 48.91 mL/min Estimated GFR (MDRD) > 60 mL/min Glucose 101 H (75 - 99) mg/dL Calcium 8.3 L (8.7-10.3) mg/dL Total Bilirubin 5.0 H (0.2-1.0) mg/dL AST 29 (15-37) U/L ALT 55 (12-78) U/L Alkaline Phosphatase 211 H (46-116) IU/L Total Protein 6.3 L (6.4-8.2) g/dL Albumin 2.40 L (3.00-4.80) g/dL Sammy Results Last 24 Hours: Microbiology 01/14/19 19:10 Aerobic Blood Culture - Final Blood - Venous - Lab Draw Anaerobic Blood Culture - Final 01/14/19 17:35 Aerobic Blood Culture - Final Blood - Venous Anaerobic Blood Culture - Final 01/14/19 19:10 Bacterial Identification - Preliminary Blood - Arm, Right Gram Negative Rods 01/14/19 17:35 Bacterial Identification - Preliminary Blood - Arm, Left Gram Negative Rods Med Orders - Current: Current Medications Acetaminophen (Tylenol) 650 mg PO Q4H PRN PRN Reason: Pain (moderate 4-6) Carbamazepine (Tegretol Tab) 200 mg PO BID [facility] Last Admin: 01/17/19 08:18 Dose: 200 mg Cyanocobalamin (Vitamin B12) 1,000 mcg PO DAILY [facility] Last Admin: 01/17/19 08:18 Dose: 1,000 mcg Fluticasone Propionate (Flonase) 0 gm EVER BID [facility] Last Admin: 01/17/19 08:17 Dose: 1 spray Piperacillin/Tazobactam/ (Dextrose 3.375 gm/ Premix) 50 mls @ 100 mls/hr IV Q6H [facility] Last Admin: 01/17/19 08:18 Dose: 100 mls/hr Sodium Chloride (Normal Saline) 1,000 mls @ 75 mls/hr IV ASDIRECTED [facility] Last Admin: 01/17/19 02:03 Dose: 75 mls/hr Sodium Chloride (Saline Flush) 10 ml FLUSH Q8HR PRN PRN Reason: keep vein open Last Admin: 01/15/19 21:04 Dose: 10 ml Discontinued Medications Carbamazepine (Tegretol Tab) 200 mg PO ONETIME ONE Stop: 01/14/19 19:10 Last Admin: 01/14/19 21:57 Dose: 200 mg Fentanyl (Sublimaze) 25 mcg IVPUSH ONETIME ONE Stop: 01/14/19 19:01 Last Admin: 01/14/19 19:33 Dose: 25 mcg Sodium Chloride (Normal Saline) 1,000 mls @ 200 mls/hr IV .BOLUS ONE Stop: 01/14/19 21:59 Last Admin: 01/14/19 20:10 Dose: Not Given Vancomycin HCl 1 gm/ Sodium (Chloride) 250 mls @ 167 mls/hr IV Q24H [facility] Last Admin: 01/14/19 18:36 Dose: 167 mls/hr Sodium Chloride (Normal Saline) 50 mls @ 200 mls/hr IV ASDIRECTED ONE Stop: 01/14/19 17:59 Last Admin: 01/14/19 18:43 Dose: 200 mls/hr Piperacillin Sod/Tazobactam (Sod 3.375 gm/ Sodium Chloride) 100 mls @ 30 mls/ hr IV Q6H [facility] Last Admin: 01/14/19 20:42 Dose: Not Given Sodium Chloride (Normal Saline) 500 mls @ 500 mls/hr IV ASDIRECTED [facility] Last Admin: 01/14/19 19:35 Dose: 500 mls/hr Sodium Chloride (Normal Saline) 1,000 mls @ 100 mls/hr IV CONTINUOUS [facility] Sodium Chloride (Normal Saline) 1,000 mls @ 100 mls/hr IV ASDIRECTED ONE Stop: 01/15/19 05:14 Last Admin: 01/15/19 00:00 Dose: 100 mls/hr Piperacillin Sod/Tazobactam (Sod 3.375 gm/ Sodium Chloride) 100 mls @ 200 mls/ hr IV ONETIME ONE Stop: 01/14/19 21:14 Piperacillin Sod/Tazobactam (Sod 3.375 gm/ Sodium Chloride) 100 mls @ 30 mls/ hr IV Q6H [facility] Vancomycin HCl 1.25 gm/ Sodium (Chloride) 250 mls @ 166.667 mls/hr IV Q24H [facility] Last Admin: 01/15/19 21:04 Dose: 166.667 mls/hr Sodium Chloride (Normal Saline) 1,000 mls @ 100 mls/hr IV ASDIRECTED [facility] Last Admin: 01/15/19 23:39 Dose: 100 mls/hr Iopamidol (Isovue-370 (76%)) 75 ml IVPUSH ONETIME ONE Stop: 01/14/19 17:44 Last Admin: 01/14/19 18:43 Dose: 75 ml Vancomycin HCl (Pharmacy To Dose - Vancomycin) 1 dose .XX ASDIRECTED [facility] Vancomycin HCl (Vancomycin) 0.5 gm IV ONETIME ONE Stop: 01/14/19 19:31 Last Admin: 01/14/19 21:20 Dose: Not Given Vancomycin HCl (Vancomycin) 0.5 gm IV ONETIME ONE Stop: 01/14/19 20:16 Last Admin: 01/14/19 21:44 Dose: 0.5 gm - Problem List Review Problem List Initiated/Reviewed/Updated: Yes - Plan Plan:: history Mr Marquez is a an 88-year-old gentleman who was seen/evaluated/admitted from Dr Feng from [facility] due to concerns of sepsis. He had came in c/o severe shaking and elevated temperature. He does have a history of sepsis with E. coli bacteremia in March 2017 in which he had acute cholecystitis and cholelithiasis. he did admit to some pulmonary phlgem, dark urine and some abd pain. He was admit and placed abx and further workup. Pertinent outpatient labs T 100.4 white count 5.4 neutrophils 78% T.Bilili 7.1 Alkaline phos 303 ALT 98 AST 47 Lactic Acid 4.2 before hydration UA: Bright orange, slightly cloudy large bilirubin, trace of blood, negative bacteria/leuko abdominal CT, mild intra-and extrahepatic biliary duct dilation, no obstructing stone, large hiatal hernia Hospital course: Patient afebrile since admit WBC improved from 10.39 to 6.61 Electrolytes satisfactory T. Bili improved from 8.3 to 5.0. AST 29 ALT 55 Alkaline phos 211 BC: BOTH anaerobic/aerobic preliminary gr neg rods primary hospital problems Sepsis/bacteremia without septic shock Chronic conditions: #Trigeminal Neuralgia- on Carbamazepine #Vitamin B12 deficiency- on supplemental Vitamin B12 #Dyspepsia- on Omeprazole. Overall plan/disposition --Since anaerobic gram-negative rods continue on Zoysn. --repeat Lactic acid was neg --Urine culture is pending --Continue IV fluids at current rate --monitor for signs of septic shock, hemodynamic instability, fever jaundice more abdominal pain. Likely will need BC surveillance to clearance
[2019-01-18] MEDS: Piperacillin/Tazobactam/Dext 3.375 GM in Premix Bag 1 BAG IV SCH ×4 (02:54→21:09)
[2019-01-18] MEDS: Sodium Chloride 0.9% 1,000 ML IV SCH (06:48)
[2019-01-18] MEDS: Fluticasone Propionate Nasal Spray 16 GM Bottle NAS SCH ×2 (08:58→21:07)
[2019-01-18] MEDS: carBAMazepine 200 MG Tab PO SCH ×2 (08:59→21:06)
[2019-01-18] MEDS: Cyanocobalamin (Vitamin B12) 500 MCG Tab PO SCH (09:05)
[2019-01-18 11:28] LABS: CHLORIDE,CL 105 mmol/L (98-115); SODIUM,NA 140 mmol/L (136-145)
--- NOTE | 2019-01-18 14:18 | PCM.PN ---
- General Info Date of Service: 01/18/19 Functional Status: Reports: Tolerating Diet, Ambulating, Urinating - Review of Systems General: Reports: Other (improving Appetite. ) HEENT: Reports: No Symptoms Pulmonary: Denies: Shortness of Breath, Cough, Sputum, Wheezing Cardiovascular: Denies: Chest Pain, Palpitations, Dyspnea on Exertion, Orthopnea Gastrointestinal: Denies: Abdominal Pain, Constipation, Diarrhea, Vomiting Genitourinary: Reports: No Symptoms Musculoskeletal: Reports: No Symptoms Skin: Reports: Jaundice (improving) Neurological: Reports: No Symptoms Psychiatric: Reports: No Symptoms - Patient Data Vitals - Most Recent: Last Vital Signs Temp 98.1 F 01/18/19 11:00 Pulse 63 01/18/19 11:00 Resp 18 01/18/19 11:00 BP 136/78 01/18/19 11:00 Pulse Ox 95 01/18/19 11:00 Weight - Most Recent: 177 lb 3 oz I&O - Last 24 Hours: Intake & Output 01/17/19 01/18/19 01/18/19 22:59 06:59 14:59 Intake Total 1472 390 Output Total 600 1900 Balance 872 -1510 Lab Results Last 24 Hours: Laboratory Results - last 24 hr 01/18/19 01/18/19 Range/Units 10:45 10:45 WBC 5.44 (5.00-10.00) 10^3/uL RBC 4.05 L (4.50-6.00) 10^6/uL Hgb 12.4 L (13.0-17.0) g/dL Hct 36.7 L (40.0-52.0) % MCV 90.6 (82.0-92.0) fL MCH 30.6 (27.0-31.0) pg MCHC 33.8 (32.0-36.0) g/dL RDW 13.9 (11.5-14.5) % Plt Count 157 (150-400) 10^3/uL MPV 9.4 (7.4-10.4) fL Immature Gran % (Auto) 0.7 (0.0-5.0) % Neut % (Auto) 72.4 H (50.0-70.0) % Lymph % (Auto) 13.8 L (20.0-40.0) % [place] % (Auto) 8.6 H (2.0-8.0) % Eos % (Auto) 3.9 H (1.0-3.0) % Baso % (Auto) 0.6 (0.0-1.0) % Immature Gran # (Auto) 0.04 (0.00-0.50) 10^3/uL Neut # (Auto) 3.94 (2.50-7.00) 10^3/uL Lymph # (Auto) 0.75 L (1.00-4.00) 10^3/uL [place] # (Auto) 0.47 (0.10-0.80) 10^3/uL Eos # (Auto) 0.21 (0.10-0.30) 10^3/uL Baso # (Auto) 0.03 (0.00-0.10) 10^3/uL Sodium 140 (136-145) mmol/L Potassium 3.8 (3.3-5.3) mmol/L Chloride 105 (98-115) mmol/L Carbon Dioxide 21.8 (21.0-32.0) mmol/L Anion Gap 17.0 H (5-15) mmol/L BUN 15 (6-25) mg/dL Creatinine 0.90 (0.51-1.17) mg/dL Est Cr Clr Drug Dosing 54.89 mL/min Estimated GFR (MDRD) > 60 mL/min Glucose 133 H (75 - 99) mg/dL Calcium 8.4 L (8.7-10.3) mg/dL Total Bilirubin 3.7 H (0.2-1.0) mg/dL Direct Bilirubin 2.9 H* (0.0-0.2) mg/dL Indirect Bilirubin 0.8 mg/dL AST 32 (15-37) U/L ALT 58 (12-78) U/L Alkaline Phosphatase 220 H (46-116) IU/L Total Protein 6.1 L (6.4-8.2) g/dL Albumin 2.57 L (3.00-4.80) g/dL Globulin 3.53 Albumin/Globulin Ratio 0.72 Sammy Results Last 24 Hours: Microbiology 01/14/19 17:35 Bacterial Identification - Final Blood - Arm, Left Escherichia Coli 01/14/19 19:10 Bacterial Identification - Preliminary Blood - Arm, Right Gram Negative Rods Gram Negative Rods#2 01/14/19 19:10 Aerobic Blood Culture - Final Blood - Venous - Lab Draw Anaerobic Blood Culture - Final 01/14/19 17:35 Aerobic Blood Culture - Final Blood - Venous Anaerobic Blood Culture - Final Med Orders - Current: Current Medications Acetaminophen (Tylenol) 650 mg PO Q4H PRN PRN Reason: Pain (moderate 4-6) Carbamazepine (Tegretol Tab) 200 mg PO BID [facility] Last Admin: 01/18/19 08:59 Dose: 200 mg Cyanocobalamin (Vitamin B12) 1,000 mcg PO DAILY [facility] Last Admin: 01/18/19 09:05 Dose: 1,000 mcg Fluticasone Propionate (Flonase) 0 gm EVER BID [facility] Last Admin: 01/18/19 08:58 Dose: 1 spray Piperacillin/Tazobactam/ (Dextrose 3.375 gm/ Premix) 50 mls @ 100 mls/hr IV Q6H [facility] Last Admin: 01/18/19 08:59 Dose: 100 mls/hr Sodium Chloride (Normal Saline) 1,000 mls @ 75 mls/hr IV ASDIRECTED [facility] Last Admin: 01/18/19 06:48 Dose: 75 mls/hr Sodium Chloride (Saline Flush) 10 ml FLUSH Q8HR PRN PRN Reason: keep vein open Last Admin: 01/15/19 21:04 Dose: 10 ml Discontinued Medications Carbamazepine (Tegretol Tab) 200 mg PO ONETIME ONE Stop: 01/14/19 19:10 Last Admin: 01/14/19 21:57 Dose: 200 mg Fentanyl (Sublimaze) 25 mcg IVPUSH ONETIME ONE Stop: 01/14/19 19:01 Last Admin: 01/14/19 19:33 Dose: 25 mcg Sodium Chloride (Normal Saline) 1,000 mls @ 200 mls/hr IV .BOLUS ONE Stop: 01/14/19 21:59 Last Admin: 01/14/19 20:10 Dose: Not Given Vancomycin HCl 1 gm/ Sodium (Chloride) 250 mls @ 167 mls/hr IV Q24H [facility] Last Admin: 01/14/19 18:36 Dose: 167 mls/hr Sodium Chloride (Normal Saline) 50 mls @ 200 mls/hr IV ASDIRECTED ONE Stop: 01/14/19 17:59 Last Admin: 01/14/19 18:43 Dose: 200 mls/hr Piperacillin Sod/Tazobactam (Sod 3.375 gm/ Sodium Chloride) 100 mls @ 30 mls/ hr IV Q6H [facility] Last Admin: 01/14/19 20:42 Dose: Not Given Sodium Chloride (Normal Saline) 500 mls @ 500 mls/hr IV ASDIRECTED [facility] Last Admin: 01/14/19 19:35 Dose: 500 mls/hr Sodium Chloride (Normal Saline) 1,000 mls @ 100 mls/hr IV CONTINUOUS [facility] Sodium Chloride (Normal Saline) 1,000 mls @ 100 mls/hr IV ASDIRECTED ONE Stop: 01/15/19 05:14 Last Admin: 01/15/19 00:00 Dose: 100 mls/hr Piperacillin Sod/Tazobactam (Sod 3.375 gm/ Sodium Chloride) 100 mls @ 200 mls/ hr IV ONETIME ONE Stop: 01/14/19 21:14 Piperacillin Sod/Tazobactam (Sod 3.375 gm/ Sodium Chloride) 100 mls @ 30 mls/ hr IV Q6H [facility] Vancomycin HCl 1.25 gm/ Sodium (Chloride) 250 mls @ 166.667 mls/hr IV Q24H [facility] Last Admin: 01/15/19 21:04 Dose: 166.667 mls/hr Sodium Chloride (Normal Saline) 1,000 mls @ 100 mls/hr IV ASDIRECTED [facility] Last Admin: 01/15/19 23:39 Dose: 100 mls/hr Iopamidol (Isovue-370 (76%)) 75 ml IVPUSH ONETIME ONE Stop: 01/14/19 17:44 Last Admin: 01/14/19 18:43 Dose: 75 ml Vancomycin HCl (Pharmacy To Dose - Vancomycin) 1 dose .XX ASDIRECTED [facility] Vancomycin HCl (Vancomycin) 0.5 gm IV ONETIME ONE Stop: 01/14/19 19:31 Last Admin: 01/14/19 21:20 Dose: Not Given Vancomycin HCl (Vancomycin) 0.5 gm IV ONETIME ONE Stop: 01/14/19 20:16 Last Admin: 01/14/19 21:44 Dose: 0.5 gm - Exam General: Alert, Oriented HEENT: Scleral Icterus (mild) Neck: Supple Lungs: Clear to Auscultation, Normal Respiratory Effort Cardiovascular: Regular Rate, Regular Rhythm GI/Abdominal Exam: Normal Bowel Sounds, Soft, Non-Tender, No Distention, No Mass (Male) Exam: Deferred Back Exam: Normal Inspection Extremities: Normal Inspection, No Pedal Edema Skin: Warm, Other (jaudice) Neurological: No New Focal Deficit Psy/Mental Status: Alert, Normal Affect, Normal Mood - Problem List & Annotations (1) Elevated liver enzymes SNOMED Code(s): 981576388 Code(s): R74.8 - ABNORMAL LEVELS OF OTHER SERUM ENZYMES Status: Acute (2) Sepsis SNOMED Code(s): 36210398 Code(s): A41.9 - SEPSIS, UNSPECIFIED ORGANISM Status: Acute - Problem List Review Problem List Initiated/Reviewed/Updated: Yes - Plan Plan:: history Mr Marquez is a an 88-year-old gentleman who was seen/evaluated/admitted from Dr Feng from [facility] due to concerns of sepsis. He had came in c/o severe shaking and elevated temperature. He does have a history of sepsis with E. coli bacteremia in March 2017 in which he had acute cholecystitis and cholelithiasis. On admission he did report some pulmonary phlgem, dark urine and some abd pain. He was admitted for IV antibiotics and further work-up Pertinent outpatient labs T 100.4 white count 5.4 neutrophils 78% T.Bilili 7.1 Alkaline phos 303 ALT 98 AST 47 Lactic Acid 4.2 before hydration UA: Bright orange, slightly cloudy large bilirubin, trace of blood, negative bacteria/leuko abdominal CT, mild intra-and extrahepatic biliary duct dilation, no obstructing stone, large hiatal hernia Hospital course: Patient afebrile since admit No signs of shock with stable BP WBC improved from 10.39 to 5.44 today Electrolytes stable T. Bili improved from 8.3 to 3.7 Direct bilirubin done today and critically elevated at 2.9. No prior comparison value. Given improvement in total bilirubin, this is likely trending down. Will recheck tomorrow for comparison AST 32 ALT 58 Alkaline phosphatase 220. BC: BOTH anaerobic/aerobic preliminary gr neg rods Repeat Lactic acid normal primary hospital problems Sepsis/bacteremia without septic shock- Elevated liver function- downtrending noted. Will recheck hepatic function panel tomorrow to trend Direct bilirubin levels. Chronic conditions: #Trigeminal Neuralgia- on Carbamazepine #Vitamin B12 deficiency- on supplemental Vitamin B12 #Dyspepsia- on Omeprazole. Overall plan/disposition --monitor for signs of septic shock, hemodynamic instability, fever jaundice more abdominal pain. --Repeat labs in AM. --Since anaerobic gram-negative rods continue on Zoysn. --Will SL IV fluids today. Ensure adequate PO intake. Up ambulating in the halls today. re-evaluate on rounds tomorrow.
[2019-01-19] MEDS: Piperacillin/Tazobactam/Dext 3.375 GM in Premix Bag 1 BAG IV SCH ×4 (02:35→19:54)
[2019-01-19] MEDS: Cyanocobalamin (Vitamin B12) 500 MCG Tab PO SCH (08:00)
[2019-01-19] MEDS: carBAMazepine 200 MG Tab PO SCH ×2 (08:00→20:00)
[2019-01-19] MEDS: Fluticasone Propionate Nasal Spray 16 GM Bottle NAS SCH ×2 (08:00→20:00)
[2019-01-19 08:19] LABS: ANION GAP 12.9 mmol/L (5-15); CHLORIDE,CL 104 mmol/L (98-115); SODIUM,NA 139 mmol/L (136-145)
--- NOTE | 2019-01-19 10:05 | PCM.PN ---
- General Info Date of Service: 01/19/19 Functional Status: Reports: Pain Controlled, Tolerating Diet, Ambulating - Review of Systems General: Denies: Fever, Weakness, Fatigue HEENT: Reports: No Symptoms Pulmonary: Reports: No Symptoms Cardiovascular: Reports: No Symptoms Gastrointestinal: Reports: No Symptoms Genitourinary: Reports: No Symptoms Musculoskeletal: Reports: No Symptoms Skin: Reports: Jaundice (slight jaundice improving) Neurological: Reports: No Symptoms Psychiatric: Reports: No Symptoms - Patient Data Vitals - Most Recent: Last Vital Signs Temp 98.4 F 01/19/19 07:00 Pulse 72 01/19/19 08:45 Resp 20 01/19/19 07:00 BP 138/73 01/19/19 07:00 Pulse Ox 97 01/19/19 08:45 Weight - Most Recent: 177 lb 3 oz I&O - Last 24 Hours: Intake & Output 01/18/19 01/19/19 01/19/19 22:59 06:59 14:59 Intake Total 559 175 Output Total 1200 1200 Balance -641 1025 Lab Results Last 24 Hours: Laboratory Results - last 24 hr 01/18/19 01/18/19 01/19/19 Range/Units 10:45 10:45 07:10 WBC 5.44 5.49 (5.00-10.00) 10^3/uL RBC 4.05 L 4.07 L (4.50-6.00) 10^6/uL Hgb 12.4 L 12.3 L (13.0-17.0) g/dL Hct 36.7 L 36.9 L (40.0-52.0) % MCV 90.6 90.7 (82.0-92.0) fL MCH 30.6 30.2 (27.0-31.0) pg MCHC 33.8 33.3 (32.0-36.0) g/dL RDW 13.9 13.9 (11.5-14.5) % Plt Count 157 172 (150-400) 10^3/uL MPV 9.4 9.7 (7.4-10.4) fL Immature Gran % (Auto) 0.7 0.5 (0.0-5.0) % Neut % (Auto) 72.4 H 69.7 (50.0-70.0) % Lymph % (Auto) 13.8 L 15.7 L (20.0-40.0) % [place] % (Auto) 8.6 H 7.7 (2.0-8.0) % Eos % (Auto) 3.9 H 5.3 H (1.0-3.0) % Baso % (Auto) 0.6 1.1 H (0.0-1.0) % Immature Gran # (Auto) 0.04 0.03 (0.00-0.50) 10^3/uL Neut # (Auto) 3.94 3.83 (2.50-7.00) 10^3/uL Lymph # (Auto) 0.75 L 0.86 L (1.00-4.00) 10^3/uL [place] # (Auto) 0.47 0.42 (0.10-0.80) 10^3/uL Eos # (Auto) 0.21 0.29 (0.10-0.30) 10^3/uL Baso # (Auto) 0.03 0.06 (0.00-0.10) 10^3/uL Sodium 140 (136-145) mmol/L Potassium 3.8 (3.3-5.3) mmol/L Chloride 105 (98-115) mmol/L Carbon Dioxide 21.8 (21.0-32.0) mmol/L Anion Gap 17.0 H (5-15) mmol/L BUN 15 (6-25) mg/dL Creatinine 0.90 (0.51-1.17) mg/dL Est Cr Clr Drug Dosing 54.89 mL/min Estimated GFR (MDRD) > 60 mL/min Glucose 133 H (75 - 99) mg/dL Calcium 8.4 L (8.7-10.3) mg/dL Total Bilirubin 3.7 H (0.2-1.0) mg/dL Direct Bilirubin 2.9 H* (0.0-0.2) mg/dL Indirect Bilirubin 0.8 mg/dL AST 32 (15-37) U/L ALT 58 (12-78) U/L Alkaline Phosphatase 220 H (46-116) IU/L Total Protein 6.1 L (6.4-8.2) g/dL Albumin 2.57 L (3.00-4.80) g/dL Globulin 3.53 Albumin/Globulin Ratio 0.72 01/19/19 Range/Units 07:10 WBC (5.00-10.00) 10^3/uL RBC (4.50-6.00) 10^6/uL Hgb (13.0-17.0) g/dL Hct (40.0-52.0) % MCV (82.0-92.0) fL MCH (27.0-31.0) pg MCHC (32.0-36.0) g/dL RDW (11.5-14.5) % Plt Count (150-400) 10^3/uL MPV (7.4-10.4) fL Immature Gran % (Auto) (0.0-5.0) % Neut % (Auto) (50.0-70.0) % Lymph % (Auto) (20.0-40.0) % [place] % (Auto) (2.0-8.0) % Eos % (Auto) (1.0-3.0) % Baso % (Auto) (0.0-1.0) % Immature Gran # (Auto) (0.00-0.50) 10^3/uL Neut # (Auto) (2.50-7.00) 10^3/uL Lymph # (Auto) (1.00-4.00) 10^3/uL [place] # (Auto) (0.10-0.80) 10^3/uL Eos # (Auto) (0.10-0.30) 10^3/uL Baso # (Auto) (0.00-0.10) 10^3/uL Sodium 139 (136-145) mmol/L Potassium 3.8 (3.3-5.3) mmol/L Chloride 104 (98-115) mmol/L Carbon Dioxide 25.9 (21.0-32.0) mmol/L Anion Gap 12.9 (5-15) mmol/L BUN 15 (6-25) mg/dL Creatinine 1.05 (0.51-1.17) mg/dL Est Cr Clr Drug Dosing 47.05 mL/min Estimated GFR (MDRD) > 60 mL/min Glucose 98 (75 - 99) mg/dL Calcium 8.8 (8.7-10.3) mg/dL Total Bilirubin 3.2 H (0.2-1.0) mg/dL Direct Bilirubin 2.3 H* (0.0-0.2) mg/dL Indirect Bilirubin 0.9 mg/dL AST 32 (15-37) U/L ALT 50 (12-78) U/L Alkaline Phosphatase 193 H (46-116) IU/L Total Protein 6.2 L (6.4-8.2) g/dL Albumin 2.35 L (3.00-4.80) g/dL Globulin 3.85 Albumin/Globulin Ratio 0.61 Sammy Results Last 24 Hours: Microbiology 01/14/19 17:35 Bacterial Identification - Final Blood - Arm, Left Escherichia Coli 01/14/19 19:10 Bacterial Identification - Preliminary Blood - Arm, Right Gram Negative Rods Gram Negative Rods#2 Med Orders - Current: Current Medications Acetaminophen (Tylenol) 650 mg PO Q4H PRN PRN Reason: Pain (moderate 4-6) Carbamazepine (Tegretol Tab) 200 mg PO BID [facility] Last Admin: 01/19/19 08:00 Dose: 200 mg Cyanocobalamin (Vitamin B12) 1,000 mcg PO DAILY [facility] Last Admin: 01/19/19 08:00 Dose: 1,000 mcg Fluticasone Propionate (Flonase) 0 gm EVER BID [facility] Last Admin: 01/19/19 08:00 Dose: 1 spray Piperacillin/Tazobactam/ (Dextrose 3.375 gm/ Premix) 50 mls @ 100 mls/hr IV Q6H [facility] Last Admin: 01/19/19 07:59 Dose: 100 mls/hr Sodium Chloride (Saline Flush) 10 ml FLUSH Q8HR PRN PRN Reason: keep vein open Last Admin: 01/15/19 21:04 Dose: 10 ml Discontinued Medications Carbamazepine (Tegretol Tab) 200 mg PO ONETIME ONE Stop: 01/14/19 19:10 Last Admin: 01/14/19 21:57 Dose: 200 mg Fentanyl (Sublimaze) 25 mcg IVPUSH ONETIME ONE Stop: 01/14/19 19:01 Last Admin: 01/14/19 19:33 Dose: 25 mcg Sodium Chloride (Normal Saline) 1,000 mls @ 200 mls/hr IV .BOLUS ONE Stop: 01/14/19 21:59 Last Admin: 01/14/19 20:10 Dose: Not Given Vancomycin HCl 1 gm/ Sodium (Chloride) 250 mls @ 167 mls/hr IV Q24H [facility] Last Admin: 01/14/19 18:36 Dose: 167 mls/hr Sodium Chloride (Normal Saline) 50 mls @ 200 mls/hr IV ASDIRECTED ONE Stop: 01/14/19 17:59 Last Admin: 01/14/19 18:43 Dose: 200 mls/hr Piperacillin Sod/Tazobactam (Sod 3.375 gm/ Sodium Chloride) 100 mls @ 30 mls/ hr IV Q6H [facility] Last Admin: 01/14/19 20:42 Dose: Not Given Sodium Chloride (Normal Saline) 500 mls @ 500 mls/hr IV ASDIRECTED [facility] Last Admin: 01/14/19 19:35 Dose: 500 mls/hr Sodium Chloride (Normal Saline) 1,000 mls @ 100 mls/hr IV CONTINUOUS [facility] Sodium Chloride (Normal Saline) 1,000 mls @ 100 mls/hr IV ASDIRECTED ONE Stop: 01/15/19 05:14 Last Admin: 01/15/19 00:00 Dose: 100 mls/hr Piperacillin Sod/Tazobactam (Sod 3.375 gm/ Sodium Chloride) 100 mls @ 200 mls/ hr IV ONETIME ONE Stop: 01/14/19 21:14 Piperacillin Sod/Tazobactam (Sod 3.375 gm/ Sodium Chloride) 100 mls @ 30 mls/ hr IV Q6H [facility] Vancomycin HCl 1.25 gm/ Sodium (Chloride) 250 mls @ 166.667 mls/hr IV Q24H [facility] Last Admin: 01/15/19 21:04 Dose: 166.667 mls/hr Sodium Chloride (Normal Saline) 1,000 mls @ 100 mls/hr IV ASDIRECTED [facility] Last Admin: 01/15/19 23:39 Dose: 100 mls/hr Sodium Chloride (Normal Saline) 1,000 mls @ 75 mls/hr IV ASDIRECTED [facility] Last Admin: 01/18/19 06:48 Dose: 75 mls/hr Iopamidol (Isovue-370 (76%)) 75 ml IVPUSH ONETIME ONE Stop: 01/14/19 17:44 Last Admin: 01/14/19 18:43 Dose: 75 ml Vancomycin HCl (Pharmacy To Dose - Vancomycin) 1 dose .XX ASDIRECTED [facility] Vancomycin HCl (Vancomycin) 0.5 gm IV ONETIME ONE Stop: 01/14/19 19:31 Last Admin: 01/14/19 21:20 Dose: Not Given Vancomycin HCl (Vancomycin) 0.5 gm IV ONETIME ONE Stop: 01/14/19 20:16 Last Admin: 01/14/19 21:44 Dose: 0.5 gm - Exam Quality Assessment: No: Supplemental Oxygen General: Alert, Oriented HEENT: No: Scleral Icterus Neck: Supple Lungs: Clear to Auscultation, Normal Respiratory Effort Cardiovascular: Regular Rate, Regular Rhythm GI/Abdominal Exam: No: Distended (Male) Exam: Deferred Back Exam: No: CVA Tenderness (L), CVA Tenderness (R) Extremities: No Pedal Edema Peripheral Pulses: 2+: Radial (R), Femoral (L) Skin: Other (slight jaundice improving) Neurological: Normal Speech, Normal Tone Psy/Mental Status: Alert, Normal Affect, Normal Mood - Problem List Review Problem List Initiated/Reviewed/Updated: Yes - Plan Plan:: history Mr Marquez is a an 88-year-old gentleman who was seen/evaluated/admitted from Dr Feng from [facility] due to concerns of sepsis. He had came in c/o severe shaking and elevated temperature. He does have a history of sepsis with E. coli bacteremia in March 2017 in which he had acute cholecystitis and cholelithiasis. On admission he did report some pulmonary phlgem, dark urine and some abd pain. He was admitted for IV antibiotics and further work-up Pertinent outpatient labs T 100.4 white count 5.4 neutrophils 78% T.Bilili 7.1 Alkaline phos 303 ALT 98 AST 47 Lactic Acid 4.2 before hydration UA: Bright orange, slightly cloudy large bilirubin, trace of blood, negative bacteria/leuko abdominal CT, mild intra-and extrahepatic biliary duct dilation, no obstructing stone, large hiatal hernia Hospital course: Patient afebrile since admit No signs of shock with stable BP WBC improved from 10.39 to 5.4 today Electrolytes stable T. Bili improved from 8.3 to 3.2 Direct bilirubin trending down at 2.3 AST 32 ALT 50, trending down Alkaline phosphatase 193, trending down BC: BOTH anaerobic/aerobic preliminary gr neg rods Repeat Lactic acid normal primary hospital problems Sepsis/bacteremia without septic shock- Elevated liver function- downtrending noted. Chronic conditions: #Trigeminal Neuralgia- on Carbamazepine #Vitamin B12 deficiency- on supplemental Vitamin B12 #Dyspepsia- on Omeprazole. Overall plan/disposition --one-time dose methelprednisone to "cool" down biliary tree. --Will d/c on by mouth antibiotics and will titrate down to lower dose over time --monitor for signs of septic shock, hemodynamic instability, fever jaundice more abdominal pain. --Since anaerobic gram-negative rods continue on Zoysn. --Will SL IV fluids today. Ensure adequate PO intake. Up ambulating in the halls today. anticipate discharge tomorrow.
[2019-01-19] MEDS ORDERED: methylPREDNISolone Sodium Succinate 125 MG/2 ML SDV IVPUSH ONE (10:44)
[2019-01-20] MEDS: Sodium Chloride 0.9% 10 ML Syringe FLUSH PRN ×2 (01:58→08:01)
[2019-01-20] MEDS: Piperacillin/Tazobactam/Dext 3.375 GM in Premix Bag 1 BAG IV SCH ×2 (01:59→08:00)
[2019-01-20 06:18] VITALS: BP 128/66; PULSE 63
[2019-01-20] MEDS: Fluticasone Propionate Nasal Spray 16 GM Bottle NAS SCH (08:00)
[2019-01-20] MEDS: Cyanocobalamin (Vitamin B12) 500 MCG Tab PO SCH (08:00)
[2019-01-20] MEDS: carBAMazepine 200 MG Tab PO SCH (08:01)
--- NOTE | 2019-01-20 09:16 | PCM.DCSUM1 ---
Discharge Summary - Hospital Course Diagnosis: Stroke: No - Discharge Data Discharge Date: 01/20/19 Discharge Disposition: Home, Self-Care 01 Condition: Good - Patient Summary/Data Consults: Consultations 01/15/19 12:58 Consult to Fence Supervisor [CONS] Routine - Patient Instructions Diet: Usual Diet as Tolerated Activity: As Tolerated Driving: May Drive Today Showering/Bathing: May Shower Notify Provider of: Fever, Increased Pain, Nausea and/or Vomiting Other/Special Instructions: report any discoloration of skin or yellow eyes. stay hydrated - Discharge Plan *PRESCRIPTION DRUG MONITORING PROGRAM REVIEWED*: Not Applicable *COPY OF PRESCRIPTION DRUG MONITORING REPORT IN PATIENT BIJU: Not Applicable Prescriptions/Med Rec: levoFLOXacin [Levaquin] 250 mg PO DAILY #2 tab Home Medications: Home Meds Aspirin 81 mg PO DAILY 03/08/17 [History] Acetaminophen [Tylenol] 650 mg PO Q4H PRN tablet 03/18/17 [Rx] carBAMazepine [Carbamazepine] 200 mg PO BID #60 tablet 03/18/17 [Rx] Cyanocobalamin (Vitamin B-12) [Vitamin B-12] 1,000 mcg PO DAILY 01/14/19 [ History] Diclofenac Sodium [Voltaren] 75 mg PO BID PRN 01/14/19 [History] Fluticasone Propionate [Flonase] 50 mcg INH BID 01/14/19 [History] Omeprazole 20 mg PO DAILY 01/14/19 [History] Triamcinolone Acetonide [Kenalog 0.1% Crm] 1 applic TOP BID PRN 01/14/19 [ History] levoFLOXacin [Levaquin] 250 mg PO DAILY #2 tab 01/20/19 [Rx] Referrals: Mikey Vasquez, [facility] [Nurse Practitioner] - (or Dr Feng THIS week Saturday) - Discharge Summary/Plan Comment DC Time >30 min.: Yes Discharge Summary/Plan Comment: Final diagnosis Sepsis/bacteremia without septic shock- Elevated liver function, history 88-year-old gentleman who was seen/evaluated/admitted by Dr Feng from [facility] due to sepsis. He had came in c/o severe shaking and elevated temperature highly suspicious for infection and sepsis as the patient does have a hx of sepsis with E. coli bacteremia in March 2017 in which he had acute cholecystitis and cholelithiasis. On admission he did report some pulmonary phlgem, dark urine and some abd pain. He was admitted for IV antibiotics and further work-up. Hospital course: Patient afebrile since admit, No signs of shock with stable BP,WBC improved from 10.39 to 5.4 today, Electrolytes stable T. Bili continue to trend down, direct bili improved, AST ALT trended to normal however ALK PHOS vaccilated and was 198 on DC. he was jaundiced however this improved greatlly on discharge. He was given antibiotics. His abdominal CT, mild intra-and extrahepatic biliary duct dilation, no obstructing stone, large hiatal hernia. aerobic blood and anaerobic blood culture positive for gram- negative rods with Escheichia coli, along with Klebsiella pneumonia medications changes upon DC Levofloxacin daily 2 days 250 mg disposition Patient will be discharge with close follow-up, labs Saturday. He may need long- term antibioti low-dose. - General Info Functional Status: Reports: Pain Controlled - Review of Systems General: Reports: No Symptoms Cardiovascular: Reports: No Symptoms Gastrointestinal: Reports: No Symptoms - Patient Data Vitals - Most Recent: Last Vital Signs Temp 98.4 F 01/20/19 06:18 Pulse 63 01/20/19 06:18 Resp 18 01/20/19 06:18 BP 128/66 01/20/19 06:18 Pulse Ox 92 L 01/20/19 06:18 Weight - Most Recent: 177 lb 3 oz I&O - Last 24 hours: Intake & Output 01/19/19 01/20/19 01/20/19 22:59 06:59 14:59 Intake Total 425 75 Balance 425 75 Lab Results - Last 24 hrs: Laboratory Results - last 24 hr 01/20/19 Range/Units 07:10 Total Bilirubin 2.8 H (0.2-1.0) mg/dL Direct Bilirubin 2.0 H* (0.0-0.2) mg/dL Indirect Bilirubin 0.8 mg/dL AST 39 H (15-37) U/L ALT 61 (12-78) U/L Alkaline Phosphatase 198 H (46-116) IU/L Total Protein 6.9 (6.4-8.2) g/dL Albumin 2.68 L (3.00-4.80) g/dL Globulin 4.22 Albumin/Globulin Ratio 0.63 DINORA Results - Last 24 hrs: Microbiology 01/14/19 19:10 Bacterial Identification - Final Blood - Arm, Right Escherichia Coli Klebsiella Pneumonia Ss Pneumo Med Orders - Current: Current Medications Acetaminophen (Tylenol) 650 mg PO Q4H PRN PRN Reason: Pain (moderate 4-6) Carbamazepine (Tegretol Tab) 200 mg PO BID [facility] Last Admin: 01/20/19 08:01 Dose: 200 mg Cyanocobalamin (Vitamin B12) 1,000 mcg PO DAILY [facility] Last Admin: 01/20/19 08:00 Dose: 1,000 mcg Fluticasone Propionate (Flonase) 0 gm EVER BID [facility] Last Admin: 01/20/19 08:00 Dose: 1 spray Piperacillin/Tazobactam/ (Dextrose 3.375 gm/ Premix) 50 mls @ 100 mls/hr IV Q6H [facility] Last Admin: 01/20/19 08:00 Dose: 100 mls/hr Sodium Chloride (Saline Flush) 10 ml FLUSH Q8HR PRN PRN Reason: keep vein open Last Admin: 01/20/19 08:01 Dose: 10 ml Discontinued Medications Carbamazepine (Tegretol Tab) 200 mg PO ONETIME ONE Stop: 01/14/19 19:10 Last Admin: 01/14/19 21:57 Dose: 200 mg Fentanyl (Sublimaze) 25 mcg IVPUSH ONETIME ONE Stop: 01/14/19 19:01 Last Admin: 01/14/19 19:33 Dose: 25 mcg Sodium Chloride (Normal Saline) 1,000 mls @ 200 mls/hr IV .BOLUS ONE Stop: 01/14/19 21:59 Last Admin: 01/14/19 20:10 Dose: Not Given Vancomycin HCl 1 gm/ Sodium (Chloride) 250 mls @ 167 mls/hr IV Q24H [facility] Last Admin: 01/14/19 18:36 Dose: 167 mls/hr Sodium Chloride (Normal Saline) 50 mls @ 200 mls/hr IV ASDIRECTED ONE Stop: 01/14/19 17:59 Last Admin: 01/14/19 18:43 Dose: 200 mls/hr Piperacillin Sod/Tazobactam (Sod 3.375 gm/ Sodium Chloride) 100 mls @ 30 mls/ hr IV Q6H [facility] Last Admin: 01/14/19 20:42 Dose: Not Given Sodium Chloride (Normal Saline) 500 mls @ 500 mls/hr IV ASDIRECTED [facility] Last Admin: 01/14/19 19:35 Dose: 500 mls/hr Sodium Chloride (Normal Saline) 1,000 mls @ 100 mls/hr IV CONTINUOUS [facility] Sodium Chloride (Normal Saline) 1,000 mls @ 100 mls/hr IV ASDIRECTED ONE Stop: 01/15/19 05:14 Last Admin: 01/15/19 00:00 Dose: 100 mls/hr Piperacillin Sod/Tazobactam (Sod 3.375 gm/ Sodium Chloride) 100 mls @ 200 mls/ hr IV ONETIME ONE Stop: 01/14/19 21:14 Piperacillin Sod/Tazobactam (Sod 3.375 gm/ Sodium Chloride) 100 mls @ 30 mls/ hr IV Q6H [facility] Vancomycin HCl 1.25 gm/ Sodium (Chloride) 250 mls @ 166.667 mls/hr IV Q24H [facility] Last Admin: 01/15/19 21:04 Dose: 166.667 mls/hr Sodium Chloride (Normal Saline) 1,000 mls @ 100 mls/hr IV ASDIRECTED [facility] Last Admin: 01/15/19 23:39 Dose: 100 mls/hr Sodium Chloride (Normal Saline) 1,000 mls @ 75 mls/hr IV ASDIRECTED [facility] Last Admin: 01/18/19 06:48 Dose: 75 mls/hr Iopamidol (Isovue-370 (76%)) 75 ml IVPUSH ONETIME ONE Stop: 01/14/19 17:44 Last Admin: 01/14/19 18:43 Dose: 75 ml Methylprednisolone Sodium Succinate (Solu-Medrol) 80 mg IVPUSH ONETIME ONE Stop: 01/19/19 10:45 Last Admin: 01/19/19 11:00 Dose: 80 mg Vancomycin HCl (Pharmacy To Dose - Vancomycin) 1 dose .XX ASDIRECTED [facility] Vancomycin HCl (Vancomycin) 0.5 gm IV ONETIME ONE Stop: 01/14/19 19:31 Last Admin: 01/14/19 21:20 Dose: Not Given Vancomycin HCl (Vancomycin) 0.5 gm IV ONETIME ONE Stop: 01/14/19 20:16 Last Admin: 01/14/19 21:44 Dose: 0.5 gm - Exam General: Reports: Alert, Oriented HEENT: Denies: Scleral Icterus Lungs: Reports: Clear to Auscultation, Normal Respiratory Effort Cardiovascular: Reports: Regular Rate, Regular Rhythm GI/Abdominal Exam: No Distention
== END 2019-01-20 10:15 | disposition home or self-care (01) | DRG 872 ==
LOC: KA.MS 16:47
PROVIDERS: ADMIT Family Medicine; ATTEND Family Medicine
DX: A41.9 Sepsis, unspecified organism (principal); R17 Unspecified jaundice; R79.89 Other specified abnormal findings of blood chemistry; K44.9 Diaphragmatic hernia without obstruction or gangrene; E78.00 Pure hypercholesterolemia, unspecified; G50.0 Trigeminal neuralgia; E53.8 Deficiency of other specified B group vitamins; Z79.82 Long term (current) use of aspirin; Z88.0 Allergy status to penicillin; Z88.1 Allergy status to other antibiotic agents; Z90.49 Acquired absence of other specified parts of digestive tract; Z87.891 Personal history of nicotine dependence
CPT/HCPCS: 36415; 74177; 80048; 80053; 80076; 83605; 85025; 87040; 87077; 87186; A9270-GY; J2543; J2930; J3010; J3370; J7030; J7040; J7050; Q9967

== ENCOUNTER 2019-04-04 14:28 | Observation (INO) | payer MEDICARE, BC ==
[2019-04-04] MEDS ORDERED: Sodium Chloride 0.9% 1,000 ML IV ONE (15:06)
[2019-04-04] MEDS ORDERED: Sodium Chloride 0.9% 10 ML Syringe FLUSH PRN (15:06)
--- NOTE | 2019-04-04 15:12 | EDM.PDOC ---
ED HPI GENERAL MEDICAL PROBLEM - General Chief Complaint: General Stated Complaint: vomiting, dizziness Time Seen by Provider: 04/04/19 15:05 Source of Information: Reports: Patient, Family History Limitations: Reports: No Limitations - History of Present Illness INITIAL COMMENTS - FREE TEXT/NARRATIVE: Patient is an 89-year-old gentleman who presents to the emergency department via private vehicle this afternoon with a complaint of dizziness. states approximately 11 a.m. this morning while sitting at the table. He felt dizzy and weak so proceeded to the bathroom and had an episode of vomiting. Patient relaxed on the floor for several minutes until he felt better and nausea resolved. However, dizziness did not resolve. decided to present to the emergency department. Patient states that he has had intermittent upper respiratory symptoms for the last 2 weeks. Patient denies headache, fever, chest pain, shortness of breath, bowel changes, abdominal pain, out of country travel, or syncopal episode. Onset: Today Onset Date: 04/04/19 Onset Time: 11:00 Duration: Hour(s): Quality: Reports: Other (Dizziness) Improves with: Reports: Other (Spontaneously) Worsens with: Reports: None Context: Denies: Activity, Exercise, Lifting, Sick Contact, Trauma Associated Symptoms: Reports: Cough, Nausea/Vomiting, Weakness. Denies: Chest Pain, Fever/Chills, Headaches, Shortness of Breath, Syncope - Related Data Allergies Allergy/AdvReac Type Severity Reaction Status Date / Time doxycycline Allergy Cannot Verified 04/04/19 15:06 Remember erythromycin base Allergy Cannot Verified 04/04/19 15:06 Remember Penicillins Allergy Rash Verified 04/04/19 15:06 sulfamethoxazole Allergy Cannot Verified 04/04/19 15:06 [From Bactrim] Remember trimethoprim [From Bactrim] Allergy Cannot Verified 04/04/19 15:06 Remember Home Meds: Home Meds Aspirin 81 mg PO DAILY 03/08/17 [History] carBAMazepine [Carbamazepine] 200 mg PO BID #60 tablet 03/18/17 [Rx] Cyanocobalamin (Vitamin B12) [Vitamin B12] 1,000 mcg PO DAILY 04/04/19 [History] Past Medical History HEENT History: Reports: Hard of Hearing, Impaired Vision Cardiovascular History: Reports: Afib, High Cholesterol Respiratory History: Reports: Other (See Below) Other Respiratory History: Resp failure r/t sepsis 02/07. 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 Did have and E.Coli infection after gall bladder removed 02/07 - Past Surgical History Head Surgeries/Procedures: Reports: None HEENT Surgical History: Reports: None Cardiovascular Surgical History: Reports: None Respiratory Surgical History: Reports: None GI Surgical History: Reports: Cholecystectomy, Hernia, Abdominal Endocrine Surgical History: Reports: None Neurological Surgical History: Reports: None Musculoskeletal Surgical History: Reports: None Dermatological Surgical History: Reports: Skin Biopsy, Other (See Below) Social & Family History - Family History Family Medical History: Noncontributory - Caffeine Use Caffeine Use: Reports: Coffee, Energy Drinks Other Caffeine Use: just a couple recently - Living Situation & Occupation Living situation: Reports: Occupation: Retired ED ROS GENERAL - Review of Systems Review Of Systems: ROS reveals no pertinent complaints other than HPI. Constitutional: Reports: No Symptoms HEENT: Reports: No Symptoms Respiratory: Reports: No Symptoms Cardiovascular: Reports: No Symptoms Endocrine: Reports: No Symptoms GI/Abdominal: Reports: Nausea, Vomiting : Reports: No Symptoms Musculoskeletal: Reports: No Symptoms Skin: Reports: No Symptoms Neurological: Reports: Dizziness, Weakness. Denies: Headache, Numbness, Paresthesia, Pre-Existing Deficit, Seizure, Syncope, Tingling, Trouble Speaking Psychiatric: Reports: No Symptoms Hematologic/Lymphatic: Reports: No Symptoms Immunologic: Reports: No Symptoms ED EXAM, GENERAL - Physical Exam Exam: See Below Exam Limited By: No Limitations General Appearance: Alert, WD/WN, No Apparent Distress Eye Exam: Bilateral Eye: Normal Inspection Ears: Normal External Exam, Normal Canal, Normal TMs Nose: Normal Inspection, Normal Mucosa, No Blood Throat/Mouth: Normal Inspection, Normal Oropharynx, No Airway Compromise Head: Atraumatic, Normocephalic Neck: Normal Inspection, Supple, Non-Tender, Full Range of Motion. No: Lymphadenopathy (L), Lymphadenopathy (R) Respiratory/Chest: No Respiratory Distress, Lungs Clear, Normal Breath Sounds, No Accessory Muscle Use, Chest Non-Tender Cardiovascular: Normal Peripheral Pulses, Regular Rate, Rhythm, No Murmur GI/Abdominal: Normal Bowel Sounds, Soft, Non-Tender, No Organomegaly, No Distention, No Abnormal Bruit, No Mass Back Exam: Normal Inspection. No: CVA Tenderness (L), CVA Tenderness (R) Extremities: Normal Inspection, No Pedal Edema Neurological: Alert, Oriented, CN II-XII Intact, Normal Cognition, No Motor/ Sensory Deficits Psychiatric: Normal Affect, Normal Mood Skin Exam: Warm, Dry, Intact, Normal Color, No Rash Lymphatic: No Adenopathy Course - Vital Signs Last Recorded V/S: Last Vital Signs Temp 97.4 F 04/04/19 14:28 Pulse 70 04/04/19 14:28 Resp 18 04/04/19 14:28 BP 146/86 H 04/04/19 14:28 Pulse Ox 86 L 04/04/19 14:28 - Orders/Labs/Meds Orders: Active Orders 24 hr Category Date Time Status EKG Documentation Completion [RC] ASDIRECTED Care 04/04/19 14:58 Active Peripheral IV Care [RC] . DIRECTED Care 04/04/19 15:06 Active Sodium Chloride 0.9% [Saline Flush] Med 04/04/19 15:06 Active 10 ml FLUSH Q8HR PRN Peripheral IV Insertion Adult [OM.PC] Routine Oth 04/04/19 15:06 Ordered EKG 12 Lead [EK] Routine Ther 04/04/19 14:58 Ordered Medication Orders Sodium Chloride (Saline Flush) 10 ml FLUSH Q8HR PRN PRN Reason: keep vein open Labs: Laboratory Tests 04/04/19 04/04/19 04/04/19 Range/Units 14:59 14:59 14:59 WBC 7.82 (5.00-10.00) 10^3/uL RBC 4.62 (4.50-6.00) 10^6/uL Hgb 14.3 D (13.0-17.0) g/dL Hct 40.6 (40.0-52.0) % MCV 87.9 (82.0-92.0) fL MCH 31.0 (27.0-31.0) pg MCHC 35.2 (32.0-36.0) g/dL RDW 12.9 (11.5-14.5) % Plt Count 160 (150-400) 10^3/uL MPV 9.7 (7.4-10.4) fL Immature Gran % (Auto) 0.4 (0.0-5.0) % Neut % (Auto) 85.9 H (50.0-70.0) % Lymph % (Auto) 7.3 L (20.0-40.0) % [place] % (Auto) 5.2 (2.0-8.0) % Eos % (Auto) 0.9 L (1.0-3.0) % Baso % (Auto) 0.3 (0.0-1.0) % Immature Gran # (Auto) 0.03 (0.00-0.50) 10^3/uL Neut # (Auto) 6.72 (2.50-7.00) 10^3/uL Lymph # (Auto) 0.57 L (1.00-4.00) 10^3/uL [place] # (Auto) 0.41 (0.10-0.80) 10^3/uL Eos # (Auto) 0.07 L (0.10-0.30) 10^3/uL Baso # (Auto) 0.02 (0.00-0.10) 10^3/uL Sodium 130 L (136-145) mmol/L Potassium 5.1 (3.3-5.3) mmol/L Chloride 94 L (98-115) mmol/L Carbon Dioxide 24.3 (21.0-32.0) mmol/L Anion Gap 16.8 H (5-15) mmol/L BUN 19 (6-25) mg/dL Creatinine 0.88 (0.51-1.17) mg/dL Est Cr Clr Drug Dosing 52.28 mL/min Estimated GFR (MDRD) > 60 mL/min Glucose 142 H (75 - 99) mg/dL Calcium 8.9 (8.7-10.3) mg/dL Total Bilirubin 0.5 (0.2-1.0) mg/dL AST 37 (15-37) U/L ALT 22 (12-78) U/L Alkaline Phosphatase 96 (46-116) IU/L Troponin I 0.08 H* (0.00-0.070) ng/mL Total Protein 7.4 (6.4-8.2) g/dL Albumin 3.48 (3.00-4.80) g/dL Amylase 29 (25-125) U/L Lipase 105 (73-393) U/L Specimen Type Urine Color (YELLOW) Urine Appearance (CLEAR) Urine pH (5.0-9.0) Ur Specific [place] (1.005-1.030) Urine Protein (NEGATIVE) mg/dL Urine Glucose (UA) (NEGATIVE) mg/dL Urine Ketones (NEGATIVE) mg/dL Urine Occult Blood (NEGATIVE) Urine Nitrite (NEGATIVE) Urine Bilirubin (NEGATIVE) Urine Urobilinogen (0.2-1.0) E.U./dL Ur Leukocyte Esterase (NEGATIVE) Urine RBC (0-5) /HPF Urine WBC (0-5) /HPF Ur Epithelial Cells /LPF Urine Bacteria (NONE TO FEW) /HPF 04/04/19 Range/Units 15:37 WBC (5.00-10.00) 10^3/uL RBC (4.50-6.00) 10^6/uL Hgb (13.0-17.0) g/dL Hct (40.0-52.0) % MCV (82.0-92.0) fL MCH (27.0-31.0) pg MCHC (32.0-36.0) g/dL RDW (11.5-14.5) % Plt Count (150-400) 10^3/uL MPV (7.4-10.4) fL Immature Gran % (Auto) (0.0-5.0) % Neut % (Auto) (50.0-70.0) % Lymph % (Auto) (20.0-40.0) % [place] % (Auto) (2.0-8.0) % Eos % (Auto) (1.0-3.0) % Baso % (Auto) (0.0-1.0) % Immature Gran # (Auto) (0.00-0.50) 10^3/uL Neut # (Auto) (2.50-7.00) 10^3/uL Lymph # (Auto) (1.00-4.00) 10^3/uL [place] # (Auto) (0.10-0.80) 10^3/uL Eos # (Auto) (0.10-0.30) 10^3/uL Baso # (Auto) (0.00-0.10) 10^3/uL Sodium (136-145) mmol/L Potassium (3.3-5.3) mmol/L Chloride (98-115) mmol/L Carbon Dioxide (21.0-32.0) mmol/L Anion Gap (5-15) mmol/L BUN (6-25) mg/dL Creatinine (0.51-1.17) mg/dL Est Cr Clr Drug Dosing mL/min Estimated GFR (MDRD) mL/min Glucose (75 - 99) mg/dL Calcium (8.7-10.3) mg/dL Total Bilirubin (0.2-1.0) mg/dL AST (15-37) U/L ALT (12-78) U/L Alkaline Phosphatase (46-116) IU/L Troponin I (0.00-0.070) ng/mL Total Protein (6.4-8.2) g/dL Albumin (3.00-4.80) g/dL Amylase (25-125) U/L Lipase (73-393) U/L Specimen Type . Urine Color Yellow (YELLOW) Urine Appearance Clear (CLEAR) Urine pH 5.5 (5.0-9.0) Ur Specific [place] 1.020 (1.005-1.030) Urine Protein 30 H (NEGATIVE) mg/dL Urine Glucose (UA) Negative (NEGATIVE) mg/dL Urine Ketones 15 H (NEGATIVE) mg/dL Urine Occult Blood Trace-intact H (NEGATIVE) Urine Nitrite Negative (NEGATIVE) Urine Bilirubin Negative (NEGATIVE) Urine Urobilinogen 0.2 (0.2-1.0) E.U./dL Ur Leukocyte Esterase Negative (NEGATIVE) Urine RBC 0-5 (0-5) /HPF Urine WBC 0-5 (0-5) /HPF Ur Epithelial Cells Occasional /LPF Urine Bacteria Rare (NONE TO FEW) /HPF Meds: Medications Generic Name Dose Route Start Last Admin Trade Name Freq PRN Reason Stop Dose Admin Sodium Chloride 10 ml 04/04/19 15:06 Saline Flush FLUSH Q8HR PRN keep vein open Discontinued Medications Generic Name Dose Route Start Last Admin Trade Name Freq PRN Reason Stop Dose Admin Sodium Chloride 1,000 mls @ 999 mls/hr 04/04/19 15:06 Normal Saline IV 04/04/19 16:06 .BOLUS ONE Ondansetron HCl 4 mg 04/04/19 15:23 Zofran IVPUSH 04/04/19 15:24 ONETIME ONE - Radiology Interpretation Free Text/Narrative:: Chest x-ray shows no acute cardiopulmonary process - Re-Assessments/Exams Free Text/Narrative Re-Assessment/Exam: 04/04/19 16:27 Patient afebrile, vital signs stable, oxygen saturation 94% on 2 L nasal cannula. His and sons are at bedside. Patient states dizziness is better but not completely resolved. Patient denies chest pain or headache at this time. Discussed case with Sarina Alejandro provider who will admit patient for observation and follow. Departure - Departure Time of Disposition: 16:26 Disposition: Refer to Observation Condition: Fair Clinical Impression: Dizziness, Elevated troponin - Discharge Information Instructions: Dizziness, [id number] Forms: ED Department Discharge - My Orders Last 24 Hours: My Active Orders 04/04/19 14:58 EKG Documentation Completion [RC] ASDIRECTED EKG 12 Lead [EK] Routine 04/04/19 15:06 Peripheral IV Care [RC] . DIRECTED Sodium Chloride 0.9% [Saline Flush] 10 ml FLUSH Q8HR PRN Peripheral IV Insertion Adult [OM.PC] Routine - Assessment/Plan Last 24 Hours: My Active Orders 04/04/19 14:58 EKG Documentation Completion [RC] ASDIRECTED EKG 12 Lead [EK] Routine 04/04/19 15:06 Peripheral IV Care [RC] . DIRECTED Sodium Chloride 0.9% [Saline Flush] 10 ml FLUSH Q8HR PRN Peripheral IV Insertion Adult [OM.PC] Routine Assessment:: Dizziness Plan: Admit observation
[2019-04-04 15:23] LABS: ANION GAP 16.8 mmol/L (5-15); CHLORIDE,CL 94 mmol/L (98-115); SODIUM,NA 130 mmol/L (136-145)
[2019-04-04] MEDS ORDERED: Ondansetron 4 MG/2 ML SDV IVPUSH ONE (15:23)
--- NOTE | 2019-04-04 15:41 | CR ---
[id number] RAD/RAD Chest PA And Lateral EXAM: RAD Chest PA And Lateral CLINICAL DATA: COUGH COMPARISON: NO PREVIOUS SIMILAR EXAM IS AVAILABLE. 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 There is an incomplete inspiratory effort The cardiac silhouette is enlarged IMPRESSION: NO PNEUMONIA OR EDEMA Donald Kay MD 04/04/19 [id number] Thank you for allowing us to participate in the care of your patient.
[2019-04-04] MEDS ORDERED: Ondansetron 4 MG/2 ML SDV IV PRN (17:06)
[2019-04-04] MEDS: Sodium Chloride 0.9% 1,000 ML IV SCH (20:04)
[2019-04-04] MEDS: CARBAMAZEPINE 200 MG PO SCH (20:21)
[2019-04-04] MEDS ORDERED: Cyanocobalamin (Vitamin B12) 500 MCG Tab PO SCH (21:00)
[2019-04-04] MEDS ORDERED: CARBAMAZEPINE 200 MG PO SCH (21:00)
[2019-04-05] MEDS: Sodium Chloride 0.9% 1,000 ML IV SCH (05:50)
[2019-04-05] MEDS ORDERED: Aspirin 81 MG Tab.Chew PO SCH (09:00)
[2019-04-05 09:20] LABS: CHLORIDE,CL 100 mmol/L (98-115); SODIUM,NA 135 mmol/L (136-145)
[2019-04-05] MEDS: CARBAMAZEPINE 200 MG PO SCH (09:39)
--- NOTE | 2019-04-05 10:35 | PCM.HP.2 ---
H&P History of Present Illness - General Date of Service: 04/05/19 Admit Problem/Dx: Admission Diagnosis/Problem Admission Diagnosis/Problem Elevated troponin I level Source of Information: Patient, EMS Notes Reviewed, Old Records, RN Notes Reviewed - Related Data Allergies/Adverse Reactions: Allergies Allergy/AdvReac Type Severity Reaction Status Date / Time doxycycline Allergy Cannot Verified 04/04/19 15:06 Remember erythromycin base Allergy Cannot Verified 04/04/19 15:06 Remember Penicillins Allergy Rash Verified 04/04/19 15:06 sulfamethoxazole Allergy Cannot Verified 04/04/19 15:06 [From Bactrim] Remember trimethoprim [From Bactrim] Allergy Cannot Verified 04/04/19 15:06 Remember Home Medications: Home Meds Aspirin 81 mg PO DAILY 03/08/17 [History] carBAMazepine [Carbamazepine] 200 mg PO BID #60 tablet 03/18/17 [Rx] Cyanocobalamin (Vitamin B12) [Vitamin B12] 1,000 mcg PO DAILY 04/04/19 [History] Past Medical History HEENT History: Reports: Hard of Hearing, Impaired Vision Cardiovascular History: Reports: Afib, High Cholesterol Respiratory History: Reports: Other (See Below) Other Respiratory History: Resp failure r/t sepsis 02/07. 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 Did have and E.Coli infection after gall bladder removed 02/07 - Past Surgical History Head Surgeries/Procedures: Reports: None HEENT Surgical History: Reports: None Cardiovascular Surgical History: Reports: None Respiratory Surgical History: Reports: None GI Surgical History: Reports: Cholecystectomy, Hernia, Abdominal Endocrine Surgical History: Reports: None Neurological Surgical History: Reports: None Musculoskeletal Surgical History: Reports: None Dermatological Surgical History: Reports: Skin Biopsy, Other (See Below) Social & Family History - Family History Family Medical History: Noncontributory Endocrine/Metabolic: Reports: Diabetes, type II - Tobacco Use Smoking Status *Q: Former Smoker Used Tobacco, but Quit: Yes Month/Year Tobacco Last Used: 10 - Caffeine Use Caffeine Use: Reports: Coffee, Soda Other Caffeine Use: just a couple recently - Alcohol Use Days Per Week of Alcohol Use: 7 Number of Drinks Per Day: 1 Total Drinks Per Week: 7 - Recreational Drug Use Recreational Drug Use: No - Living Situation & Occupation Living situation: Reports: Occupation: Retired H&P Review of Systems - Review of Systems: General: Denies: Fever, Chills, Malaise, Weakness, Fatigue HEENT: Reports: Rhinitis, Post Nasal Drip. Denies: Headaches, Sinus Congestion , Sore Throat Pulmonary: Reports: Cough. Denies: Shortness of Breath, Wheezing, Sputum Cardiovascular: Denies: Chest Pain, Palpitations, Dyspnea on Exertion, Orthopnea , Edema, Lightheadedness Gastrointestinal: Denies: Abdominal Pain, Constipation, Diarrhea, Nausea, Vomiting Genitourinary: Reports: No Symptoms Musculoskeletal: Reports: No Symptoms Skin: Reports: No Symptoms Psychiatric: Reports: No Symptoms Neurological: Denies: Dizziness, Headache, Numbness, Tingling, Weakness, Change in Speech, Gait Disturbance Hematologic/Lymphatic: Reports: No Symptoms Exam - Vital Signs Vital Signs: Last Vital Signs Temp 98.5 F 04/05/19 05:56 Pulse 94 04/05/19 02:30 Resp 20 04/05/19 05:56 BP 96/58 L 04/05/19 05:56 Pulse Ox 90 L 04/05/19 02:30 Weight: 177 lb 9.6 oz - Exam General: Alert, Oriented, Cooperative HEENT: Conjunctiva Clear, EOMI, Pupils Equal, Pupils Reactive Neck: Supple, Trachea Midline. No: JVD Lungs: Clear to Auscultation Cardiovascular: Regular Rate, Regular Rhythm GI/Abdominal Exam: Normal Bowel Sounds, Soft, Non-Tender, No Distention Back Exam: Normal Inspection Extremities: Normal Inspection, Non-Tender, No Pedal Edema Skin: Warm, Dry, Intact Neurological: Cranial Nerves Intact Neuro Extensive - Mental Status: Alert, Oriented x3, Normal Mood/Affect, Normal Cognition Neuro Extensive - Motor, Sensory, Reflexes: Normal Gait Psychiatric: Alert - Patient Data Lab Results Last 24 hrs: Laboratory Results - last 24 hr 04/04/19 04/04/19 04/04/19 Range/Units 14:59 14:59 14:59 WBC 7.82 (5.00-10.00) 10^3/uL RBC 4.62 (4.50-6.00) 10^6/uL Hgb 14.3 D (13.0-17.0) g/dL Hct 40.6 (40.0-52.0) % MCV 87.9 (82.0-92.0) fL MCH 31.0 (27.0-31.0) pg MCHC 35.2 (32.0-36.0) g/dL RDW 12.9 (11.5-14.5) % Plt Count 160 (150-400) 10^3/uL MPV 9.7 (7.4-10.4) fL Immature Gran % (Auto) 0.4 (0.0-5.0) % Neut % (Auto) 85.9 H (50.0-70.0) % Lymph % (Auto) 7.3 L (20.0-40.0) % [place] % (Auto) 5.2 (2.0-8.0) % Eos % (Auto) 0.9 L (1.0-3.0) % Baso % (Auto) 0.3 (0.0-1.0) % Immature Gran # (Auto) 0.03 (0.00-0.50) 10^3/uL Neut # (Auto) 6.72 (2.50-7.00) 10^3/uL Lymph # (Auto) 0.57 L (1.00-4.00) 10^3/uL [place] # (Auto) 0.41 (0.10-0.80) 10^3/uL Eos # (Auto) 0.07 L (0.10-0.30) 10^3/uL Baso # (Auto) 0.02 (0.00-0.10) 10^3/uL Sodium 130 L (136-145) mmol/L Potassium 5.1 (3.3-5.3) mmol/L Chloride 94 L (98-115) mmol/L Carbon Dioxide 24.3 (21.0-32.0) mmol/L Anion Gap 16.8 H (5-15) mmol/L BUN 19 (6-25) mg/dL Creatinine 0.88 (0.51-1.17) mg/dL Est Cr Clr Drug Dosing 52.28 mL/min Estimated GFR (MDRD) > 60 mL/min Glucose 142 H (75 - 99) mg/dL Calcium 8.9 (8.7-10.3) mg/dL Total Bilirubin 0.5 (0.2-1.0) mg/dL AST 37 (15-37) U/L ALT 22 (12-78) U/L Alkaline Phosphatase 96 (46-116) IU/L Troponin I 0.08 H* (0.00-0.070) ng/mL Total Protein 7.4 (6.4-8.2) g/dL Albumin 3.48 (3.00-4.80) g/dL Amylase 29 (25-125) U/L Lipase 105 (73-393) U/L Specimen Type Urine Color (YELLOW) Urine Appearance (CLEAR) Urine pH (5.0-9.0) Ur Specific [place] (1.005-1.030) Urine Protein (NEGATIVE) mg/dL Urine Glucose (UA) (NEGATIVE) mg/dL Urine Ketones (NEGATIVE) mg/dL Urine Occult Blood (NEGATIVE) Urine Nitrite (NEGATIVE) Urine Bilirubin (NEGATIVE) Urine Urobilinogen (0.2-1.0) E.U./dL Ur Leukocyte Esterase (NEGATIVE) Urine RBC (0-5) /HPF Urine WBC (0-5) /HPF Ur Epithelial Cells /LPF Urine Bacteria (NONE TO FEW) /HPF 04/04/19 04/04/19 04/05/19 Range/Units 15:37 22:00 07:20 WBC (5.00-10.00) 10^3/uL RBC (4.50-6.00) 10^6/uL Hgb (13.0-17.0) g/dL Hct (40.0-52.0) % MCV (82.0-92.0) fL MCH (27.0-31.0) pg MCHC (32.0-36.0) g/dL RDW (11.5-14.5) % Plt Count (150-400) 10^3/uL MPV (7.4-10.4) fL Immature Gran % (Auto) (0.0-5.0) % Neut % (Auto) (50.0-70.0) % Lymph % (Auto) (20.0-40.0) % [place] % (Auto) (2.0-8.0) % Eos % (Auto) (1.0-3.0) % Baso % (Auto) (0.0-1.0) % Immature Gran # (Auto) (0.00-0.50) 10^3/uL Neut # (Auto) (2.50-7.00) 10^3/uL Lymph # (Auto) (1.00-4.00) 10^3/uL [place] # (Auto) (0.10-0.80) 10^3/uL Eos # (Auto) (0.10-0.30) 10^3/uL Baso # (Auto) (0.00-0.10) 10^3/uL Sodium (136-145) mmol/L Potassium (3.3-5.3) mmol/L Chloride (98-115) mmol/L Carbon Dioxide (21.0-32.0) mmol/L Anion Gap (5-15) mmol/L BUN (6-25) mg/dL Creatinine (0.51-1.17) mg/dL Est Cr Clr Drug Dosing mL/min Estimated GFR (MDRD) mL/min Glucose (75 - 99) mg/dL Calcium (8.7-10.3) mg/dL Total Bilirubin (0.2-1.0) mg/dL AST (15-37) U/L ALT (12-78) U/L Alkaline Phosphatase (46-116) IU/L Troponin I 0.10 H* < 0.04 (0.00-0.070) ng/mL Total Protein (6.4-8.2) g/dL Albumin (3.00-4.80) g/dL Amylase (25-125) U/L Lipase (73-393) U/L Specimen Type . Urine Color Yellow (YELLOW) Urine Appearance Clear (CLEAR) Urine pH 5.5 (5.0-9.0) Ur Specific [place] 1.020 (1.005-1.030) Urine Protein 30 H (NEGATIVE) mg/dL Urine Glucose (UA) Negative (NEGATIVE) mg/dL Urine Ketones 15 H (NEGATIVE) mg/dL Urine Occult Blood Trace-intact H (NEGATIVE) Urine Nitrite Negative (NEGATIVE) Urine Bilirubin Negative (NEGATIVE) Urine Urobilinogen 0.2 (0.2-1.0) E.U./dL Ur Leukocyte Esterase Negative (NEGATIVE) Urine RBC 0-5 (0-5) /HPF Urine WBC 0-5 (0-5) /HPF Ur Epithelial Cells Occasional /LPF Urine Bacteria Rare (NONE TO FEW) /HPF 04/05/19 04/05/19 Range/Units 07:20 07:20 WBC 8.06 (5.00-10.00) 10^3/uL RBC 4.33 L (4.50-6.00) 10^6/uL Hgb 13.4 (13.0-17.0) g/dL Hct 38.5 L (40.0-52.0) % MCV 88.9 (82.0-92.0) fL MCH 30.9 (27.0-31.0) pg MCHC 34.8 (32.0-36.0) g/dL RDW 13.0 (11.5-14.5) % Plt Count 154 (150-400) 10^3/uL MPV 9.2 (7.4-10.4) fL Immature Gran % (Auto) 0.2 (0.0-5.0) % Neut % (Auto) 78.4 H (50.0-70.0) % Lymph % (Auto) 12.8 L (20.0-40.0) % [place] % (Auto) 6.8 (2.0-8.0) % Eos % (Auto) 1.4 (1.0-3.0) % Baso % (Auto) 0.4 (0.0-1.0) % Immature Gran # (Auto) 0.02 (0.00-0.50) 10^3/uL Neut # (Auto) 6.32 (2.50-7.00) 10^3/uL Lymph # (Auto) 1.03 (1.00-4.00) 10^3/uL [place] # (Auto) 0.55 (0.10-0.80) 10^3/uL Eos # (Auto) 0.11 (0.10-0.30) 10^3/uL Baso # (Auto) 0.03 (0.00-0.10) 10^3/uL Sodium 135 L (136-145) mmol/L Potassium 4.4 (3.3-5.3) mmol/L Chloride 100 (98-115) mmol/L Carbon Dioxide 24.4 (21.0-32.0) mmol/L Anion Gap 15.0 (5-15) mmol/L BUN 15 (6-25) mg/dL Creatinine 0.93 (0.51-1.17) mg/dL Est Cr Clr Drug Dosing 48.59 mL/min Estimated GFR (MDRD) > 60 mL/min Glucose 93 (75 - 99) mg/dL Calcium 8.4 L (8.7-10.3) mg/dL Total Bilirubin (0.2-1.0) mg/dL AST (15-37) U/L ALT (12-78) U/L Alkaline Phosphatase (46-116) IU/L Troponin I (0.00-0.070) ng/mL Total Protein (6.4-8.2) g/dL Albumin (3.00-4.80) g/dL Amylase (25-125) U/L Lipase (73-393) U/L Specimen Type Urine Color (YELLOW) Urine Appearance (CLEAR) Urine pH (5.0-9.0) Ur Specific [place] (1.005-1.030) Urine Protein (NEGATIVE) mg/dL Urine Glucose (UA) (NEGATIVE) mg/dL Urine Ketones (NEGATIVE) mg/dL Urine Occult Blood (NEGATIVE) Urine Nitrite (NEGATIVE) Urine Bilirubin (NEGATIVE) Urine Urobilinogen (0.2-1.0) E.U./dL Ur Leukocyte Esterase (NEGATIVE) Urine RBC (0-5) /HPF Urine WBC (0-5) /HPF Ur Epithelial Cells /LPF Urine Bacteria (NONE TO FEW) /HPF Result Diagrams: 04/05/19 07:20 04/05/19 07:20 *Q Meaningful Use (ADM) - VTE Risk Assess *Q Each Risk Factor Represents 1 Point: None Total Score 1 Point Risk Factors: 0 Each Risk Factor Represents 2 Points: None Total Score 2 Point Risk Factors: 0 Each Risk Factor Represents 3 Points: Age 75 Years or Greater Total Score 3 Point Risk Factors: 3 Each Risk Factor Represents 5 Points: None Total Score 5 Point Risk Factors: 0 Venous Thromboembolism Risk Factor Score *Q: 3 Orders Last 24hrs: Active Orders 24 hr Category Date Time Status Patient Status [ADT] Routine ADT 04/04/19 16:30 Active Cardiac Monitoring [RC] 0700,1100,1500,1900,2300,0300 Care 04/04/19 17:11 Active Communication Order [RC] 0900,2100 Care 04/04/19 19:44 Active EKG Documentation Completion [RC] ASDIRECTED Care 04/04/19 14:58 Active Peripheral IV Care [RC] . DIRECTED Care 04/04/19 15:06 Active Up With Assistance [RC] ASDIRECTED Care 04/04/19 17:06 Active VTE/DVT Education [RC] PER UNIT ROUTINE Care 04/04/19 16:30 Active Vital Signs [RC] 0700,1100,1500,1900,2300,0300 Care 04/04/19 16:30 Active Regular Diet [DIET] Diet 04/04/19 Dinner Active Aspirin Med 04/05/19 09:00 Active 81 mg PO DAILY Cyanocobalamin (Vitamin B12) [Vitamin B12] Med 04/04/19 21:00 Active 1,000 mcg PO BEDTIME Ondansetron [Zofran] Med 04/04/19 17:06 Active 4 mg IV Q6H PRN Sodium Chloride 0.9% [Normal Saline] 1,000 ml Med 04/04/19 17:15 Active IV ASDIRECTED Sodium Chloride 0.9% [Saline Flush] Med 04/04/19 15:06 Active 10 ml FLUSH Q8HR PRN carBAMazepine [TEGretol Tab] Med 04/04/19 21:00 Active 200 mg PO BID Peripheral IV Insertion Adult [OM.PC] Routine Oth 04/04/19 15:06 Ordered Resuscitation Status Routine Resus Stat 04/04/19 16:30 Ordered EKG 12 Lead [EK] Routine Ther 04/04/19 14:58 Ordered Medication Orders Aspirin (Aspirin) 81 mg PO DAILY [facility] Last Admin: 04/05/19 09:39 Dose: 81 mg Carbamazepine (Tegretol Tab) 200 mg PO BID [facility] Last Admin: 04/05/19 09:39 Dose: 200 mg Admin: 04/04/19 20:21 Dose: 200 mg Cyanocobalamin (Vitamin B12) 1,000 mcg PO BEDTIME [facility] Last Admin: 04/04/19 20:21 Dose: 1,000 mcg Sodium Chloride (Normal Saline) 1,000 mls @ 125 mls/hr IV ASDIRECTED [facility] Last Admin: 04/05/19 05:50 Dose: 125 mls/hr Infusion: 04/05/19 04:04 Dose: 125 mls/hr Admin: 04/04/19 20:04 Dose: 125 mls/hr Ondansetron HCl (Zofran) 4 mg IV Q6H PRN PRN Reason: Nausea/Vomiting Sodium Chloride (Saline Flush) 10 ml FLUSH Q8HR PRN PRN Reason: keep vein open Assessment/Plan Comment:: This is an 89 year old male who was evaluated in the ED and admitted for observation. Yesterday around 1100 the patient noted feeling increasingly dizzy and nauseous while sitting at the table. He was able to make his way to the bathroom where he reports dry heaving but without emesis. After sitting for a period he noted resolution of nausea but some mild continued dizziness, primarily with head movements. He presented to the ED for further evaluation. Denies any REDD or increased weakness. Noted a mild intermittent cough of approximately 2 weeks. Denied fever, chills, REDD, CP, SOB, abdominal pain, or syncope. On arrival to the ED patient noted improvement in dizziness symptoms. Pertinent ED workup: - - Chest x-ray - CBC unremarkable though mild neutrophilia with a normal WBC. - CMP- Mild hyponatremia, sodium 130. - UA negative - Amylase/lipase negative ED management - 4mg IV zofran given - 1 L NS bolus - resolution of symptoms in the ED.
[2019-04-05 11:50] VITALS: BP 146/81; PULSE 78
--- NOTE | 2019-04-05 13:11 | PCM.DCSUM1 ---
Discharge Summary - Hospital Course Diagnosis: Stroke: No - Discharge Data Discharge Date: 04/05/19 Discharge Disposition: Home, Self-Care 01 Condition: Good - Referral to Home Health Primary Care Physician: PCP Unobtainable - Discharge Diagnosis/Problem(s) (1) Dizziness SNOMED Code(s): 662033622, 672887594 ICD Code: R42 - DIZZINESS AND GIDDINESS Status: Acute Current Visit: No (2) Elevated troponin SNOMED Code(s): 694543274, 447708571, 182317734 ICD Code: R79.89 - OTHER SPECIFIED ABNORMAL FINDINGS OF BLOOD CHEMISTRY Status: Acute Current Visit: No - Patient Instructions Diet: Usual Diet as Tolerated Activity: As Tolerated Showering/Bathing: May Shower Notify Provider of: Fever, Nausea and/or Vomiting Other/Special Instructions: Notify provider if return of dizziness. Onset of chest pain or shortness of breath. - Discharge Plan *PRESCRIPTION DRUG MONITORING PROGRAM REVIEWED*: Not Applicable *COPY OF PRESCRIPTION DRUG MONITORING REPORT IN PATIENT BIJU: Not Applicable Home Medications: Home Meds Aspirin 81 mg PO DAILY 03/08/17 [History] carBAMazepine [Carbamazepine] 200 mg PO BID #60 tablet 03/18/17 [Rx] Cyanocobalamin (Vitamin B12) [Vitamin B12] 1,000 mcg PO DAILY 04/04/19 [History] Oxygen Therapy Mode: Room Air Patient Handouts: Dizziness, [id number] Forms: ED Department Discharge Referrals: PCP,Unobtain [Primary Care Provider] - (Follow-up at the [facility] in 1 week or sooner if concerns arise. ) - Patient Data Vitals - Most Recent: Last Vital Signs Temp 98.6 F 04/05/19 11:00 Pulse 78 04/05/19 11:00 Resp 20 04/05/19 11:00 BP 146/81 H 04/05/19 11:00 Pulse Ox 92 L 04/05/19 12:27 Weight - Most Recent: 177 lb 9.6 oz I&O - Last 24 hours: Intake & Output 04/04/19 04/05/19 04/05/19 22:59 06:59 14:59 Intake Total 100 1477 Balance 100 1477 Lab Results - Last 24 hrs: Laboratory Results - last 24 hr 04/04/19 04/04/19 04/04/19 Range/Units 14:59 14:59 14:59 WBC 7.82 (5.00-10.00) 10^3/uL RBC 4.62 (4.50-6.00) 10^6/uL Hgb 14.3 D (13.0-17.0) g/dL Hct 40.6 (40.0-52.0) % MCV 87.9 (82.0-92.0) fL MCH 31.0 (27.0-31.0) pg MCHC 35.2 (32.0-36.0) g/dL RDW 12.9 (11.5-14.5) % Plt Count 160 (150-400) 10^3/uL MPV 9.7 (7.4-10.4) fL Immature Gran % (Auto) 0.4 (0.0-5.0) % Neut % (Auto) 85.9 H (50.0-70.0) % Lymph % (Auto) 7.3 L (20.0-40.0) % [place] % (Auto) 5.2 (2.0-8.0) % Eos % (Auto) 0.9 L (1.0-3.0) % Baso % (Auto) 0.3 (0.0-1.0) % Immature Gran # (Auto) 0.03 (0.00-0.50) 10^3/uL Neut # (Auto) 6.72 (2.50-7.00) 10^3/uL Lymph # (Auto) 0.57 L (1.00-4.00) 10^3/uL [place] # (Auto) 0.41 (0.10-0.80) 10^3/uL Eos # (Auto) 0.07 L (0.10-0.30) 10^3/uL Baso # (Auto) 0.02 (0.00-0.10) 10^3/uL Sodium 130 L (136-145) mmol/L Potassium 5.1 (3.3-5.3) mmol/L Chloride 94 L (98-115) mmol/L Carbon Dioxide 24.3 (21.0-32.0) mmol/L Anion Gap 16.8 H (5-15) mmol/L BUN 19 (6-25) mg/dL Creatinine 0.88 (0.51-1.17) mg/dL Est Cr Clr Drug Dosing 52.28 mL/min Estimated GFR (MDRD) > 60 mL/min Glucose 142 H (75 - 99) mg/dL Calcium 8.9 (8.7-10.3) mg/dL Total Bilirubin 0.5 (0.2-1.0) mg/dL AST 37 (15-37) U/L ALT 22 (12-78) U/L Alkaline Phosphatase 96 (46-116) IU/L Troponin I 0.08 H* (0.00-0.070) ng/mL Total Protein 7.4 (6.4-8.2) g/dL Albumin 3.48 (3.00-4.80) g/dL Amylase 29 (25-125) U/L Lipase 105 (73-393) U/L Specimen Type Urine Color (YELLOW) Urine Appearance (CLEAR) Urine pH (5.0-9.0) Ur Specific [place] (1.005-1.030) Urine Protein (NEGATIVE) mg/dL Urine Glucose (UA) (NEGATIVE) mg/dL Urine Ketones (NEGATIVE) mg/dL Urine Occult Blood (NEGATIVE) Urine Nitrite (NEGATIVE) Urine Bilirubin (NEGATIVE) Urine Urobilinogen (0.2-1.0) E.U./dL Ur Leukocyte Esterase (NEGATIVE) Urine RBC (0-5) /HPF Urine WBC (0-5) /HPF Ur Epithelial Cells /LPF Urine Bacteria (NONE TO FEW) /HPF 04/04/19 04/04/19 04/05/19 Range/Units 15:37 22:00 07:20 WBC (5.00-10.00) 10^3/uL RBC (4.50-6.00) 10^6/uL Hgb (13.0-17.0) g/dL Hct (40.0-52.0) % MCV (82.0-92.0) fL MCH (27.0-31.0) pg MCHC (32.0-36.0) g/dL RDW (11.5-14.5) % Plt Count (150-400) 10^3/uL MPV (7.4-10.4) fL Immature Gran % (Auto) (0.0-5.0) % Neut % (Auto) (50.0-70.0) % Lymph % (Auto) (20.0-40.0) % [place] % (Auto) (2.0-8.0) % Eos % (Auto) (1.0-3.0) % Baso % (Auto) (0.0-1.0) % Immature Gran # (Auto) (0.00-0.50) 10^3/uL Neut # (Auto) (2.50-7.00) 10^3/uL Lymph # (Auto) (1.00-4.00) 10^3/uL [place] # (Auto) (0.10-0.80) 10^3/uL Eos # (Auto) (0.10-0.30) 10^3/uL Baso # (Auto) (0.00-0.10) 10^3/uL Sodium (136-145) mmol/L Potassium (3.3-5.3) mmol/L Chloride (98-115) mmol/L Carbon Dioxide (21.0-32.0) mmol/L Anion Gap (5-15) mmol/L BUN (6-25) mg/dL Creatinine (0.51-1.17) mg/dL Est Cr Clr Drug Dosing mL/min Estimated GFR (MDRD) mL/min Glucose (75 - 99) mg/dL Calcium (8.7-10.3) mg/dL Total Bilirubin (0.2-1.0) mg/dL AST (15-37) U/L ALT (12-78) U/L Alkaline Phosphatase (46-116) IU/L Troponin I 0.10 H* < 0.04 (0.00-0.070) ng/mL Total Protein (6.4-8.2) g/dL Albumin (3.00-4.80) g/dL Amylase (25-125) U/L Lipase (73-393) U/L Specimen Type . Urine Color Yellow (YELLOW) Urine Appearance Clear (CLEAR) Urine pH 5.5 (5.0-9.0) Ur Specific [place] 1.020 (1.005-1.030) Urine Protein 30 H (NEGATIVE) mg/dL Urine Glucose (UA) Negative (NEGATIVE) mg/dL Urine Ketones 15 H (NEGATIVE) mg/dL Urine Occult Blood Trace-intact H (NEGATIVE) Urine Nitrite Negative (NEGATIVE) Urine Bilirubin Negative (NEGATIVE) Urine Urobilinogen 0.2 (0.2-1.0) E.U./dL Ur Leukocyte Esterase Negative (NEGATIVE) Urine RBC 0-5 (0-5) /HPF Urine WBC 0-5 (0-5) /HPF Ur Epithelial Cells Occasional /LPF Urine Bacteria Rare (NONE TO FEW) /HPF 04/05/19 04/05/19 Range/Units 07:20 07:20 WBC 8.06 (5.00-10.00) 10^3/uL RBC 4.33 L (4.50-6.00) 10^6/uL Hgb 13.4 (13.0-17.0) g/dL Hct 38.5 L (40.0-52.0) % MCV 88.9 (82.0-92.0) fL MCH 30.9 (27.0-31.0) pg MCHC 34.8 (32.0-36.0) g/dL RDW 13.0 (11.5-14.5) % Plt Count 154 (150-400) 10^3/uL MPV 9.2 (7.4-10.4) fL Immature Gran % (Auto) 0.2 (0.0-5.0) % Neut % (Auto) 78.4 H (50.0-70.0) % Lymph % (Auto) 12.8 L (20.0-40.0) % [place] % (Auto) 6.8 (2.0-8.0) % Eos % (Auto) 1.4 (1.0-3.0) % Baso % (Auto) 0.4 (0.0-1.0) % Immature Gran # (Auto) 0.02 (0.00-0.50) 10^3/uL Neut # (Auto) 6.32 (2.50-7.00) 10^3/uL Lymph # (Auto) 1.03 (1.00-4.00) 10^3/uL [place] # (Auto) 0.55 (0.10-0.80) 10^3/uL Eos # (Auto) 0.11 (0.10-0.30) 10^3/uL Baso # (Auto) 0.03 (0.00-0.10) 10^3/uL Sodium 135 L (136-145) mmol/L Potassium 4.4 (3.3-5.3) mmol/L Chloride 100 (98-115) mmol/L Carbon Dioxide 24.4 (21.0-32.0) mmol/L Anion Gap 15.0 (5-15) mmol/L BUN 15 (6-25) mg/dL Creatinine 0.93 (0.51-1.17) mg/dL Est Cr Clr Drug Dosing 48.59 mL/min Estimated GFR (MDRD) > 60 mL/min Glucose 93 (75 - 99) mg/dL Calcium 8.4 L (8.7-10.3) mg/dL Total Bilirubin (0.2-1.0) mg/dL AST (15-37) U/L ALT (12-78) U/L Alkaline Phosphatase (46-116) IU/L Troponin I (0.00-0.070) ng/mL Total Protein (6.4-8.2) g/dL Albumin (3.00-4.80) g/dL Amylase (25-125) U/L Lipase (73-393) U/L Specimen Type Urine Color (YELLOW) Urine Appearance (CLEAR) Urine pH (5.0-9.0) Ur Specific [place] (1.005-1.030) Urine Protein (NEGATIVE) mg/dL Urine Glucose (UA) (NEGATIVE) mg/dL Urine Ketones (NEGATIVE) mg/dL Urine Occult Blood (NEGATIVE) Urine Nitrite (NEGATIVE) Urine Bilirubin (NEGATIVE) Urine Urobilinogen (0.2-1.0) E.U./dL Ur Leukocyte Esterase (NEGATIVE) Urine RBC (0-5) /HPF Urine WBC (0-5) /HPF Ur Epithelial Cells /LPF Urine Bacteria (NONE TO FEW) /HPF Med Orders - Current: Current Medications Aspirin (Aspirin) 81 mg PO DAILY [facility] Last Admin: 04/05/19 09:39 Dose: 81 mg Carbamazepine (Tegretol Tab) 200 mg PO BID [facility] Last Admin: 04/05/19 09:39 Dose: 200 mg Cyanocobalamin (Vitamin B12) 1,000 mcg PO BEDTIME [facility] Last Admin: 04/04/19 20:21 Dose: 1,000 mcg Sodium Chloride (Normal Saline) 1,000 mls @ 125 mls/hr IV ASDIRECTED [facility] Last Admin: 04/05/19 05:50 Dose: 125 mls/hr Ondansetron HCl (Zofran) 4 mg IV Q6H PRN PRN Reason: Nausea/Vomiting Sodium Chloride (Saline Flush) 10 ml FLUSH Q8HR PRN PRN Reason: keep vein open Discontinued Medications Carbamazepine (Tegretol Tab) 200 mg PO BID [facility] Cyanocobalamin (Vitamin B12) 1,000 mcg PO BEDTIME [facility] Sodium Chloride (Normal Saline) 1,000 mls @ 999 mls/hr IV .BOLUS ONE Stop: 04/04/19 16:06 Last Admin: 04/04/19 15:40 Dose: 999 mls/hr Ondansetron HCl (Zofran) 4 mg IVPUSH ONETIME ONE Stop: 04/04/19 15:24 Last Admin: 04/04/19 15:43 Dose: 4 mg
[2019-04-05] MEDS ORDERED: Cyanocobalamin (Vitamin B12) 500 MCG Tab PO SCH (21:00)
== END 2019-04-05 13:16 | disposition home or self-care (01) ==
LOC: KA.ED 14:28 → KA.MS 16:46 → UNDODISOB 04-05 13:16
PROVIDERS: ADMIT Nurse Practitioner Family; ATTEND Nurse Practitioner Family
DX: R42 Dizziness and giddiness (principal); R79.89 Other specified abnormal findings of blood chemistry; E78.00 Pure hypercholesterolemia, unspecified; M19.90 Unspecified osteoarthritis, unspecified site; E53.8 Deficiency of other specified B group vitamins; Z87.891 Personal history of nicotine dependence; Z79.82 Long term (current) use of aspirin; Z88.1 Allergy status to other antibiotic agents; Z88.0 Allergy status to penicillin; Z88.2 Allergy status to sulfonamides; E87.1 Hypo-osmolality and hyponatremia
CPT/HCPCS: 36415; 71046; 80048; 80053; 81001; 82150; 83690; 84484; 85025; 93005; 96360; 99285; A9270; J2405; J7030; 96361; 96374; 99284; G0378

== ENCOUNTER 2019-12-27 07:24 | Inpatient (IN) | payer MEDICARE, BC ==
[2019-12-27 08:09] LABS: ANION GAP 15.9 mmol/L (5-15); CHLORIDE,CL 93 mmol/L (98-115); SODIUM,NA 128 mmol/L (136-145)
--- NOTE | 2019-12-27 08:23 | CR ---
[id number] RAD/RAD Chest PA or AP 1V EXAM: FRONTAL CHEST INDICATION: LOW SATURATION. COMPARISON: April 04, 2019. DISCUSSION: Mild chronic scarring or fibrosis in the imaged lung bases. No definite acute infiltrates. Normal heart size. A large hiatus hernia is unchanged. IMPRESSION: 1. No acute findings. Julián Reagan MD 12/27/19 0822 Thank you for allowing us to participate in the care of your patient.
--- NOTE | 2019-12-27 08:32 | EDM.PDOC ---
ED HPI GENERAL MEDICAL PROBLEM - General Chief Complaint: General Stated Complaint: TEMP, DIZZY Time Seen by Provider: 12/27/19 08:14 Source of Information: Reports: Patient, Family ( and sons) History Limitations: Reports: No Limitations - History of Present Illness INITIAL COMMENTS - FREE TEXT/NARRATIVE: Patient presents with fever, productive cough, diaphoresis, tachycardia, low O2 sats, weakness that started this morning. Temp was 99.7 for EMS. He says he last had pneumonia 30 years ago and doesn't remember how he felt then. Appetite was fine yesterday but he hasn't eaten today. Bowel and bladder function good. No vomiting. Treatments SHOTBLASTER: Reports: Oxygen - Related Data Allergies Allergy/AdvReac Type Severity Reaction Status Date / Time doxycycline Allergy Cannot Verified 12/27/19 07:59 Remember erythromycin base Allergy Cannot Verified 12/27/19 07:59 Remember Penicillins Allergy Rash Verified 12/27/19 07:59 sulfamethoxazole Allergy Cannot Verified 12/27/19 07:59 [From Bactrim] Remember trimethoprim [From Bactrim] Allergy Cannot Verified 12/27/19 07:59 Remember Home Meds: Home Meds Aspirin 81 mg PO DAILY 03/08/17 [History] Cyanocobalamin (Vitamin B12) [Vitamin B12] 1,000 mcg PO DAILY 04/04/19 [History] Cholecalciferol (Vitamin D3) [Vitamin D3] 1,000 units PO DAILY 12/27/19 [History] carBAMazepine [Carbamazepine] 200 mg PO DAILY@0800 12/27/19 [History] carBAMazepine [TEGretol Tab] 400 mg PO DAILY@1800 12/27/19 [History] Past Medical History HEENT History: Reports: Hard of Hearing, Impaired Vision Cardiovascular History: Reports: Afib, High Cholesterol Respiratory History: Reports: Other (See Below) Other Respiratory History: Resp failure r/t sepsis 02/07. 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 Did have and E.Coli infection after gall bladder removed 02/07 - Past Surgical History Head Surgeries/Procedures: Reports: None HEENT Surgical History: Reports: None Cardiovascular Surgical History: Reports: None Respiratory Surgical History: Reports: None GI Surgical History: Reports: Cholecystectomy, Hernia, Abdominal Endocrine Surgical History: Reports: None Neurological Surgical History: Reports: None Musculoskeletal Surgical History: Reports: None Dermatological Surgical History: Reports: Skin Biopsy, Other (See Below) Social & Family History - Family History Family Medical History: Noncontributory Endocrine/Metabolic: Reports: Diabetes, type II - Caffeine Use Caffeine Use: Reports: Coffee, Soda Other Caffeine Use: just a couple recently - Living Situation & Occupation Living situation: Reports: Occupation: Retired ED ROS GENERAL - Review of Systems Review Of Systems: See Below Constitutional: Reports: Fever, Chills, Malaise, Weakness, Diaphoresis. Denies: Decreased Appetite HEENT: Denies: Ear Pain, Throat Pain, Vision Change Respiratory: Reports: Shortness of Breath, Cough, Sputum Cardiovascular: Denies: Chest Pain, Lightheadedness, Syncope GI/Abdominal: Denies: Abdominal Pain, Constipation, Diarrhea, Vomiting : Denies: Dysuria, Flank Pain Musculoskeletal: Denies: Neck Pain, Shoulder Pain, Arm Pain, Back Pain, Hand Pain Skin: Denies: Cyanosis, Jaundice, Mottled, Pallor, Diaphoresis Neurological: Denies: Confusion, Dizziness, Seizure, Syncope, Trouble Speaking, Difficulty Walking Psychiatric: Denies: Agitation, Anxiety, Confusion ED EXAM, GENERAL - Physical Exam Exam: See Below Exam Limited By: No Limitations General Appearance: Alert, WD/WN, No Apparent Distress Eye Exam: Bilateral Eye: EOMI, Normal Inspection, PERRL Ears: Normal External Exam, Hearing Grossly Normal Nose: Normal Inspection, No Blood Throat/Mouth: Normal Inspection, Normal Lips, Normal Voice, No Airway Compromise Head: Atraumatic, Normocephalic Neck: Normal Inspection, Supple, Full Range of Motion Respiratory/Chest: No Respiratory Distress, Crackles (left base). No: Rhonchi, Wheezing, Stridor Cardiovascular: Normal Peripheral Pulses, Regular Rate, Rhythm, No Edema, No Gallop, No Murmur Peripheral Pulses: 2+: Carotid (L), Carotid (R), Radial (L), Radial (R), Posterior Tibial (L), Posterior Tibial (R) GI/Abdominal: Normal Bowel Sounds, Soft, Non-Tender, No Organomegaly, No Di stention Back Exam: Normal Inspection, Full Range of Motion. No: CVA Tenderness (L), CVA Tenderness (R) Extremities: Normal Inspection, Normal Range of Motion Neurological: Alert, Oriented, Normal Cognition, No Motor/Sensory Deficits Psychiatric: Normal Affect, Normal Mood Skin Exam: Warm, Intact, Normal Color, No Rash, Diaphoretic Course - Vital Signs Last Recorded V/S: Last Vital Signs Temp 97.7 F 12/27/19 07:52 Pulse 121 H 12/27/19 07:52 Resp 24 H 12/27/19 07:52 BP 132/74 12/27/19 07:52 Pulse Ox 88 L 12/27/19 07:52 - Orders/Labs/Meds Orders: Active Orders 24 hr Category Date Time Status Patient Status [ADT] Routine ADT 12/27/19 10:26 Ordered CULTURE BLOOD [BC] Stat Lab 12/27/19 07:51 Ordered CULTURE BLOOD [BC] Stat Lab 12/27/19 07:52 Ordered Sodium Chloride 0.9% @ 150 MLS/HR (1000ml) Med 12/27/19 09:30 Ordered Sodium Chloride 0.9% [Normal Saline] 1,000 ml IV ASDIRECTED Medication Orders Sodium Chloride (Normal Saline) 1,000 mls @ 150 mls/hr IV ASDIRECTED HALLIE Last Admin: 12/27/19 09:34 Dose: 150 mls/hr Documented by: NOEL Labs: Laboratory Tests 12/27/19 12/27/19 12/27/19 Range/Units 07:45 07:45 07:45 WBC 11.22 H (5.00-10.00) 10^3/uL RBC 4.51 (4.50-6.00) 10^6/uL Hgb 14.0 (13.0-17.0) g/dL Hct 39.6 L (40.0-52.0) % MCV 87.8 (82.0-92.0) fL MCH 31.0 (27.0-31.0) pg MCHC 35.4 (32.0-36.0) g/dL RDW 12.4 (11.5-14.5) % Plt Count 128 L (150-400) 10^3/uL MPV 9.1 (7.4-10.4) fL Immature Gran % (Auto) 0.3 (0.0-5.0) % Neut % (Auto) 88.6 H (50.0-70.0) % Lymph % (Auto) 2.6 L (20.0-40.0) % [place] % (Auto) 8.0 (2.0-8.0) % Eos % (Auto) 0.4 L (1.0-3.0) % Baso % (Auto) 0.1 (0.0-1.0) % Neut # (Auto) 9.95 H (2.50-7.00) 10^3/uL Lymph # (Auto) 0.29 L (1.00-4.00) 10^3/uL [place] # (Auto) 0.90 H (0.10-0.80) 10^3/uL Eos # (Auto) 0.04 L (0.10-0.30) 10^3/uL Baso # (Auto) 0.01 (0.00-0.10) 10^3/uL Immature Gran # (Auto) 0.03 (0.00-0.50) 10^3/uL Sodium 128 L (136-145) mmol/L Potassium 4.0 (3.3-5.3) mmol/L Chloride 93 L (98-115) mmol/L Carbon Dioxide 23.1 (21.0-32.0) mmol/L Anion Gap 15.9 H (5-15) mmol/L BUN 15 (6-25) mg/dL Creatinine 0.87 (0.51-1.17) mg/dL Est Cr Clr Drug Dosing 51.94 mL/min Estimated GFR (MDRD) > 60 mL/min Glucose 119 H (75 - 99) mg/dL Lactic Acid 0.9 (0.4-2.0) mmol/L Calcium 8.4 L (8.7-10.3) mg/dL Total Bilirubin 1.0 (0.2-1.0) mg/dL AST 15 (15-37) U/L ALT 18 (12-78) U/L Alkaline Phosphatase 93 (46-116) IU/L Total Protein 7.2 (6.4-8.2) g/dL Albumin 3.48 (3.00-4.80) g/dL SARS-CoV-2 RNA (RT-PCR) (NEGATIVE) 12/27/19 Range/Units 09:15 WBC (5.00-10.00) 10^3/uL RBC (4.50-6.00) 10^6/uL Hgb (13.0-17.0) g/dL Hct (40.0-52.0) % MCV (82.0-92.0) fL MCH (27.0-31.0) pg MCHC (32.0-36.0) g/dL RDW (11.5-14.5) % Plt Count (150-400) 10^3/uL MPV (7.4-10.4) fL Immature Gran % (Auto) (0.0-5.0) % Neut % (Auto) (50.0-70.0) % Lymph % (Auto) (20.0-40.0) % [place] % (Auto) (2.0-8.0) % Eos % (Auto) (1.0-3.0) % Baso % (Auto) (0.0-1.0) % Neut # (Auto) (2.50-7.00) 10^3/uL Lymph # (Auto) (1.00-4.00) 10^3/uL [place] # (Auto) (0.10-0.80) 10^3/uL Eos # (Auto) (0.10-0.30) 10^3/uL Baso # (Auto) (0.00-0.10) 10^3/uL Immature Gran # (Auto) (0.00-0.50) 10^3/uL Sodium (136-145) mmol/L Potassium (3.3-5.3) mmol/L Chloride (98-115) mmol/L Carbon Dioxide (21.0-32.0) mmol/L Anion Gap (5-15) mmol/L BUN (6-25) mg/dL Creatinine (0.51-1.17) mg/dL Est Cr Clr Drug Dosing mL/min Estimated GFR (MDRD) mL/min Glucose (75 - 99) mg/dL Lactic Acid (0.4-2.0) mmol/L Calcium (8.7-10.3) mg/dL Total Bilirubin (0.2-1.0) mg/dL AST (15-37) U/L ALT (12-78) U/L Alkaline Phosphatase (46-116) IU/L Total Protein (6.4-8.2) g/dL Albumin (3.00-4.80) g/dL SARS-CoV-2 RNA (RT-PCR) Negative (NEGATIVE) Meds: Medications Generic Name Dose Route Start Last Admin Trade Name Freq PRN Reason Stop Dose Admin Sodium Chloride 1,000 mls @ 150 mls/hr 12/27/19 09:30 12/27/19 09:34 Normal Saline IV 150 mls/hr ASDIRECTED HALLIE Administration Discontinued Medications Generic Name Dose Route Start Last Admin Trade Name Freq PRN Reason Stop Dose Admin Ceftriaxone Sodium 2 gm 12/27/19 08:39 12/27/19 09:35 Rocephin IVPUSH 12/27/19 08:40 2 gm ONETIME ONE Administration - Re-Assessments/Exams Free Text/Narrative Re-Assessment/Exam: 12/27/19 09:15 Discussed case with Mikey Vasquez NP who accepts for admission pending negative covid test. WBC and ANC are elevated. Will give Rocephin 2 gms now. Clinically looks strongly like pneumonia and CXR appears to have mild infiltrate LLL. Rad reports "no definite acute infiltrates". Discussed findings and treatment plan with patient and family who agree. 12/27/19 10:33 Covid test is negative. Patient has Rocephin in and doing well. Admitted to IP now. Departure - Departure Time of Disposition: 10:26 Disposition: Admitted As Inpatient 66 Condition: Good Clinical Impression: Hypoxemia CAP (community acquired pneumonia) Qualifiers: Laterality: left Lung location: lower lobe of lung Qualified Code(s): J18.9 - Pneumonia, unspecified organism Fever Qualifiers: Fever type: unspecified Qualified Code(s): R50.9 - Fever, unspecified - Discharge Information Referrals: Diann Castellon MD [Primary Care Provider] - Forms: ED Department Discharge Sepsis Event Note (ED) - Evaluation Sepsis Screening Result: Possible Sepsis Risk - Focused Exam Vital Signs: Vital Signs Temp Pulse Resp BP Pulse Ox 12/27/19 07:52 97.7 F 121 H 24 H 132/74 88 L - My Orders Last 24 Hours: My Active Orders 12/27/19 07:51 CULTURE BLOOD [BC] Stat 12/27/19 07:52 CULTURE BLOOD [BC] Stat 12/27/19 09:30 Sodium Chloride 0.9% @ 150 MLS/HR (1000ml) Sodium Chloride 0.9% [Normal Saline] 1,000 ml IV ASDIRECTED 12/27/19 10:26 Patient Status [ADT] Routine - Assessment/Plan Last 24 Hours: My Active Orders 12/27/19 07:51 CULTURE BLOOD [BC] Stat 12/27/19 07:52 CULTURE BLOOD [BC] Stat 12/27/19 09:30 Sodium Chloride 0.9% @ 150 MLS/HR (1000ml) Sodium Chloride 0.9% [Normal Saline] 1,000 ml IV ASDIRECTED 12/27/19 10:26 Patient Status [ADT] Routine
[2019-12-27] MEDS ORDERED: cefTRIAXone 2 GM Vial IVPUSH ONE (08:39)
[2019-12-27] MEDS ORDERED: Sodium Chloride 0.9% 1,000 ML IV SCH (09:30)
[2019-12-27 10:57] VITALS: BP 98/61; PULSE 92
[2019-12-27] MEDS ORDERED: Ondansetron 4 MG Tab.DIS PO PRN (12:29)
--- NOTE | 2019-12-27 12:32 | PCM.HP.2 ---
H&P History of Present Illness - General Date of Service: 12/27/19 Admit Problem/Dx: Admission Diagnosis/Problem Admission Diagnosis/Problem CAP (community acquired pneumonia) due to MSSA ( methicillin sensitive Staphylococcus aureus) Source of Information: Patient, Old Records, Provider, RN History Limitations: Reports: No Limitations - Related Data Allergies/Adverse Reactions: Allergies Allergy/AdvReac Type Severity Reaction Status Date / Time doxycycline Allergy Cannot Verified 12/27/19 07:59 Remember erythromycin base Allergy Cannot Verified 12/27/19 07:59 Remember Penicillins Allergy Rash Verified 12/27/19 07:59 sulfamethoxazole Allergy Cannot Verified 12/27/19 07:59 [From Bactrim] Remember trimethoprim [From Bactrim] Allergy Cannot Verified 12/27/19 07:59 Remember Home Medications: Home Meds Aspirin 81 mg PO DAILY 03/08/17 [History] Cyanocobalamin (Vitamin B12) [Vitamin B12] 1,000 mcg PO DAILY 04/04/19 [History] Cholecalciferol (Vitamin D3) [Vitamin D3] 1,000 units PO DAILY 12/27/19 [History] carBAMazepine [Carbamazepine] 200 mg PO DAILY@0800 12/27/19 [History] carBAMazepine [TEGretol Tab] 400 mg PO DAILY@1800 12/27/19 [History] Past Medical History HEENT History: Reports: Hard of Hearing, Impaired Vision Cardiovascular History: Reports: Afib, High Cholesterol Respiratory History: Reports: Other (See Below) Other Respiratory History: Resp failure r/t sepsis 02/07. 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 Did have and E.Coli infection after gall bladder removed 02/07 - Past Surgical History Head Surgeries/Procedures: Reports: None HEENT Surgical History: Reports: None Cardiovascular Surgical History: Reports: None Respiratory Surgical History: Reports: None GI Surgical History: Reports: Cholecystectomy, Hernia, Abdominal Endocrine Surgical History: Reports: None Neurological Surgical History: Reports: None Musculoskeletal Surgical History: Reports: None Dermatological Surgical History: Reports: Skin Biopsy, Other (See Below) Social & Family History - Family History Family Medical History: Noncontributory Endocrine/Metabolic: Reports: Diabetes, type II - Tobacco Use Smoking Status *Q: Former Smoker Years of Tobacco use: 30 Packs/Tins Daily: 1 Used Tobacco, but Quit: Yes Month/Year Tobacco Last Used: 30 years ago - Caffeine Use Caffeine Use: Reports: Coffee, Soda Other Caffeine Use: just a couple recently - Alcohol Use Days Per Week of Alcohol Use: 4 Number of Drinks Per Day: 1 Total Drinks Per Week: 4 Date of Last Drink: 12/24/19 - Recreational Drug Use Recreational Drug Use: No - Living Situation & Occupation Living situation: Reports: Occupation: Retired H&P Review of Systems - Review of Systems: Review Of Systems: See Below General: Denies: Fever, Chills, Malaise, Weakness, Fatigue, Night Sweats, Decreased Appetite HEENT: Reports: No Symptoms Pulmonary: Reports: No Symptoms Cardiovascular: Reports: No Symptoms Gastrointestinal: Reports: No Symptoms Genitourinary: Reports: No Symptoms Musculoskeletal: Reports: No Symptoms Skin: Reports: No Symptoms Psychiatric: Reports: No Symptoms Neurological: Reports: No Symptoms Hematologic/Lymphatic: Reports: No Symptoms Exam - Exam Exam: See Below - Vital Signs Vital Signs: Last Vital Signs Temp 97.7 F 12/27/19 10:55 Pulse 92 12/27/19 10:55 Resp 16 12/27/19 10:55 BP 98/61 12/27/19 10:55 Pulse Ox 93 L 12/27/19 10:55 Weight: 177 lb - Exam Quality Assessment: No: Supplemental Oxygen General: Alert, Oriented, Cooperative. No: Mild Distress HEENT: Other (hearing aids). No: Mucosa Moist & [place] Lungs: Normal Respiratory Effort, Decreased Breath Sounds (left lung base). No: Crackles, Rales, Rhonchi Cardiovascular: Regular Rate, Regular Rhythm, Normal S1, Normal S2 GI/Abdominal Exam: Normal Bowel Sounds, Soft, Non-Tender. No: Distended (Male) Exam: Deferred Rectal (Males) Exam: Deferred Back Exam: No: CVA Tenderness (L), CVA Tenderness (R) Extremities: No Pedal Edema, Normal Capillary Refill Peripheral Pulses: 2+: Radial (L), Radial (R) Skin: Warm, Dry, Intact Neurological: Cranial Nerves Intact, Reflexes Equal Bilateral Neuro Extensive - Mental Status: Alert, Oriented x3, Normal Mood/Affect, Normal Cognition Neuro Extensive - Motor, Sensory, Reflexes: CN II-XII Intact, Normal Gait, Normal Reflexes - Patient Data Lab Results Last 24 hrs: Laboratory Results - last 24 hr 12/27/19 12/27/19 12/27/19 Range/Units 07:45 07:45 07:45 WBC 11.22 H (5.00-10.00) 10^3/uL RBC 4.51 (4.50-6.00) 10^6/uL Hgb 14.0 (13.0-17.0) g/dL Hct 39.6 L (40.0-52.0) % MCV 87.8 (82.0-92.0) fL MCH 31.0 (27.0-31.0) pg MCHC 35.4 (32.0-36.0) g/dL RDW 12.4 (11.5-14.5) % Plt Count 128 L (150-400) 10^3/uL MPV 9.1 (7.4-10.4) fL Immature Gran % (Auto) 0.3 (0.0-5.0) % Neut % (Auto) 88.6 H (50.0-70.0) % Lymph % (Auto) 2.6 L (20.0-40.0) % [place] % (Auto) 8.0 (2.0-8.0) % Eos % (Auto) 0.4 L (1.0-3.0) % Baso % (Auto) 0.1 (0.0-1.0) % Neut # (Auto) 9.95 H (2.50-7.00) 10^3/uL Lymph # (Auto) 0.29 L (1.00-4.00) 10^3/uL [place] # (Auto) 0.90 H (0.10-0.80) 10^3/uL Eos # (Auto) 0.04 L (0.10-0.30) 10^3/uL Baso # (Auto) 0.01 (0.00-0.10) 10^3/uL Immature Gran # (Auto) 0.03 (0.00-0.50) 10^3/uL Sodium 128 L (136-145) mmol/L Potassium 4.0 (3.3-5.3) mmol/L Chloride 93 L (98-115) mmol/L Carbon Dioxide 23.1 (21.0-32.0) mmol/L Anion Gap 15.9 H (5-15) mmol/L BUN 15 (6-25) mg/dL Creatinine 0.87 (0.51-1.17) mg/dL Est Cr Clr Drug Dosing 51.94 mL/min Estimated GFR (MDRD) > 60 mL/min Glucose 119 H (75 - 99) mg/dL Lactic Acid 0.9 (0.4-2.0) mmol/L Calcium 8.4 L (8.7-10.3) mg/dL Total Bilirubin 1.0 (0.2-1.0) mg/dL AST 15 (15-37) U/L ALT 18 (12-78) U/L Alkaline Phosphatase 93 (46-116) IU/L Total Protein 7.2 (6.4-8.2) g/dL Albumin 3.48 (3.00-4.80) g/dL SARS-CoV-2 RNA (RT-PCR) (NEGATIVE) 12/27/19 Range/Units 09:15 WBC (5.00-10.00) 10^3/uL RBC (4.50-6.00) 10^6/uL Hgb (13.0-17.0) g/dL Hct (40.0-52.0) % MCV (82.0-92.0) fL MCH (27.0-31.0) pg MCHC (32.0-36.0) g/dL RDW (11.5-14.5) % Plt Count (150-400) 10^3/uL MPV (7.4-10.4) fL Immature Gran % (Auto) (0.0-5.0) % Neut % (Auto) (50.0-70.0) % Lymph % (Auto) (20.0-40.0) % [place] % (Auto) (2.0-8.0) % Eos % (Auto) (1.0-3.0) % Baso % (Auto) (0.0-1.0) % Neut # (Auto) (2.50-7.00) 10^3/uL Lymph # (Auto) (1.00-4.00) 10^3/uL [place] # (Auto) (0.10-0.80) 10^3/uL Eos # (Auto) (0.10-0.30) 10^3/uL Baso # (Auto) (0.00-0.10) 10^3/uL Immature Gran # (Auto) (0.00-0.50) 10^3/uL Sodium (136-145) mmol/L Potassium (3.3-5.3) mmol/L Chloride (98-115) mmol/L Carbon Dioxide (21.0-32.0) mmol/L Anion Gap (5-15) mmol/L BUN (6-25) mg/dL Creatinine (0.51-1.17) mg/dL Est Cr Clr Drug Dosing mL/min Estimated GFR (MDRD) mL/min Glucose (75 - 99) mg/dL Lactic Acid (0.4-2.0) mmol/L Calcium (8.7-10.3) mg/dL Total Bilirubin (0.2-1.0) mg/dL AST (15-37) U/L ALT (12-78) U/L Alkaline Phosphatase (46-116) IU/L Total Protein (6.4-8.2) g/dL Albumin (3.00-4.80) g/dL SARS-CoV-2 RNA (RT-PCR) Negative (NEGATIVE) Result Diagrams: 12/27/19 07:45 12/27/19 07:45 Sepsis Event Note - Evaluation Sepsis Screening Result: Sepsis Risk - Focused Exam Vital Signs: Vital Signs Temp Pulse Resp BP Pulse Ox 12/27/19 10:55 97.7 F 92 16 98/61 93 L 12/27/19 07:52 97.7 F 121 H 24 H 132/74 88 L Date Exam was Performed: 12/27/19 Time Exam was Performed: 12:57 Problem List Initiated/Reviewed/Updated: Yes Orders Last 24hrs: Active Orders 24 hr Category Date Time Status Patient Status [ADT] Routine ADT 12/27/19 10:26 Active CULTURE BLOOD [BC] Stat Lab 12/27/19 08:25 Received CULTURE BLOOD [BC] Stat Lab 12/27/19 08:45 Received Sodium Chloride 0.9% [Normal Saline] 1,000 ml Med 12/27/19 09:30 Active IV ASDIRECTED Medication Orders Sodium Chloride (Normal Saline) 1,000 mls @ 150 mls/hr IV ASDIRECTED HALLIE Last Admin: 12/27/19 09:34 Dose: 150 mls/hr Documented by: NOEL Assessment/Plan Comment:: History of present illness 89-year-old gentleman admitted into inpatient status after he came through the ED complaining of a productive cough, sweating, chills darted prior to arrival. Patient does do note 3 days of decreased appetite with some slight nausea however no vomiting or diarrhea. Afebrile at home however 99.7 in route to hospital. Boris does have of hx of cholangitis in the past, sepsis with E. coli bacteremia with acute cholecystitis and cholelithiasis. Is any jaundice or abdominal pain. Received 2 g IV Rocephin in ED Pertinent ED findings, VS: Tachycardia, MAP 92, T 97.7 RR 16 [place]@ 93% RA CXR: Scarring however no acute findings WBC, 11,000, neutrophilia 88%, Lactate 0.9 Covid 19: Neg NA+ 128 Patient sitting in chair conversing, no shortness of breath, no cough, feeling better, no jaundice, no abdominal pain increasing appetite afebrile. No dizziness, Working diagnosis --Infection, possible bacterial etiology, exact source eluding, monitor for sepsis --Hyponatremia, Hypotonic Chronic/stable problems History of ascending cholangitis- Liver function normal, no jaundaice asymptomatic Trigeminal neuralgia- on Carbamazepine Vitamin B12 deficiency, on supplementation CODE STATUS, FULL CODE, discussion held with patient and spouse at bedside. Staff to Retrieve living will Disposition/overall plan Meets inpatient criteria IV fluids for now. Repeat Lactate now Add Procalcitonin, amylase/lipase, strep pneumonia, urine studies, direct Bili, CRP Monitor for signs of the biliary tree obstruction/infection/sepsis, i.e. hemodynamic instability, fever, jaundice, Abd pain. Low threshold for abdominal CT. Hold off for now - Mortality Measure Prognosis:: Good
[2019-12-27] MEDS ORDERED: Aspirin 81 MG Tab.Chew PO SCH (12:45)
[2019-12-27] MEDS ORDERED: Midazolam 1 MG/ML 2 ML SDV ONE (14:13)
[2019-12-27] MEDS ORDERED: fentaNYL 100 MCG/2 ML SDV ONE (14:14)
[2019-12-27] MEDS ORDERED: Albuterol/Ipratropium 3.0-0.5 MG/3 ML Neb Soln ONE (14:15)
[2019-12-27] MEDS ORDERED: Albuterol/Ipratropium 3.0-0.5 MG/3 ML Neb Soln NEB ONE (14:15)
[2019-12-27] MEDS ORDERED: Succinylcholine 200 MG/10 ML MDV IV ONE (14:20)
[2019-12-27] MEDS ORDERED: Etomidate 2 MG/ML 20 ML SDV IVPUSH ONE ×2 (14:20)
[2019-12-27] MEDS ORDERED: Piperacillin/Tazobactam/Dext 3.375 GM in Premix Bag 1 BAG IV ONE (14:27)
[2019-12-27] MEDS: Propofol 200 MG/20 ML SDV IVPUSH ONE ×2 (14:32→14:37)
[2019-12-27] MEDS ORDERED: Propofol 200 MG/20 ML SDV IVPUSH ONE ×2 (14:32)
[2019-12-27] MEDS ORDERED: Propofol 200 MG/20 ML SDV ONE (14:43)
[2019-12-27] MEDS ORDERED: Furosemide 40 MG/4 ML VIAL IVPUSH ONE (14:50)
[2019-12-27] MEDS ORDERED: Furosemide 40 MG/4 ML VIAL ONE (14:50)
--- NOTE | 2019-12-27 15:15 | CR ---
[id number] RAD/RAD Chest PA or AP 1V EXAM: FRONTAL CHEST INDICATION: TUBE PLACEMENT. COMPARISON: December 27, 2019. DISCUSSION: Interval endotracheal intubation tube tip about 43 mm above the rod. Interval placement of a nasogastric tube. The tube is in the expected location of the gastric body within a large hiatus hernia. Stable cardiomegaly with development of possible early central vascular congestion. IMPRESSION: 1. Nasogastric tube tip expected location of the gastric body within a large hiatus hernia. 2. Endotracheal tube tip 43 mm above the rod. 3. Possible development of mild interstitial edema and/or infiltrates. Julián Reagan MD 12/27/19 1265 Thank you for allowing us to participate in the care of your patient.
--- NOTE | 2019-12-27 15:27 | PCM.DCSUM1 ---
Discharge Summary - Discharge Data Discharge Date: 12/27/19 Discharge Disposition: DC/Tfer to Acute Hospital 02 Condition: Good - Referral to Home Health Primary Care Physician: Diann Castellon MD - Discharge Plan Home Medications: Home Meds Aspirin 81 mg PO DAILY 03/08/17 [History] Cyanocobalamin (Vitamin B12) [Vitamin B12] 1,000 mcg PO DAILY 04/04/19 [History] Cholecalciferol (Vitamin D3) [Vitamin D3] 1,000 units PO DAILY 12/27/19 [History] carBAMazepine [Carbamazepine] 200 mg PO DAILY@0800 12/27/19 [History] carBAMazepine [TEGretol Tab] 400 mg PO DAILY@1800 12/27/19 [History] - Discharge Summary/Plan Comment DC Time >30 min.: Yes Discharge Summary/Plan Comment: Final diagnosis Acute respiratory failure, NSTEMI History summary Very pleasant 89-year-old gentleman was admitted through the ED when he came in complaining of shaking and chills with decreased appetite and generalized not feeling well past 72 hours, slight nausea however no vomiting or diarrhea. Afebrile at home however 99.7 in route to hospital. Boris does have of hx of cholangitis in the past, sepsis with E. coli bacteremia with acute cholecystitis and cholelithiasis has had subsequent cholecystectomy. Denied any jaundice or abdominal pain however does have history of hiatal hernia. Received 2 g IV R ocephin in ED Pertinent ED findings, VS: Tachycardia, MAP 92, T 97.7 RR 16 Katelin@ 93% RA CXR: Scarring however no acute findings WBC, 11,000, neutrophilia 88%, initial lactate 0.9 Covid 19: Neg NA+ 128 Hospital course Patient had a very short hospital stay as shortly after admission he started to develop sudden shortness of breath and wheezing with pending respiratory arrest necessitating intubation/RSI. Upon arriving to the floor and and after my evaluation a procalcitonin, amylase/lipase, strep pneumonia, urine studies, direct Bili, CRP was added to previous labs given hx of cholangitis.shortly after I left the hospital I was notified by the charge nurse of a sudden respiratory distress and wheezing and while back in route to the hospital I had requested ED provider and anesthesia to be notified and I also requested stat ABG however the hospital ABG machine is nonfunctioning. Orders were given to start Zoysn stat as likely sepsis. He remained on iv fluids. Repeated lactate after he was hydrated and it was 2.2. Patient was successfully intubated by nurse senior electrical designer. The catheter was placed. Dr. Ofe Alejandro 1 call along with [facility] was notified. He did not recommend heparin at this time. Family was briefed on the patient's status and condition and they agree with plan of care. - General Info Date of Service: 12/27/19 Subjective Update: see summary - Patient Data Vitals - Most Recent: Last Vital Signs Temp 97.7 F 12/27/19 10:55 Pulse 92 12/27/19 10:55 Resp 16 12/27/19 10:55 BP 98/61 12/27/19 10:55 Pulse Ox 93 L 12/27/19 10:55 Weight - Most Recent: 177 lb Lab Results - Last 24 hrs: Laboratory Results - last 24 hr 12/27/19 12/27/19 12/27/19 Range/Units 07:45 07:45 07:45 WBC 11.22 H (5.00-10.00) 10^3/uL RBC 4.51 (4.50-6.00) 10^6/uL Hgb 14.0 (13.0-17.0) g/dL Hct 39.6 L (40.0-52.0) % MCV 87.8 (82.0-92.0) fL MCH 31.0 (27.0-31.0) pg MCHC 35.4 (32.0-36.0) g/dL RDW 12.4 (11.5-14.5) % Plt Count 128 L (150-400) 10^3/uL MPV 9.1 (7.4-10.4) fL Immature Gran % (Auto) 0.3 (0.0-5.0) % Neut % (Auto) 88.6 H (50.0-70.0) % Lymph % (Auto) 2.6 L (20.0-40.0) % Wagoner % (Auto) 8.0 (2.0-8.0) % Eos % (Auto) 0.4 L (1.0-3.0) % Baso % (Auto) 0.1 (0.0-1.0) % Neut # (Auto) 9.95 H (2.50-7.00) 10^3/uL Lymph # (Auto) 0.29 L (1.00-4.00) 10^3/uL Wagoner # (Auto) 0.90 H (0.10-0.80) 10^3/uL Eos # (Auto) 0.04 L (0.10-0.30) 10^3/uL Baso # (Auto) 0.01 (0.00-0.10) 10^3/uL Immature Gran # (Auto) 0.03 (0.00-0.50) 10^3/uL Sodium 128 L (136-145) mmol/L Potassium 4.0 (3.3-5.3) mmol/L Chloride 93 L (98-115) mmol/L Carbon Dioxide 23.1 (21.0-32.0) mmol/L Anion Gap 15.9 H (5-15) mmol/L BUN 15 (6-25) mg/dL Creatinine 0.87 (0.51-1.17) mg/dL Est Cr Clr Drug Dosing 51.94 mL/min Estimated GFR (MDRD) > 60 mL/min Glucose 119 H (75 - 99) mg/dL Lactic Acid 0.9 (0.4-2.0) mmol/L Calcium 8.4 L (8.7-10.3) mg/dL Total Bilirubin 1.0 (0.2-1.0) mg/dL AST 15 (15-37) U/L ALT 18 (12-78) U/L Alkaline Phosphatase 93 (46-116) IU/L Total Protein 7.2 (6.4-8.2) g/dL Albumin 3.48 (3.00-4.80) g/dL Amylase (25-125) U/L Lipase (73-393) U/L SARS-CoV-2 RNA (RT-PCR) (NEGATIVE) 12/27/19 12/27/19 Range/Units 09:15 14:38 WBC (5.00-10.00) 10^3/uL RBC (4.50-6.00) 10^6/uL Hgb (13.0-17.0) g/dL Hct (40.0-52.0) % MCV (82.0-92.0) fL MCH (27.0-31.0) pg MCHC (32.0-36.0) g/dL RDW (11.5-14.5) % Plt Count (150-400) 10^3/uL MPV (7.4-10.4) fL Immature Gran % (Auto) (0.0-5.0) % Neut % (Auto) (50.0-70.0) % Lymph % (Auto) (20.0-40.0) % Wagoner % (Auto) (2.0-8.0) % Eos % (Auto) (1.0-3.0) % Baso % (Auto) (0.0-1.0) % Neut # (Auto) (2.50-7.00) 10^3/uL Lymph # (Auto) (1.00-4.00) 10^3/uL Wagoner # (Auto) (0.10-0.80) 10^3/uL Eos # (Auto) (0.10-0.30) 10^3/uL Baso # (Auto) (0.00-0.10) 10^3/uL Immature Gran # (Auto) (0.00-0.50) 10^3/uL Sodium (136-145) mmol/L Potassium (3.3-5.3) mmol/L Chloride (98-115) mmol/L Carbon Dioxide (21.0-32.0) mmol/L Anion Gap (5-15) mmol/L BUN (6-25) mg/dL Creatinine (0.51-1.17) mg/dL Est Cr Clr Drug Dosing mL/min Estimated GFR (MDRD) mL/min Glucose (75 - 99) mg/dL Lactic Acid (0.4-2.0) mmol/L Calcium (8.7-10.3) mg/dL Total Bilirubin (0.2-1.0) mg/dL AST (15-37) U/L ALT (12-78) U/L Alkaline Phosphatase (46-116) IU/L Total Protein (6.4-8.2) g/dL Albumin (3.00-4.80) g/dL Amylase 70 (25-125) U/L Lipase 385 (73-393) U/L SARS-CoV-2 RNA (RT-PCR) Negative (NEGATIVE) Med Orders - Current: Current Medications Aspirin (Aspirin) 81 mg PO DAILY [facility] Last Admin: 12/27/19 13:33 Dose: 81 mg Documented by: Carbamazepine (Tegretol Tab) 200 mg PO DAILY@0800 [facility] Carbamazepine (Tegretol Tab) 400 mg PO DAILY@1800 [facility] Cyanocobalamin (Vitamin B12) 1,000 mcg PO DAILY [facility] Sodium Chloride (Normal Saline) 1,000 mls @ 150 mls/hr IV ASDIRECTED [facility] Last Admin: 12/27/19 09:34 Dose: 150 mls/hr Documented by: Ondansetron HCl (Zofran Odt) 4 mg PO Q4H PRN PRN Reason: nausea, able to take PO Discontinued Medications Albuterol/Ipratropium (Duoneb 3.0-0.5 Mg/3 Ml) Confirm Administered Dose 3 ml .ROUTE .STK-MED ONE Stop: 12/27/19 14:16 Ceftriaxone Sodium (Rocephin) 2 gm IVPUSH ONETIME ONE Stop: 12/27/19 08:40 Last Admin: 12/27/19 09:35 Dose: 2 gm Documented by: Fentanyl (Sublimaze) Confirm Administered Dose 100 mcg .ROUTE .STK-MED ONE Stop: 12/27/19 14:15 Furosemide (Lasix) Confirm Administered Dose 40 mg .ROUTE .STK-MED ONE Stop: 12/27/19 14:51 Midazolam HCl (Versed 1 Mg/Ml) Confirm Administered Dose 2 mg .ROUTE .STK-MED ONE Stop: 12/27/19 14:14 Propofol (Diprivan 20 Ml) Confirm Administered Dose 200 mg .ROUTE .STK-MED ONE Stop: 12/27/19 14:44 - Exam Quality Assessment: Reports: Supplemental Oxygen (intubated)
[2019-12-27] MEDS ORDERED: carBAMazepine 200 MG Tab PO SCH (18:00)
[2019-12-28] MEDS ORDERED: carBAMazepine 200 MG Tab PO SCH (08:00)
[2019-12-28] MEDS ORDERED: Cyanocobalamin (Vitamin B12) 500 MCG Tab PO SCH (09:00)
== END 2019-12-27 15:50 | DRG 871 ==
LOC: KA.ED 07:24 → KA.MS 10:26
PROVIDERS: ADMIT Physician Assistant Surgical; ATTEND Nurse Practitioner Family
PROC: 0BH17EZ Insertion of Endotracheal Airway into Trachea, Via Natural or Artificial Opening (ICD-10-PCS; principal; 2019-12-27)
PROC: 5A1935Z Respiratory Ventilation, Less than 24 Consecutive Hours (ICD-10-PCS; 2019-12-27)
DX: J18.9 Pneumonia, unspecified organism (principal); R09.02 Hypoxemia; R50.9 Fever, unspecified; A41.9 Sepsis, unspecified organism; J96.00 Acute respiratory failure, unspecified whether with hypoxia or hypercapnia; I21.4 Non-ST elevation (NSTEMI) myocardial infarction; E87.1 Hypo-osmolality and hyponatremia; H91.90 Unspecified hearing loss, unspecified ear; H54.7 Unspecified visual loss; M11.231 Other chondrocalcinosis, right wrist; I48.91 Unspecified atrial fibrillation; E78.00 Pure hypercholesterolemia, unspecified; K44.9 Diaphragmatic hernia without obstruction or gangrene; M19.90 Unspecified osteoarthritis, unspecified site; M11.20 Other chondrocalcinosis, unspecified site; G50.0 Trigeminal neuralgia; E53.8 Deficiency of other specified B group vitamins; Z85.828 Personal history of other malignant neoplasm of skin; Z88.1 Allergy status to other antibiotic agents; Z88.0 Allergy status to penicillin; Z88.2 Allergy status to sulfonamides; Z79.82 Long term (current) use of aspirin; Z79.899 Other long term (current) drug therapy; Z90.49 Acquired absence of other specified parts of digestive tract; Z98.890 Other specified postprocedural states; Z87.891 Personal history of nicotine dependence; Z20.828 Contact with and (suspected) exposure to other viral communicable diseases
CPT/HCPCS: 71045; 80053; 81001; 82150; 82248; 83605; 83690; 83935; 84145; 84300; 84484; 85025; 85379; 86140; 87040; 87086; 87899; 99284; A9270-GY; J0330; J0696; J1940; J2543; J2704; J3490; J7030; J7620-GY; U0002

== ENCOUNTER 2020-01-02 17:14 | Emergency (ER) | payer MEDICARE, BC ==
[2020-01-02 17:45] VITALS: BP 129/74; PULSE 80
--- NOTE | 2020-01-02 18:15 | EDM.PDOC ---
ED HPI GENERAL MEDICAL PROBLEM - General Chief Complaint: General Stated Complaint: WEAKNESS Time Seen by Provider: 01/02/20 17:45 Source of Information: Reports: Patient, Family, Old Records History Limitations: Reports: No Limitations - History of Present Illness INITIAL COMMENTS - FREE TEXT/NARRATIVE: This is an 89-year-old gentleman recently discharged to home with home health care with inability to maintain home health due to his weakness now comes in through the emergency room for direct admission to [facility]. Mr. Buchanan was admitted and transferred to [facility] in [place] for respiratory failure found to have a severe community-acquired pneumonia versus aspiration pneumonia requiring intubation mechanical ventilation alongside with vasopressor support. He was eventually extubated and weaned off his oxygen working on his therapies. During his hospital stay he went back into atrial fibrillation with a rapid rate and was placed on amiodarone his Lopressor was increased to 50 mg twice a day. His last CXR at x-ray showed previously seen large diaphragmatic hernia with an infiltrate at his left base he has been given antibiotics for the pneumonia,outside blood cultures have been negative. Was a negative COVID test in [place] prior to his transportation. Onset: Gradual Duration: Day(s): Location: Reports: Generalized Quality: Reports: Same as Previous Episode Severity: Moderate Improves with: Reports: Rest Worsens with: Reports: Movement Associated Symptoms: Reports: Shortness of Breath - Related Data Allergies Allergy/AdvReac Type Severity Reaction Status Date / Time doxycycline Allergy Cannot Verified 01/02/20 17:46 Remember erythromycin base Allergy Cannot Verified 01/02/20 17:46 Remember Penicillins Allergy Rash Verified 01/02/20 17:46 sulfamethoxazole Allergy Cannot Verified 01/02/20 17:46 [From Bactrim] Remember trimethoprim [From Bactrim] Allergy Cannot Verified 01/02/20 17:46 Remember Home Meds: Home Meds Cyanocobalamin (Vitamin B12) [Vitamin B12] 1,000 mcg PO DAILY 04/04/19 [History] Cholecalciferol (Vitamin D3) [Vitamin D3] 1,000 units PO DAILY 12/27/19 [History] carBAMazepine [Carbamazepine] 200 mg PO DAILY@0800 12/27/19 [History] carBAMazepine [TEGretol Tab] 400 mg PO DAILY@1800 12/27/19 [History] Amiodarone [Cordarone] 400 mg PO BID 01/02/20 [History] Amiodarone [Cordarone] 400 mg PO DAILY 01/02/20 [History] Aspirin/Calcium Carbonate/Mag [Aspirin Buffered 325 MG Tablet] 325 mg PO QAM 01/02/20 [History] Metoprolol Tartrate 50 mg PO BID 01/02/20 [History] Omeprazole 20 mg PO QAM 01/02/20 [History] Past Medical History HEENT History: Reports: Hard of Hearing, Impaired Vision Cardiovascular History: Reports: Afib, High Cholesterol Respiratory History: Reports: Other (See Below) Other Respiratory History: Resp failure r/t sepsis 02/07. 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 Did have and E.Coli infection after gall bladder removed 02/07 - Past Surgical History Head Surgeries/Procedures: Reports: None HEENT Surgical History: Reports: None Cardiovascular Surgical History: Reports: None Respiratory Surgical History: Reports: None GI Surgical History: Reports: Cholecystectomy, Hernia, Abdominal Endocrine Surgical History: Reports: None Neurological Surgical History: Reports: None Musculoskeletal Surgical History: Reports: None Dermatological Surgical History: Reports: Skin Biopsy, Other (See Below) Social & Family History - Family History Family Medical History: Noncontributory Endocrine/Metabolic: Reports: Diabetes, type II - Caffeine Use Caffeine Use: Reports: Coffee, Soda Other Caffeine Use: just a couple recently - Living Situation & Occupation Living situation: Reports: Occupation: Retired ED ROS GENERAL - Review of Systems Review Of Systems: Comprehensive ROS is negative, except as noted in HPI. ED EXAM, GENERAL - Physical Exam Exam: See Below Exam Limited By: No Limitations General Appearance: Alert, WD/WN, No Apparent Distress Eye Exam: Bilateral Eye: EOMI Ears: Hearing Grossly Normal Nose: Normal Inspection Throat/Mouth: Normal Voice, No Airway Compromise Head: Atraumatic, Normocephalic Neck: Normal Inspection, Supple, Non-Tender, Full Range of Motion Respiratory/Chest: No Respiratory Distress, Lungs Clear, Normal Breath Sounds, No Accessory Muscle Use Cardiovascular: Normal Peripheral Pulses, Regular Rate, Rhythm Peripheral Pulses: 1+: Carotid (L), Carotid (R), Radial (L), Radial (R), Dorsalis Pedis (L), Dorsalis Pedis (R) GI/Abdominal: Normal Bowel Sounds, Soft, Non-Tender, No Organomegaly Back Exam: Normal Inspection Extremities: Normal Inspection, No Pedal Edema Neurological: Alert, Oriented, CN II-XII Intact, Normal Cognition, No Motor/Sensory Deficits Psychiatric: Normal Affect, Normal Mood Skin Exam: Warm, Dry, Intact, Normal Color, No Rash Lymphatic: No Adenopathy Course - Vital Signs Last Recorded V/S: Last Vital Signs Temp 98.4 F 01/02/20 17:41 Pulse 80 01/02/20 17:41 Resp 20 01/02/20 17:41 BP 129/74 01/02/20 17:41 Pulse Ox 93 L 01/02/20 17:41 Departure - Departure Time of Disposition: 18:00 Disposition: DC/Tfer to SNF 03 Condition: Good Clinical Impression: Aspiration pneumonia Qualifiers: Aspiration pneumonia type: unspecified Laterality: unspecified laterality Lung location: unspecified part of lung Qualified Code(s): J69.0 - Pneumonitis due to inhalation of food and vomit - Discharge Information Referrals: Diann Castellon MD [Primary Care Provider] - Sepsis Event Note (ED) - Evaluation Sepsis Screening Result: No Definite Risk - Focused Exam Vital Signs: Vital Signs Temp Pulse Resp BP Pulse Ox 01/02/20 17:41 98.4 F 80 20 129/74 93 L - Assessment/Plan Assessment:: 1. Aspiration pneumonia 2. Acute hypoxic respiratory failure requiring intubation and mechanical ventilation 3. Hypotension without hypoperfusion requiring vasopressor support 4. A. fib with RVR 5. Abdominal pain, pleurisy from basilar pneumonia versus mild pancreatitis. Abdominal pain resolved 6. Large hiatal hernia 7. Trigeminal neuralgia Plan: Admit to swing bed for continued eye care and therapies working towards eventual home discharge as his strengthening improves. Will notify [facility] underground conduit installer regarding Mr Marquez swing bed admission and allow them to take over his care. A she will and his are ingredients with proceeding with swing bed.
[2020-01-02] MEDS ORDERED: Docusate Sodium 100 MG Cap PO PRN (18:30)
[2020-01-02] MEDS ORDERED: Acetaminophen 325 MG Tab PO PRN (18:30)
[2020-01-02] MEDS ORDERED: Amiodarone 200 MG Tab PO SCH (21:00)
[2020-01-02] MEDS ORDERED: Metoprolol Tartrate 50 MG Tab PO SCH (21:00)
[2020-01-03] MEDS ORDERED: carBAMazepine 200 MG Tab PO SCH ×2 (08:00→18:00)
[2020-01-03] MEDS ORDERED: [UNRECOGNIZED DRUG - OTHER] PO SCH (09:00)
[2020-01-03] MEDS ORDERED: Omeprazole 20 MG Cap.CR PO SCH (09:00)
[2020-01-03] MEDS ORDERED: MAG PO SCH (09:00)
[2020-01-03] MEDS ORDERED: CALCIUM CARBONATE PO SCH (09:00)
[2020-01-03] MEDS ORDERED: ASPIRIN PO SCH (09:00)
[2020-01-03] MEDS ORDERED: Non-Formulary Medication 1 Each (Cyanocobalamin (Vitamin B12) [Vitamin B12] 1,000 MCG) PO SCH (09:00)
[2020-01-03] MEDS ORDERED: Non-Formulary Medication 1 Each (Cholecalciferol (Vitamin D3) [Vitamin D3] 1,000 UNITS) PO SCH (09:00)
== END 2020-01-02 18:20 ==
LOC: KA.ED 17:14
DX: J69.0 Pneumonitis due to inhalation of food and vomit (principal); I48.91 Unspecified atrial fibrillation; Z88.1 Allergy status to other antibiotic agents; Z88.0 Allergy status to penicillin; Z88.2 Allergy status to sulfonamides; Z79.899 Other long term (current) drug therapy
CPT/HCPCS: 99283; 99285

== ENCOUNTER 2020-01-02 18:31 | Inpatient (IN) | payer MEDICARE, BC ==
[2020-01-02] MEDS ORDERED: Acetaminophen 325 MG Tab PO PRN (20:14)
[2020-01-02] MEDS ORDERED: Melatonin 3 MG Tab PO PRN (20:24)
[2020-01-02] MEDS ORDERED: Metoprolol Tartrate 50 MG Tab PO SCH (21:00)
[2020-01-02] MEDS ORDERED: Amiodarone 200 MG Tab PO SCH (21:00)
[2020-01-02] MEDS: CARBAMAZEPINE 200 MG PO SCH (21:27)
[2020-01-02] MEDS: Metoprolol Tartrate 50 MG Tab**OWN MED PO SCH (21:27)
[2020-01-02] MEDS: AMIODARONE 200 MG PO SCH (21:29)
[2020-01-03] MEDS: Omeprazole 20 MG Cap.CR**OWN MED PO SCH ×2 (06:18→06:35)
[2020-01-03] MEDS ORDERED: Omeprazole 20 MG Cap.CR PO SCH (07:30)
[2020-01-03 07:51] LABS: ANION GAP 14.2 mmol/L (5-15); CHLORIDE,CL 106 mmol/L (98-115); SODIUM,NA 145 mmol/L (136-145)
[2020-01-03] MEDS: CARBAMAZEPINE 200 MG PO SCH ×2 (07:59→20:05)
[2020-01-03] MEDS: AMIODARONE 200 MG PO SCH ×2 (07:59→20:06)
[2020-01-03] MEDS ORDERED: carBAMazepine 200 MG Tab PO SCH ×2 (08:00→18:00)
[2020-01-03] MEDS: Metoprolol Tartrate 50 MG Tab**OWN MED PO SCH ×2 (08:01→20:08)
[2020-01-03] MEDS: [UNRECOGNIZED DRUG - OTHER] PO SCH (08:02)
[2020-01-03] MEDS: Cholecalciferol (Vitamin D3) 25 MCG Tab PO SCH (08:02)
[2020-01-03] MEDS: ASPIRIN PO SCH (08:02)
[2020-01-03] MEDS: Cyanocobalamin (Vitamin B12) 500 MCG Tab PO SCH (08:02)
[2020-01-03] MEDS ORDERED: Aspirin 325 MG Tab.EC PO SCH (09:00)
--- NOTE | 2020-01-03 16:17 | PCM.HP.2 ---
H&P History of Present Illness - General Date of Service: 01/03/20 Admit Problem/Dx: Admission Diagnosis/Problem Admission Diagnosis/Problem Debility Source of Information: Patient, Old Records, Provider (Mitch Duffy PA-C (ED provider)), RN Notes Reviewed - History of Present Illness Initial Comments - Free Text/Narative: Mr. Marquez reports that in the past week hospital stay at [facility], he had become quite weak. On the day of discharge 01/01/20, he felt he was going to be able to "make it at home" but after having the trip home and not sleeping well the first evening back, he was quite fatigued and the home health nurse was concerned about him being able to safely be at home without additional rehabilitation. He otherwise reports no specific complaints other than generalized fatigue and decreased appetite which has been slowly improving. Nursing reports no concerns. - Related Data Allergies/Adverse Reactions: Allergies Allergy/AdvReac Type Severity Reaction Status Date / Time doxycycline Allergy Cannot Verified 01/02/20 19:21 Remember erythromycin base Allergy Cannot Verified 01/02/20 19:21 Remember Penicillins Allergy Rash Verified 01/02/20 19:21 sulfamethoxazole Allergy Cannot Verified 01/02/20 19:21 [From Bactrim] Remember trimethoprim [From Bactrim] Allergy Cannot Verified 01/02/20 19:21 Remember Home Medications: Home Meds Cyanocobalamin (Vitamin B12) [Vitamin B12] 1,000 mcg PO DAILY 04/04/19 [History] Cholecalciferol (Vitamin D3) [Vitamin D3] 1,000 units PO DAILY 12/27/19 [History] carBAMazepine [Carbamazepine] 200 mg PO DAILY@0800 12/27/19 [History] carBAMazepine [TEGretol Tab] 400 mg PO DAILY@1800 12/27/19 [History] Amiodarone [Cordarone] 400 mg PO BID 01/02/20 [History] Amiodarone [Cordarone] 400 mg PO DAILY 01/02/20 [History] Aspirin/Calcium Carbonate/Mag [Aspirin Buffered 325 MG Tablet] 325 mg PO QAM 01/02/20 [History] Metoprolol Tartrate 50 mg PO BID 01/02/20 [History] Omeprazole 20 mg PO QAM 01/02/20 [History] Past Medical History HEENT History: Reports: Hard of Hearing, Impaired Vision Cardiovascular History: Reports: Afib, High Cholesterol Respiratory History: Reports: Other (See Below) Other Respiratory History: Resp failure r/t sepsis 02/07 and 01/10. 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 Did have and E.Coli infection after gall bladder removed 02/07 - Past Surgical History Head Surgeries/Procedures: Reports: None HEENT Surgical History: Reports: None Cardiovascular Surgical History: Reports: None Respiratory Surgical History: Reports: None GI Surgical History: Reports: Cholecystectomy, Hernia, Abdominal Endocrine Surgical History: Reports: None Neurological Surgical History: Reports: None Musculoskeletal Surgical History: Reports: None Dermatological Surgical History: Reports: Skin Biopsy, Other (See Below) Social & Family History - Family History Family Medical History: Noncontributory Endocrine/Metabolic: Reports: Diabetes, type II - Tobacco Use Smoking Status *Q: Former Smoker Years of Tobacco use: 30 Used Tobacco, but Quit: Yes Month/Year Tobacco Last Used: 06/1979 Second Hand Smoke Exposure: No - Caffeine Use Caffeine Use: Reports: Coffee, Soda Other Caffeine Use: just a couple recently - Alcohol Use Days Per Week of Alcohol Use: 4 Number of Drinks Per Day: 1 Total Drinks Per Week: 4 - Recreational Drug Use Recreational Drug Use: No - Living Situation & Occupation Living situation: Reports: Occupation: Retired H&P Review of Systems - Review of Systems: Review Of Systems: See Below General: Reports: Weakness, Fatigue, Decreased Appetite. Denies: Fever, Chills HEENT: Denies: Headaches, Rhinitis, Sore Throat Pulmonary: Denies: Shortness of Breath, Cough, Sputum Cardiovascular: Denies: Chest Pain, Palpitations, Edema, Lightheadedness Gastrointestinal: Denies: Abdominal Pain, Bloody Stool, Constipation, Diarrhea, Difficulty Swallowing Genitourinary: Denies: Dysuria, Frequency, Hematuria Musculoskeletal: Denies: Neck Pain, Back Pain, Joint Pain, Muscle Pain Skin: Denies: Pallor, Rash, Erythema Psychiatric: Denies: Confusion, Depression, Anxiety Neurological: Denies: Dizziness, Headache, Numbness, Tingling Exam - Exam Exam: See Below - Vital Signs Vital Signs: Last Vital Signs Temp 36.0 C L 01/03/20 06:19 Pulse 60 01/03/20 08:01 Resp 20 01/03/20 06:19 BP 100/63 01/03/20 08:01 Pulse Ox 97 01/03/20 06:19 Weight: 84.776 kg - Exam Physical Exam Comments:: GENERAL: Well-appearing elderly white male appearing younger than stated age sitting in bedside chair in no acute distress. HEENT: Normocephalic, atraumatic. Conjunctiva clear. NECK: Supple, no masses. CV: Regular rate and rhythm, no murmurs, rubs, or gallops. 2+ radial pulses. PULMONARY: Normal effort, clear to auscultation bilaterally aside from mild diminished sounds in the bases, no wheezes, rales, or rhonchi. ABDOMEN: Positive bowel sounds, soft, nontender, nondistended. EXTREMITIES: No edema, cyanosis, or clubbing. MUSCULOSKELETAL: Moves all extremities well. NEUROLOGICAL: No obvious deficits. DERMATOLOGIC: No rashes or suspicious lesions in exposed areas. PSYCHIATRIC: Alert, interactive, appropriate affect. - Patient Data Lab Results Last 24 hrs: Laboratory Results - last 24 hr 01/03/20 01/03/20 Range/Units 07:22 07:22 WBC 6.45 (5.00-10.00) 10^3/uL RBC 4.17 L (4.50-6.00) 10^6/uL Hgb 12.8 L (13.0-17.0) g/dL Hct 39.2 L (40.0-52.0) % MCV 94.0 H D (82.0-92.0) fL MCH 30.7 (27.0-31.0) pg MCHC 32.7 (32.0-36.0) g/dL RDW 13.0 (11.5-14.5) % Plt Count 213 D (150-400) 10^3/uL MPV 9.0 (7.4-10.4) fL Immature Gran % (Auto) 0.3 (0.0-5.0) % Neut % (Auto) 65.0 (50.0-70.0) % Lymph % (Auto) 18.3 L (20.0-40.0) % Marion % (Auto) 10.2 H (2.0-8.0) % Eos % (Auto) 5.4 H (1.0-3.0) % Baso % (Auto) 0.8 (0.0-1.0) % Neut # (Auto) 4.19 (2.50-7.00) 10^3/uL Lymph # (Auto) 1.18 (1.00-4.00) 10^3/uL Marion # (Auto) 0.66 (0.10-0.80) 10^3/uL Eos # (Auto) 0.35 H (0.10-0.30) 10^3/uL Baso # (Auto) 0.05 (0.00-0.10) 10^3/uL Immature Gran # (Auto) 0.02 (0.00-0.50) 10^3/uL Sodium 145 D (136-145) mmol/L Potassium 4.0 (3.3-5.3) mmol/L Chloride 106 D (98-115) mmol/L Carbon Dioxide 28.8 (21.0-32.0) mmol/L Anion Gap 14.2 (5-15) mmol/L BUN 23 (6-25) mg/dL Creatinine 1.04 (0.51-1.17) mg/dL Est Cr Clr Drug Dosing 45.02 mL/min Estimated GFR (MDRD) > 60 mL/min Glucose 111 H (75 - 99) mg/dL Calcium 8.6 L (8.7-10.3) mg/dL Total Bilirubin 0.5 (0.2-1.0) mg/dL AST 24 (15-37) U/L ALT 30 (12-78) U/L Alkaline Phosphatase 122 H (46-116) IU/L Total Protein 7.0 (6.4-8.2) g/dL Albumin 3.07 (3.00-4.80) g/dL Result Diagrams: 01/03/20 07:22 01/03/20 07:22 Sepsis Event Note - Evaluation Sepsis Screening Result: No Definite Risk - Focused Exam Vital Signs: Vital Signs Temp Pulse Pulse Resp BP BP Pulse Ox 01/03/20 08:01 60 100/63 01/03/20 06:19 36.0 C L 60 20 100/63 97 Date Exam was Performed: 01/03/20 Time Exam was Performed: 22:32 Problem List Initiated/Reviewed/Updated: Yes Orders Last 24hrs: Active Orders 24 hr Category Date Time Status Patient Status [ADT] Routine ADT 01/02/20 20:14 Active Height and Weight [RC] Sa@0900 Care 01/02/20 20:16 Active Intake and Output [RC] 699,1900 Care 01/02/20 20:16 Active Oxygen Therapy [RC] .PRN Care 01/02/20 20:14 Active Up With Assistance [RC] ASDIRECTED Care 01/02/20 20:14 Active VTE/DVT Education [RC] PER UNIT ROUTINE Care 01/02/20 20:14 Active Vital Signs [RC] 699,1899 Care 01/02/20 20:14 Active Consult to Case Management/Decaler [CONS] Cons 01/02/20 20:14 Active Routine PT Evaluation and Treatment [CONS] Routine Cons 01/02/20 20:14 Active Regular Diet [DIET] Diet 01/03/20 Breakfast Active CBC WITH AUTO DIFF [HEME] AM Lab 01/11/20 05:11 Ordered CMP [COMPREHENSIVE METABOLIC PN,CMP] [CHEM] AM Lab 01/11/20 05:11 Ordered Acetaminophen [Tylenol] Med 01/02/20 20:14 Active 650 mg PO Q4H PRN Amiodarone [Cordarone] Med 01/02/20 21:00 Active 400 mg PO BID Amiodarone [Cordarone] Med 01/09/20 09:00 Active 400 mg PO DAILY Cholecalciferol (Vitamin D3) [Vitamin D3] Med 01/03/20 09:00 Active 25 mcg PO DAILY Cyanocobalamin (Vitamin B12) [Vitamin B12] Med 01/03/20 09:00 Active 1,000 mcg PO DAILY Melatonin Med 01/02/20 20:24 Active 3 mg PO BEDTIME PRN Metoprolol Tartrate [Lopressor] Med 01/02/20 21:15 Active 50 mg PO BID Non-Formulary Medication [NF Drug] Med 01/03/20 09:00 Active 0 each PO QAM Omeprazole Med 01/03/20 07:30 Active 20 mg PO ACBREAKFAST carBAMazepine [TEGretol Tab] Med 01/03/20 08:00 Active 200 mg PO DAILY@0800 carBAMazepine [TEGretol Tab] Med 01/02/20 21:15 Active 400 mg PO DAILY@1800 Resuscitation Status Routine Resus Stat 01/02/20 20:14 Ordered Medication Orders Acetaminophen (Tylenol) 650 mg PO Q4H PRN PRN Reason: Pain (Mild 1-3)/fever Amiodarone HCl (Cordarone) 400 mg PO BID [facility] Stop: 01/08/20 21:00 Last Admin: 01/03/20 07:59 Dose: 400 mg Documented by: Admin: 01/02/20 21:29 Dose: 400 mg Documented by: KAITLYNN Amiodarone HCl (Cordarone) 400 mg PO DAILY [facility] Stop: 01/15/20 09:01 Carbamazepine (Tegretol Tab) 200 mg PO DAILY@0800 [facility] Last Admin: 01/03/20 07:59 Dose: 200 mg Documented by: NISA Carbamazepine (Tegretol Tab) 400 mg PO DAILY@1800 [facility] Last Admin: 01/02/20 21:27 Dose: 400 mg Documented by: KAITLYNN Cholecalciferol (Vitamin D3) 25 mcg PO DAILY [facility] Last Admin: 01/03/20 08:02 Dose: 25 mcg Documented by: NISA Cyanocobalamin (Vitamin B12) 1,000 mcg PO DAILY [facility] Last Admin: 01/03/20 08:02 Dose: 1,000 mcg Documented by: NISA Melatonin (Melatonin) 3 mg PO BEDTIME PRN PRN Reason: Insomnia Metoprolol Tartrate (Lopressor) 50 mg PO BID [facility] Last Admin: 01/03/20 08:01 Dose: 50 mg Documented by: Admin: 01/02/20 21:27 Dose: 50 mg Documented by: KAITLYNN Archer Aspirin 325 Mg (TabOwn Med) 0 each PO QAM [facility] Last Admin: 01/03/20 08:02 Dose: 1 each Documented by: NISA Omeprazole (Omeprazole) 20 mg PO ACBREAKFAST [facility] Last Admin: 01/03/20 06:35 Dose: Not Given Documented by: KAITLYNN Allison: 01/03/20 06:18 Dose: 20 mg Documented by: KAITLYNN Assessment/Plan Comment:: HPI summary: Mr. Marquez is 89yoM with minimal prior chronic medical conditions who was hospitalized as an acute inpatient from 12/27/19 to 01/01/20 at [facility] for acute hypoxic respiratory failure requiring intubation after initial brief inpatient stay at [facility] when he began having acute respiratory distress. Etiology was fitting with basilar pneumonia for which aspiration was favored. His stay was also complicated by requiring vasopressor support for hypotension as well as new onset atrial fibrillation with RVR. He progressed well and was ultimately discharged to home on 01/01/20 with home health services. Upon evaluation on 12/22 07/13 by the home health nurse, he was noted to be quite deconditioned with concern over safety of being at home at this time. Due to this, he was recommended to be evaluated in the ED with consideration for admission to swing bed at [facility] for which patient was previously considering upon initial acute hospitalization discharge. Given his noted significant deconditioning, he was admitted to swing bed services for physical rehabilitation. Hospitalization problems and plan: # Deconditioning # Recent acute hypoxic respiratory failure requiring intubation secondary to presumed aspiration pneumonia - PT consultation - Monitor respiratory status closely # Atrial fibrillation, recent onset with RVR during recent hospitalization: CHADs-Vasc = 2. Detailed discussion regarding management was documented during recent acute hospitalization and patient was started on ASA 325mg instead of anticoagulation. - Continue amiodarone (400 BID until 01/07, then 400mg daily 01/14, then stop), metoprolol tartrate 50mg BID, ASA 325mg # Anemia, mild: Hemoglobin 12.8, improving. Likely secondary to recent severe acute illness. # Elevated alkaline phosphatase: Mild at 122. No bilirubin or transaminase elevation. - Repeat CBC and CMP in 1 week Chronic, stable conditions: # Hiatal hernia: Stomach nearly entirely intrathoracic. PPI started during recent hospitalization due to concern over possible aspiration as etiology of pneumonia. Continue omeprazole. # Trigeminal neuralgia: Stable. Continue carbamazepine. Misc. medications: Continue vitamin B12 and vitamin D. Hospitalization details: # FEN: No IVF. Electrolytes normal on 01/03/20. Regular diet. # Code status: Full code. # Emergency contact: , Pat. # Disposition: Admit to swing bed status for physical rehabilitation. Anticipate discharge to home pending expected progress. Will consult case management/community mental health social worker for assistance with disposition planning and services. Upcoming appointments: - 01/08/20 Cherelle Condon PA-C, [facility], for hospital follow-up
[2020-01-04] MEDS: Omeprazole 20 MG Cap.CR**OWN MED PO SCH (06:34)
[2020-01-04] MEDS: CARBAMAZEPINE 200 MG PO SCH (08:33)
[2020-01-04] MEDS: Metoprolol Tartrate 50 MG Tab**OWN MED PO SCH (08:34)
[2020-01-04] MEDS: AMIODARONE 200 MG PO SCH (08:34)
[2020-01-04] MEDS: ASPIRIN PO SCH (08:35)
[2020-01-04] MEDS: [UNRECOGNIZED DRUG - OTHER] PO SCH (08:35)
[2020-01-04] MEDS: Cholecalciferol (Vitamin D3) 25 MCG Tab PO SCH (08:36)
[2020-01-04] MEDS: Cyanocobalamin (Vitamin B12) 500 MCG Tab PO SCH (08:36)
[2020-01-04] MEDS ORDERED: ALPRAZolam 0.25 MG Tab PO PRN (15:20)
[2020-01-04] MEDS: carBAMazepine 200 MG Tab PO SCH (18:08)
[2020-01-04] MEDS: Metoprolol Tartrate 50 MG Tab PO SCH (20:48)
[2020-01-04] MEDS: Amiodarone 200 MG Tab PO SCH (20:48)
[2020-01-04] MEDS: Albuterol/Ipratropium 3.0-0.5 MG/3 ML Neb Soln NEB PRN (20:57)
[2020-01-05] MEDS: Albuterol/Ipratropium 3.0-0.5 MG/3 ML Neb Soln NEB PRN ×2 (06:31→13:17)
[2020-01-05] MEDS: Omeprazole 20 MG Cap.CR PO SCH (07:32)
[2020-01-05] MEDS: carBAMazepine 200 MG Tab PO SCH ×2 (07:32→17:55)
[2020-01-05] MEDS: Cyanocobalamin (Vitamin B12) 500 MCG Tab PO SCH (08:27)
[2020-01-05] MEDS: Amiodarone 200 MG Tab PO SCH ×2 (08:27→20:13)
[2020-01-05] MEDS: Cholecalciferol (Vitamin D3) 25 MCG Tab PO SCH (08:27)
[2020-01-05] MEDS: Aspirin 325 MG Tab.EC PO SCH (08:28)
[2020-01-05] MEDS: Metoprolol Tartrate 50 MG Tab PO SCH ×2 (08:28→20:11)
--- NOTE | 2020-01-05 14:20 | CR ---
[id number] RAD/RAD Chest PA And Lateral EXAM: RAD Chest PA And Lateral INDICATION: SHORTNESS OF BREATH. COMPARISON: December 27, 2019. DISCUSSION: Endotracheal and nasogastric tubes have been removed since the prior examination. Cardiomegaly and central vascular congestion. Large hiatus hernia. Chronic obstructive pulmonary disease. Small lateral pleural effusions and bibasal parenchymal and interstitial opacities. Those findings are nonspecific but in the setting of cardiomegaly suggests underlying changes of cardiogenic fluid retention. Correlate for congestive heart failure exacerbation. IMPRESSION: Mild changes of fluid retention in the chest, not seen previously. Correlate for congestive heart failure exacerbation. Endotracheal and nasogastric tube removal since the prior examination. Mitch Grider MD 01/05/20 [id number] Thank you for allowing us to participate in the care of your patient.
[2020-01-06] MEDS: Albuterol/Ipratropium 3.0-0.5 MG/3 ML Neb Soln NEB PRN ×2 (06:58→13:00)
[2020-01-06] MEDS: Omeprazole 20 MG Cap.CR PO SCH (07:25)
[2020-01-06] MEDS: carBAMazepine 200 MG Tab PO SCH ×2 (07:26→17:47)
[2020-01-06] MEDS: Cyanocobalamin (Vitamin B12) 500 MCG Tab PO SCH (08:23)
[2020-01-06] MEDS: Metoprolol Tartrate 50 MG Tab PO SCH ×2 (08:23→20:14)
[2020-01-06] MEDS: Cholecalciferol (Vitamin D3) 25 MCG Tab PO SCH (08:23)
[2020-01-06] MEDS: Amiodarone 200 MG Tab PO SCH ×2 (08:23→20:09)
[2020-01-06] MEDS: Aspirin 325 MG Tab.EC PO SCH (08:23)
[2020-01-06] MEDS ORDERED: Furosemide 20 MG Tab PO ONE (16:32)
[2020-01-06] MEDS: Furosemide 20 MG Tab PO SCH (16:40)
[2020-01-06] MEDS ORDERED: Potassium Chloride 10 MEQ Tab.ER PO ONE (17:36)
[2020-01-07] MEDS: Albuterol/Ipratropium 3.0-0.5 MG/3 ML Neb Soln NEB PRN ×2 (07:21→15:38)
[2020-01-07] MEDS: carBAMazepine 200 MG Tab PO SCH ×2 (07:37→18:12)
[2020-01-07] MEDS: Omeprazole 20 MG Cap.CR PO SCH (07:37)
[2020-01-07] MEDS: Cyanocobalamin (Vitamin B12) 500 MCG Tab PO SCH (08:44)
[2020-01-07] MEDS: Amiodarone 200 MG Tab PO SCH ×2 (08:44→20:20)
[2020-01-07] MEDS: Cholecalciferol (Vitamin D3) 25 MCG Tab PO SCH (08:44)
[2020-01-07] MEDS: Metoprolol Tartrate 50 MG Tab PO SCH ×2 (08:44→20:20)
[2020-01-07] MEDS: Furosemide 20 MG Tab PO SCH (08:44)
[2020-01-07] MEDS: Aspirin 325 MG Tab.EC PO SCH (08:44)
[2020-01-08] MEDS: Omeprazole 20 MG Cap.CR PO SCH (07:27)
[2020-01-08] MEDS: carBAMazepine 200 MG Tab PO SCH ×2 (07:27→18:20)
[2020-01-08] MEDS: Cholecalciferol (Vitamin D3) 25 MCG Tab PO SCH (09:08)
[2020-01-08] MEDS: Furosemide 20 MG Tab PO SCH (09:08)
[2020-01-08] MEDS: Amiodarone 200 MG Tab PO SCH ×2 (09:08→20:34)
[2020-01-08] MEDS: Aspirin 325 MG Tab.EC PO SCH (09:08)
[2020-01-08] MEDS: Metoprolol Tartrate 50 MG Tab PO SCH ×2 (09:08→20:33)
[2020-01-08] MEDS: Cyanocobalamin (Vitamin B12) 500 MCG Tab PO SCH (09:08)
[2020-01-08] MEDS: Docusate Sodium 100 MG Cap PO SCH ×2 (18:20→20:33)
[2020-01-09] MEDS: Aspirin 325 MG Tab.EC PO SCH (08:47)
[2020-01-09] MEDS: Omeprazole 20 MG Cap.CR PO SCH (08:47)
[2020-01-09] MEDS: Amiodarone 200 MG Tab PO SCH (08:47)
[2020-01-09] MEDS: Docusate Sodium 100 MG Cap PO SCH ×2 (08:47→21:35)
[2020-01-09] MEDS: carBAMazepine 200 MG Tab PO SCH ×2 (08:47→18:07)
[2020-01-09] MEDS: Furosemide 20 MG Tab PO SCH (08:48)
[2020-01-09] MEDS: Cholecalciferol (Vitamin D3) 25 MCG Tab PO SCH (08:48)
[2020-01-09] MEDS: Metoprolol Tartrate 50 MG Tab PO SCH ×2 (08:48→21:37)
[2020-01-09] MEDS: Cyanocobalamin (Vitamin B12) 500 MCG Tab PO SCH (08:48)
[2020-01-09] MEDS ORDERED: Amiodarone 200 MG Tab PO SCH (09:00)
[2020-01-09] MEDS ORDERED: AMIODARONE 200 MG PO SCH (09:00)
[2020-01-09] MEDS ORDERED: Furosemide 40 MG Tab PO ONE (15:32)
[2020-01-09] MEDS: Albuterol/Ipratropium 3.0-0.5 MG/3 ML Neb Soln NEB PRN ×2 (15:57→21:33)
[2020-01-10] MEDS: Omeprazole 20 MG Cap.CR PO SCH (07:45)
[2020-01-10] MEDS: Amiodarone 200 MG Tab PO SCH (08:04)
[2020-01-10] MEDS: Docusate Sodium 100 MG Cap PO SCH ×2 (08:04→21:00)
[2020-01-10] MEDS: Furosemide 40 MG Tab PO SCH (08:05)
[2020-01-10] MEDS: Cyanocobalamin (Vitamin B12) 500 MCG Tab PO SCH (08:05)
[2020-01-10] MEDS: Aspirin 325 MG Tab.EC PO SCH (08:05)
[2020-01-10] MEDS: Cholecalciferol (Vitamin D3) 25 MCG Tab PO SCH (08:07)
[2020-01-10] MEDS: carBAMazepine 200 MG Tab PO SCH ×2 (08:07→17:43)
[2020-01-10] MEDS: Metoprolol Tartrate 50 MG Tab PO SCH ×2 (08:45→21:00)
--- NOTE | 2020-01-10 11:53 | PCM.PN ---
- General Info Date of Service: 01/10/20 Functional Status: Reports: Pain Controlled, Tolerating Diet, Ambulating, Urinating. Denies: New Symptoms (Did have some shortness of breath requiring oxygen however now down to 1 L. Lasix has been given.) - Review of Systems General: Denies: Weakness, Fatigue, Malaise, Chills, Night Sweats HEENT: Reports: No Symptoms Pulmonary: Reports: Shortness of Breath (improvement in shortness of breath). Denies: Sputum Cardiovascular: Reports: Dyspnea on Exertion. Denies: Chest Pain, Palpitations, Orthopnea, PND, Edema, Lightheadedness Gastrointestinal: Reports: No Symptoms Genitourinary: Reports: No Symptoms Musculoskeletal: Reports: No Symptoms Skin: Reports: No Symptoms Neurological: Reports: No Symptoms Psychiatric: Reports: No Symptoms - Patient Data Vitals - Most Recent: Last Vital Signs Temp 97.4 F 01/10/20 07:00 Pulse 61 01/10/20 07:00 Resp 20 01/10/20 07:00 BP 104/56 L 01/10/20 07:00 Pulse Ox 88 L 01/10/20 08:00 Weight - Most Recent: 180 lb 2 oz I&O - Last 24 Hours: Intake & Output 01/09/20 01/10/20 01/10/20 22:59 06:59 14:59 Intake Total 500 200 Output Total 900 1075 Balance -400 -875 Lab Results Last 24 Hours: Laboratory Results - last 24 hr 01/10/20 01/10/20 Range/Units 10:40 10:40 WBC 6.50 (5.00-10.00) 10^3/uL RBC 4.04 L (4.50-6.00) 10^6/uL Hgb 12.5 L (13.0-17.0) g/dL Hct 38.3 L (40.0-52.0) % MCV 94.8 H (82.0-92.0) fL MCH 30.9 (27.0-31.0) pg MCHC 32.6 (32.0-36.0) g/dL RDW 13.8 (11.5-14.5) % Plt Count 180 (150-400) 10^3/uL MPV 9.3 (7.4-10.4) fL Immature Gran % (Auto) 0.3 (0.0-5.0) % Neut % (Auto) 78.4 H (50.0-70.0) % Lymph % (Auto) 10.8 L (20.0-40.0) % [place] % (Auto) 8.5 H (2.0-8.0) % Eos % (Auto) 1.7 (1.0-3.0) % Baso % (Auto) 0.3 (0.0-1.0) % Neut # (Auto) 5.10 (2.50-7.00) 10^3/uL Lymph # (Auto) 0.70 L (1.00-4.00) 10^3/uL [place] # (Auto) 0.55 (0.10-0.80) 10^3/uL Eos # (Auto) 0.11 (0.10-0.30) 10^3/uL Baso # (Auto) 0.02 (0.00-0.10) 10^3/uL Immature Gran # (Auto) 0.02 (0.00-0.50) 10^3/uL Sodium 143 (136-145) mmol/L Potassium 4.0 (3.3-5.3) mmol/L Chloride 104 (98-115) mmol/L Carbon Dioxide 32.1 H (21.0-32.0) mmol/L Anion Gap 10.9 (5-15) mmol/L BUN 26 H (6-25) mg/dL Creatinine 1.21 H (0.51-1.17) mg/dL Est Cr Clr Drug Dosing 38.69 mL/min Estimated GFR (MDRD) 56 mL/min Glucose 109 H (75 - 99) mg/dL Calcium 8.2 L (8.7-10.3) mg/dL B-Natriuretic Peptide 890 H (0-100) pg/mL Med Orders - Current: Current Medications Acetaminophen (Tylenol) 650 mg PO Q4H PRN PRN Reason: Pain (Mild 1-3)/fever Albuterol/Ipratropium (Duoneb 3.0-0.5 Mg/3 Ml) 3 ml NEB Q6HRRT PRN PRN Reason: Shortness of Breath Last Admin: 01/09/20 21:33 Dose: 3 ml Documented by: Alprazolam (Xanax) 0.25 mg PO BID PRN PRN Reason: Anxiety Last Admin: 01/09/20 21:54 Dose: 0.25 mg Documented by: Amiodarone HCl (Cordarone) 400 mg PO DAILY [facility] Stop: 01/15/20 10:00 Last Admin: 01/10/20 08:04 Dose: 400 mg Documented by: Aspirin (Ecotrin) 325 mg PO QAM [facility] Last Admin: 01/10/20 08:05 Dose: 325 mg Documented by: Carbamazepine (Tegretol Tab) 200 mg PO DAILY@0800 [facility] Last Admin: 01/10/20 08:07 Dose: 200 mg Documented by: Carbamazepine (Tegretol Tab) 400 mg PO DAILY@1800 [facility] Last Admin: 01/09/20 18:07 Dose: 400 mg Documented by: Cholecalciferol (Vitamin D3) 25 mcg PO DAILY [facility] Last Admin: 01/10/20 08:07 Dose: 25 mcg Documented by: Cyanocobalamin (Vitamin B12) 1,000 mcg PO DAILY [facility] Last Admin: 01/10/20 08:05 Dose: 1,000 mcg Documented by: Docusate Sodium (Colace) 100 mg PO BID [facility] Last Admin: 01/10/20 08:04 Dose: 100 mg Documented by: Furosemide (Lasix) 40 mg PO DAILY [facility] Last Admin: 01/10/20 08:05 Dose: 40 mg Documented by: Metoprolol Tartrate (Lopressor) 50 mg PO BID [facility] Last Admin: 01/09/20 21:37 Dose: Not Given Documented by: Omeprazole (Omeprazole) 20 mg PO ACBREAKFAST [facility] Last Admin: 01/10/20 07:45 Dose: 20 mg Documented by: Ramelteon (Rozerem) 8 mg PO BEDTIME [facility] Last Admin: 01/09/20 21:37 Dose: 8 mg Documented by: Discontinued Medications Amiodarone HCl (Cordarone) 400 mg PO BID [facility] Stop: 01/08/20 21:00 Last Admin: 01/02/20 22:40 Dose: Not Given Documented by: Amiodarone HCl (Cordarone) 400 mg PO DAILY [facility] Stop: 01/15/20 09:00 Amiodarone HCl (Cordarone) 400 mg PO BID [facility] Stop: 01/08/20 21:00 Last Admin: 01/04/20 08:34 Dose: 400 mg Documented by: Amiodarone HCl (Cordarone) 400 mg PO DAILY [facility] Stop: 01/15/20 09:01 Amiodarone HCl (Cordarone) 400 mg PO BID [facility] Stop: 01/08/20 21:01 Last Admin: 01/08/20 20:34 Dose: 400 mg Documented by: Aspirin (Ecotrin) 325 mg PO QAM [facility] Carbamazepine (Tegretol Tab) 200 mg PO DAILY@0800 [facility] Carbamazepine (Tegretol Tab) 400 mg PO DAILY@1800 [facility] Carbamazepine (Tegretol Tab) 200 mg PO DAILY@0800 [facility] Last Admin: 01/04/20 08:33 Dose: 200 mg Documented by: Carbamazepine (Tegretol Tab) 400 mg PO DAILY@1800 [facility] Last Admin: 01/03/20 20:05 Dose: 400 mg Documented by: Furosemide (Lasix) 20 mg PO DAILY [facility] Last Admin: 01/09/20 08:48 Dose: 20 mg Documented by: Furosemide (Lasix) 20 mg PO ONETIME ONE Stop: 01/06/20 16:33 Last Admin: 01/06/20 16:40 Dose: 20 mg Documented by: Furosemide (Lasix) 40 mg PO ONETIME ONE Stop: 01/09/20 15:33 Last Admin: 01/09/20 15:55 Dose: 40 mg Documented by: Melatonin (Melatonin) 3 mg PO BEDTIME PRN PRN Reason: Insomnia Last Admin: 01/03/20 22:31 Dose: 3 mg Documented by: Metoprolol Tartrate (Lopressor) 50 mg PO BID [facility] Last Admin: 01/02/20 22:40 Dose: Not Given Documented by: Metoprolol Tartrate (Lopressor) 50 mg PO BID [facility] Last Admin: 01/04/20 08:34 Dose: 50 mg Documented by: Suzi Aspirin 325 Mg (TabOwn Med) 0 each PO QAM [facility] Last Admin: 01/04/20 08:35 Dose: 1 each Documented by: Omeprazole (Omeprazole) 20 mg PO ACBREAKFAST [facility] Omeprazole (Omeprazole) 20 mg PO ACBREAKFAST [facility] Last Admin: 01/04/20 06:34 Dose: 20 mg Documented by: Potassium Chloride (Klor-Con 10) 10 meq PO ONETIME ONE Stop: 01/06/20 17:37 Last Admin: 01/06/20 17:47 Dose: 10 meq Documented by: - Exam Quality Assessment: Supplemental Oxygen (Oxygen titrated down to 1 L/min) General: Alert, Oriented Neck: Supple. No: No JVD Lungs: Clear to Auscultation, Normal Respiratory Effort, Decreased Breath Sounds (Slightly decreased left base). No: Crackles, Rales, Rhonchi, Rub, Stridor, Wheezing Cardiovascular: Regular Rate, Regular Rhythm GI/Abdominal Exam: Normal Bowel Sounds, Soft (Male) Exam: Deferred Back Exam: No: CVA Tenderness (L), CVA Tenderness (R) Extremities: No Pedal Edema Peripheral Pulses: 1+: Radial (L) Skin: Warm, Dry, Intact Neurological: Normal Gait, Normal Speech, Normal Tone Psy/Mental Status: Alert, Normal Affect, Normal Mood Sepsis Event Note - Evaluation Sepsis Screening Result: No Definite Risk - Focused Exam Vital Signs: Vital Signs Temp Pulse Resp BP Pulse Ox Pulse Ox Pulse Ox 01/10/20 08:00 88 L 01/10/20 07:30 93 L 01/10/20 07:00 97.4 F 61 20 104/56 L 94 L Date Exam was Performed: 01/10/20 Time Exam was Performed: 11:35 - Problem List Review Problem List Initiated/Reviewed/Updated: Yes - My Orders Last 24 Hours: My Active Orders 01/10/20 09:00 Furosemide [Lasix] 40 mg PO DAILY - Plan Plan:: HPI summary: Mr. Marquez is 89yoM with minimal prior chronic medical conditions who was hospitalized as an acute inpatient from 12/27/19 to 01/01/20 at [facility] for acute hypoxic respiratory failure requiring intubation after initial brief inpatient stay at [facility] when he began having acute respiratory distress. Etiology was fitting with basilar pneumonia for which aspiration was favored. His stay was also complicated by requiring vasopressor support for hypotension as well as new onset atrial fibrillation with RVR. He progressed well and was ultimately discharged to home on 01/01/20 with home health services. Upon evaluation on 01/02/20 by the home health nurse, he was noted to be quite deconditioned with concern over safety of being at home at this time. Due to this, he was recommended to be evaluated in the ED with consideration for admission to swing bed at [facility] for which patient was previously considering upon initial acute hospitalization discharge. Given his noted significant deconditioning, he was admitted to swing bed services for physical rehabilitation. Hospital course to date Patient has required oxygen past 2 to 3 days however now titrated down to 1 L after >-1000 mL fluid loss with increasing Lasix. Feels much better, slept throughout the night with no more PND/orthopnea. Able to ambulate the halls, no shortness of breath at rest. Decreasing BNP Hospitalization problems and plan: # HF, clinical, NYHA class II likely based off activity/hx. 40 mg Lasix daily for now, Decreasing BNP, intake output, outpatient echocardiogram, change to decreased Na+ change to low-sodium diet, with slightly low BP, change Lopressor to 25 mg a.m. 50 mg p.m. Consider adding FRANK inhibitor if tolerates before discharge # Deconditioning, improving now that he is diuresing # Recent acute hypoxic respiratory failure requiring intubation secondary to presumed aspiration pneumonia -Ongoing physical therapy, ambulation, - Monitor respiratory status closely, improving, expect off of oxygen next day or so # Atrial fibrillation, recent onset with RVR during recent hospitalization: CHADs-Vasc = 2. Detailed discussion regarding management was documented during recent acute hospitalization and patient was started on ASA 325mg instead of anticoagulation. - Continue amiodarone (400 BID until 01/07, then 400mg daily 01/14, then stop), metoprolol tartrate 50mg BID, ASA 325mg # Anemia, mild: Hemoglobin 12.8, improving. Likely secondary to recent severe acute illness. # Elevated alkaline phosphatase: Mild at 122. No bilirubin or transaminase elevation. - Repeat CBC and CMP today Chronic, stable conditions: # Hiatal hernia: Stomach nearly entirely intrathoracic. PPI started during recent hospitalization due to concern over possible aspiration as etiology of pneumonia. Continue omeprazole. # Trigeminal neuralgia: Stable. Continue carbamazepine. Misc. medications: Continue vitamin B12 and vitamin D. Hospitalization details: # FEN: No IVF. Electrolytes normal, change to Low Na+ diet # Code status: Full code. # Emergency contact: , Pat. # Disposition: Continue with SNF, progressing well, anticipate off of oxygen within 2 days, continue ongoing diuresing and monitor electrolytes. I do not anticipate more than a few days in halfway.
[2020-01-10 12:31] LABS: ANION GAP 10.9 mmol/L (5-15)
[2020-01-10] MEDS ORDERED: Metoprolol Tartrate 50 MG Tab PO SCH (21:00)
[2020-01-11] MEDS: Omeprazole 20 MG Cap.CR PO SCH (06:37)
[2020-01-11 07:59] LABS: ANION GAP 10.1 mmol/L (5-15)
[2020-01-11] MEDS: Cholecalciferol (Vitamin D3) 25 MCG Tab PO SCH (08:01)
[2020-01-11] MEDS: Aspirin 325 MG Tab.EC PO SCH (08:01)
[2020-01-11] MEDS: Furosemide 40 MG Tab PO SCH (08:01)
[2020-01-11] MEDS: carBAMazepine 200 MG Tab PO SCH ×2 (08:02→17:42)
[2020-01-11] MEDS: Docusate Sodium 100 MG Cap PO SCH ×2 (08:02→20:57)
[2020-01-11] MEDS: Amiodarone 200 MG Tab PO SCH (09:56)
[2020-01-11] MEDS: Metoprolol Tartrate 25 MG Tab PO SCH (09:57)
[2020-01-11] MEDS: Cyanocobalamin (Vitamin B12) 500 MCG Tab PO SCH (09:57)
[2020-01-11] MEDS: Albuterol/Ipratropium 3.0-0.5 MG/3 ML Neb Soln NEB PRN (14:13)
[2020-01-11] MEDS: Metoprolol Tartrate 50 MG Tab PO SCH (20:57)
[2020-01-12] MEDS: Omeprazole 20 MG Cap.CR PO SCH ×2 (06:09→06:33)
[2020-01-12] MEDS: Docusate Sodium 100 MG Cap PO SCH ×2 (08:10→21:03)
[2020-01-12] MEDS: Aspirin 325 MG Tab.EC PO SCH (08:10)
[2020-01-12] MEDS: carBAMazepine 200 MG Tab PO SCH ×2 (08:11→17:58)
[2020-01-12] MEDS: Furosemide 40 MG Tab PO SCH (08:11)
[2020-01-12] MEDS: Cyanocobalamin (Vitamin B12) 500 MCG Tab PO SCH (08:11)
[2020-01-12] MEDS: Cholecalciferol (Vitamin D3) 25 MCG Tab PO SCH (08:11)
[2020-01-12] MEDS: Amiodarone 200 MG Tab PO SCH (08:35)
[2020-01-12] MEDS: Metoprolol Tartrate 25 MG Tab PO SCH (09:55)
[2020-01-12] MEDS: Albuterol/Ipratropium 3.0-0.5 MG/3 ML Neb Soln NEB PRN ×2 (15:04→21:02)
[2020-01-12] MEDS: Metoprolol Tartrate 50 MG Tab PO SCH (21:03)
[2020-01-13] MEDS: Albuterol/Ipratropium 3.0-0.5 MG/3 ML Neb Soln NEB PRN ×3 (06:27→20:18)
[2020-01-13] MEDS: Omeprazole 20 MG Cap.CR PO SCH (06:29)
[2020-01-13] MEDS: Aspirin 325 MG Tab.EC PO SCH (08:00)
[2020-01-13] MEDS: Amiodarone 200 MG Tab PO SCH (08:00)
[2020-01-13] MEDS: Metoprolol Tartrate 25 MG Tab PO SCH (08:00)
[2020-01-13] MEDS: Furosemide 40 MG Tab PO SCH (08:01)
[2020-01-13] MEDS: Cholecalciferol (Vitamin D3) 25 MCG Tab PO SCH (08:01)
[2020-01-13] MEDS: Cyanocobalamin (Vitamin B12) 500 MCG Tab PO SCH (08:01)
[2020-01-13] MEDS: Docusate Sodium 100 MG Cap PO SCH ×2 (08:01→20:17)
[2020-01-13] MEDS: carBAMazepine 200 MG Tab PO SCH ×2 (08:01→17:54)
[2020-01-13] MEDS: Metoprolol Tartrate 50 MG Tab PO SCH (20:17)
[2020-01-14] MEDS: Omeprazole 20 MG Cap.CR PO SCH ×2 (06:11→06:31)
[2020-01-14] MEDS: Albuterol/Ipratropium 3.0-0.5 MG/3 ML Neb Soln NEB PRN (06:11)
[2020-01-14] MEDS: Aspirin 325 MG Tab.EC PO SCH (08:04)
[2020-01-14] MEDS: Cholecalciferol (Vitamin D3) 25 MCG Tab PO SCH (08:05)
[2020-01-14] MEDS: Furosemide 40 MG Tab PO SCH (08:05)
[2020-01-14] MEDS: carBAMazepine 200 MG Tab PO SCH (08:05)
[2020-01-14] MEDS: Docusate Sodium 100 MG Cap PO SCH (08:05)
[2020-01-14] MEDS: Cyanocobalamin (Vitamin B12) 500 MCG Tab PO SCH (08:05)
[2020-01-14] MEDS: Metoprolol Tartrate 25 MG Tab PO SCH (08:09)
[2020-01-14] MEDS: Amiodarone 200 MG Tab PO SCH (08:09)
[2020-01-14 08:10] VITALS: BP 150/81; PULSE 56
--- NOTE | 2020-01-14 09:25 | PCM.DCSUM1 ---
Discharge Summary - Hospital Course Diagnosis: Stroke: No - Discharge Data Discharge Date: 01/14/20 Discharge Disposition: Home, W Home Health Agency 06 Condition: Good - Referral to Home Health Date of Face to Face Encounter: 01/14/20 Reason for Homebound Status: Patient is homebound due to weakness and easily fatigued as clinical evidence of new founded heart failure, patient will need home health nursing along with physical therapy and occupational therapy to help develop a home management program due to recent sepsis, clinical COPD requiring oxygen in the hospital along with new medications of bronchodilators. Patient does have an unsteady gait due to recent hospitalization and the need for assistance with medication management and set up, ambulation, and activities of daily living. Primary Care Physician: Diann Castellon MD Skilled Need: Physical therapy home health nursing along with occupational therapy - Patient Summary/Data Consults: Consultations 01/02/20 20:14 Consult to Case Management/[employer] [CONS] Routine PT Evaluation and Treatment [CONS] Routine - Patient Instructions Diet: Low Sodium (2000 mg salt in diet maximum ) Activity: As Tolerated, Cough & Deep Breathe Driving: Do Not Drive (No driving since she will be receiving home health therapy) Showering/Bathing: May Shower Notify Provider of: Fever, Nausea and/or Vomiting Other/Special Instructions: Report any shortness of breath, report if you're having more difficulty with shortness of breath laying down. Weigh yourself every day, same time a day same scale same clothing etc. righted down in a journal, notify the clinic if more than 3 pounds per day or 5 pounds per week. Use your incentives spirometer as instructed several times per day. Taking a water pill lasix every other day, Wednesdays and Fridays are good days to take this. Report any dizziness or lightheadedness,. You will be set up for heart ultrasound at the [facility] - Discharge Plan *PRESCRIPTION DRUG MONITORING PROGRAM REVIEWED*: Not Applicable Prescriptions/Med Rec: Albuterol/Ipratropium [DuoNeb 3.0-0.5 MG/3 ML] 3 ml NEB Q6HRRT PRN #60 neb PRN Reason: Shortness Of Breath Furosemide [Lasix] 20 mg PO MOWEFR #35 tablet lisinopriL [Lisinopril] 5 mg PO DAILY #60 tablet Metoprolol Tartrate [Lopressor] 50 mg PO BEDTIME #60 tablet Metoprolol Tartrate [Lopressor] 25 mg PO DAILY #60 tablet Home Medications: Home Meds Cyanocobalamin (Vitamin B12) [Vitamin B12] 1,000 mcg PO DAILY 04/04/19 [History] Cholecalciferol (Vitamin D3) [Vitamin D3] 1,000 units PO DAILY 12/27/19 [History] carBAMazepine [Carbamazepine] 200 mg PO DAILY@0800 12/27/19 [History] carBAMazepine [TEGretol Tab] 400 mg PO DAILY@1800 12/27/19 [History] Amiodarone [Cordarone] 400 mg PO BID 01/02/20 [History] Aspirin/Calcium Carbonate/Mag [Aspirin Buffered] 325 mg PO QAM 01/02/20 [History] Metoprolol Tartrate 50 mg PO BID 01/02/20 [History] Omeprazole 20 mg PO QAM 01/02/20 [History] Albuterol/Ipratropium [DuoNeb 3.0-0.5 MG/3 ML] 3 ml NEB Q6HRRT PRN #60 neb 01/14/20 [Rx] Amiodarone [Cordarone] 400 mg PO ONETIME #1 01/14/20 [Rx] Furosemide [Lasix] 20 mg PO MOWEFR #35 tablet 01/14/20 [Rx] Metoprolol Tartrate [Lopressor] 25 mg PO DAILY #60 tablet 01/14/20 [Rx] Metoprolol Tartrate [Lopressor] 50 mg PO BEDTIME #60 tablet 01/14/20 [Rx] lisinopriL [Lisinopril] 5 mg PO DAILY #60 tablet 01/14/20 [Rx] Referrals: [facility] [place] [Outside] Avelina Lutz MD [Family Provider] - (Late next week after echocardiogram) - Discharge Summary/Plan Comment DC Time >30 min.: Yes Discharge Summary/Plan Comment: Final diagnosis --NYHA class II likely based off activity --Heart FailurRecent acute hypoxic respiratory failure requiring intubation 2/2 to presumed aspiration pneumoniae clinical, --Deconditioning, --Atrial fibrillation, Monotherapy ASA --Anemia, mild: Hemoglobin at discharge 9.5 up from 8.5 --Elevated alkaline phosphatase: Resolved, History summary Mr. Orn is 89yoM with who was hospitalized as an acute inpatient from 12/27/19 to 01/01/[address] [facility] for acute hypoxic respiratory failure requiring int ubation after initial brief inpatient stay at [facility] when he began having acute respiratory distress. Etiology was fitting with basilar pneumonia for which aspiration was favored. His stay was also complicated by requiring vasopressor support for hypotension as well as new onset atrial fibrillation with RVR. He progressed well and was ultimately discharged to home on 01/01/20 with home health services. Upon evaluation on 01/02/20 by the home health nurse, he was noted to be quite deconditioned with concern over safety of being at home at this time. Due to this, he was recommended to be evaluated in the ED with consideration for admission to swing bed at [facility] for which patient was previously considering upon initial acute hospitalization discharge. Given his noted significant deconditioning, he was admitted to swing bed services for physical rehabilitation. Hospital course Patient progressed well during his mcc stay at [facility]. He did receive physical therapy. He did have some nocturnal dyspnea/PND orthopnea which required up to 3 L per nasal cannula however this was titrated down nicely and he was on room air upon discharge. He did require periodic as needed albuterol nebulizers for mild shortness of breath. BNP 1060 trending down upon discharge. Diuretics were given and he was at his dry weight of 172 upon disch arge (12# wt loss). His amiodarone was titrated down and will take his last dose of 400 mg daily the day after discharge. Metoprolol tartrate slightly reduced to 25 mg in the morning due to asymptomatic bradycardia. Labs on discharge, WBC, 7.08, hemoglobin 12.9, potassium 4.7, sodium 143, BUN/creatinine 25/10, BNP 890-- down trending Medication addition/changes/adjustments upon discharge --Albuterol/ipratropium, in the form of duo nebs, every 6 hours PRN (newly added this admission) --Furosemide, 20 mg by mouth Saturday (newly added this admission --Lisinopril, 5 mg by mouth daily target 20-30 mg by mouth daily, (newly added on discharge) --Metoprolol tartrate 25 mg a.m., 50 mg p.m., (a.m. dose reduced in hospital secondary to bradycardia) --Amiodarone, last dose 01/14 Patient Specific discharge instructions --Report any shortness of breath, dizziness or lightheadedness, --Weigh yourself every day, same time a day same scale same clothing etc. journal, notify the clinic if more than 3 pounds per day or 5 pounds per week --Use incentives spirometer as instructed several times per day --Lasix every other day, Wednesdays and Fridays --You will be set up for heart ultrasound at the [facility] Disposition, patient will be discharged from swing bed status at [facility] today in the care of his along with home health for PT OT This is a the order an [id number] encounter for home health nursing services and an attestation that the patient will be homebound due to weakness and easily fatigued as clinical evidence of new founded heart failure., Patient will require home health nursing along with physical therapy and occupational therapy to help develop a home management program due to recent sepsis, clinical COPD requiring oxygen in the hospital along with new medications of bronchodilators recent adjustments to cardiac meds and diuretics. please assist patient with medication management, set up, ambulation along with activities of daily living as the patient does have ongoing unsteady gait and the need for assistance due to shortness of breath, heart failure, with recent sepsis that places the patient more susceptible to hospital readmission. - General Info Functional Status: Reports: Pain Controlled - Review of Systems General: Reports: No Symptoms HEENT: Reports: No Symptoms Pulmonary: Denies: Shortness of Breath, Cough, Sputum Cardiovascular: Reports: Dyspnea on Exertion. Denies: Orthopnea, PND, Edema Gastrointestinal: Reports: No Symptoms Genitourinary: Reports: No Symptoms Musculoskeletal: Reports: No Symptoms Skin: Denies: Dryness Neurological: Reports: No Symptoms Psychiatric: Reports: No Symptoms - Patient Data Vitals - Most Recent: Last Vital Signs Temp 97.1 F 01/14/20 06:30 Pulse 56 L 01/14/20 08:09 Resp 18 01/14/20 06:30 BP 150/81 H 01/14/20 08:09 Pulse Ox 92 L 01/14/20 07:34 Weight - Most Recent: 173 lb I&O - Last 24 hours: Intake & Output 01/13/20 01/14/20 01/14/20 22:59 06:59 14:59 Intake Total 930 250 Output Total 800 Balance 130 250 Med Orders - Current: Current Medications Acetaminophen (Tylenol) 650 mg PO Q4H PRN PRN Reason: Pain (Mild 1-3)/fever Albuterol/Ipratropium (Duoneb 3.0-0.5 Mg/3 Ml) 3 ml NEB Q6HRRT PRN PRN Reason: Shortness of Breath Last Admin: 01/14/20 06:11 Dose: 3 ml Documented by: Alprazolam (Xanax) 0.25 mg PO BID PRN PRN Reason: Anxiety Last Admin: 01/09/20 21:54 Dose: 0.25 mg Documented by: Amiodarone HCl (Cordarone) 400 mg PO DAILY [facility] Stop: 01/15/20 10:00 Last Admin: 01/14/20 08:09 Dose: 400 mg Documented by: Aspirin (Ecotrin) 325 mg PO QAM [facility] Last Admin: 01/14/20 08:04 Dose: 325 mg Documented by: Carbamazepine (Tegretol Tab) 200 mg PO DAILY@0800 [facility] Last Admin: 01/14/20 08:05 Dose: 200 mg Documented by: Carbamazepine (Tegretol Tab) 400 mg PO DAILY@1800 [facility] Last Admin: 01/13/20 17:54 Dose: 400 mg Documented by: Cholecalciferol (Vitamin D3) 25 mcg PO DAILY [facility] Last Admin: 01/14/20 08:05 Dose: 25 mcg Documented by: Cyanocobalamin (Vitamin B12) 1,000 mcg PO DAILY [facility] Last Admin: 01/14/20 08:05 Dose: 1,000 mcg Documented by: Docusate Sodium (Colace) 100 mg PO BID [facility] Last Admin: 01/14/20 08:05 Dose: 100 mg Documented by: Furosemide (Lasix) 20 mg PO DAILY [facility] Last Admin: 01/14/20 08:05 Dose: 20 mg Documented by: Metoprolol Tartrate (Lopressor) 50 mg PO BEDTIME [facility] Last Admin: 01/13/20 20:17 Dose: 50 mg Documented by: Metoprolol Tartrate (Lopressor) 25 mg PO DAILY [facility] Last Admin: 01/14/20 08:09 Dose: 25 mg Documented by: Omeprazole (Omeprazole) 20 mg PO ACBREAKFAST [facility] Last Admin: 07/23/20 06:31 Dose: Not Given Documented by: Ramelteon (Rozerem) 8 mg PO BEDTIME [facility] Last Admin: 01/13/20 20:17 Dose: 8 mg Documented by: Discontinued Medications Amiodarone HCl (Cordarone) 400 mg PO BID [facility] Stop: 01/08/20 21:00 Last Admin: 01/02/20 22:40 Dose: Not Given Documented by: Amiodarone HCl (Cordarone) 400 mg PO DAILY [facility] Stop: 01/15/20 09:00 Amiodarone HCl (Cordarone) 400 mg PO BID [facility] Stop: 01/08/20 21:00 Last Admin: 01/04/20 08:34 Dose: 400 mg Documented by: Amiodarone HCl (Cordarone) 400 mg PO DAILY [facility] Stop: 01/15/20 09:01 Amiodarone HCl (Cordarone) 400 mg PO BID [facility] Stop: 01/08/20 21:01 Last Admin: 01/08/20 20:34 Dose: 400 mg Documented by: Aspirin (Ecotrin) 325 mg PO QAM [facility] Carbamazepine (Tegretol Tab) 200 mg PO DAILY@0800 [facility] Carbamazepine (Tegretol Tab) 400 mg PO DAILY@1800 [facility] Carbamazepine (Tegretol Tab) 200 mg PO DAILY@0800 [facility] Last Admin: 01/04/20 08:33 Dose: 200 mg Documented by: Carbamazepine (Tegretol Tab) 400 mg PO DAILY@1800 [facility] Last Admin: 01/03/20 20:05 Dose: 400 mg Documented by: Furosemide (Lasix) 20 mg PO DAILY [facility] Last Admin: 01/09/20 08:48 Dose: 20 mg Documented by: Furosemide (Lasix) 20 mg PO ONETIME ONE Stop: 01/06/20 16:33 Last Admin: 01/06/20 16:40 Dose: 20 mg Documented by: Furosemide (Lasix) 40 mg PO ONETIME ONE Stop: 01/09/20 15:33 Last Admin: 01/09/20 15:55 Dose: 40 mg Documented by: Furosemide (Lasix) 40 mg PO DAILY [facility] Last Admin: 01/11/20 08:01 Dose: 40 mg Documented by: Melatonin (Melatonin) 3 mg PO BEDTIME PRN PRN Reason: Insomnia Last Admin: 01/03/20 22:31 Dose: 3 mg Documented by: Metoprolol Tartrate (Lopressor) 50 mg PO BID [facility] Last Admin: 01/02/20 22:40 Dose: Not Given Documented by: Metoprolol Tartrate (Lopressor) 50 mg PO BID [facility] Last Admin: 01/04/20 08:34 Dose: 50 mg Documented by: Metoprolol Tartrate (Lopressor) 50 mg PO BID [facility] Last Admin: 01/10/20 08:45 Dose: Not Given Documented by: Metoprolol Tartrate (Lopressor) 50 mg PO BID [facility] Aspirin 325 Mg (TabOwn Med) 0 each PO QAM [facility] Last Admin: 01/04/20 08:35 Dose: 1 each Documented by: Omeprazole (Omeprazole) 20 mg PO ACBREAKFAST [facility] Omeprazole (Omeprazole) 20 mg PO ACBREAKFAST [facility] Last Admin: 01/04/20 06:34 Dose: 20 mg Documented by: Potassium Chloride (Klor-Con 10) 10 meq PO ONETIME ONE Stop: 01/06/20 17:37 Last Admin: 01/06/20 17:47 Dose: 10 meq Documented by: - Exam Quality Assessment: Denies: Supplemental Oxygen General: Reports: Alert, Oriented Neck: Reports: Supple. Denies: No JVD Lungs: Reports: Clear to Auscultation, Normal Respiratory Effort Cardiovascular: Reports: No Murmurs, Irregular Rhythm GI/Abdominal Exam: Normal Bowel Sounds, Soft (Male) Exam: Deferred Rectal (Males) Exam: Deferred Back Exam: Denies: CVA Tenderness (L), CVA Tenderness (R) Extremities: No Pedal Edema Skin: Reports: Warm, Dry, Intact Neurological: Reports: No New Focal Deficit Psy/Mental Status: Reports: Alert, Normal Affect, Normal Mood
[2020-01-14 09:50] LABS: ANION GAP 12.8 mmol/L (5-15)
== END 2020-01-14 10:47 | disposition home or self-care (01) | DRG 948 ==
LOC: KA.MS 18:31 → UNDOADMIN 18:50 → KA.MS 18:50
PROVIDERS: ADMIT Physician Assistant; ATTEND Family Medicine
DX: R53.81 Other malaise (principal); I48.91 Unspecified atrial fibrillation; E78.00 Pure hypercholesterolemia, unspecified; K44.9 Diaphragmatic hernia without obstruction or gangrene; E53.8 Deficiency of other specified B group vitamins; D64.9 Anemia, unspecified; G50.0 Trigeminal neuralgia; R74.8 Abnormal levels of other serum enzymes; Z88.1 Allergy status to other antibiotic agents; Z88.0 Allergy status to penicillin; Z88.2 Allergy status to sulfonamides; Z79.82 Long term (current) use of aspirin; Z79.899 Other long term (current) drug therapy; Z11.59 Encounter for screening for other viral diseases; Z87.891 Personal history of nicotine dependence
CPT/HCPCS: 36415; 71046; 80048; 80053; 83880; 85025; 94640; 97110-GP; 97161-GP; A9270-GY; J7620-GY; U0002

== ENCOUNTER 2020-01-17 17:59 | Emergency (ER) | payer MEDICARE, BC ==
[2020-01-17 18:08] VITALS: BP 167/73; PULSE 65
--- NOTE | 2020-01-17 18:33 | EDM.PDOC ---
ED HPI GENERAL MEDICAL PROBLEM - General Chief Complaint: General Stated Complaint: DIZZINESS Time Seen by Provider: 01/17/20 18:08 Source of Information: Reports: Patient History Limitations: Reports: No Limitations - History of Present Illness INITIAL COMMENTS - FREE TEXT/NARRATIVE: Patient is an 89-year-old gentleman who presents to the emergency department this evening via private vehicle with a complaint of dizziness. States that he got up from bed to go to the bathroom and felt dizzy, so required laying down. Nurse presented to the home to check on him and found his blood pressure elevated at 140s over 80s. 2 days prior his blood pressure was 100 over 50s. Patient did discontinue amiodarone and lisinopril in the last 2 days. Patient was discharged from this facility swing bed on 01/13. Patient now has home healthcare nurse periodically. Patient's only complaint is the dizziness. Patient denies chest pain, fever, shortness of breath, nausea, vomiting, di arrhea, abdominal pain, lower extremity edema, headache, or dysuria. Onset: Today Duration: Hour(s): Quality: Reports: Other (Dizziness) Severity: Mild Improves with: Reports: None Worsens with: Reports: Other (Standing) Associated Symptoms: Reports: No Other Symptoms - Related Data Allergies Allergy/AdvReac Type Severity Reaction Status Date / Time doxycycline Allergy Cannot Verified 01/17/20 18:08 Remember erythromycin base Allergy Cannot Verified 01/17/20 18:08 Remember Penicillins Allergy Rash Verified 01/17/20 18:08 sulfamethoxazole Allergy Cannot Verified 01/17/20 18:08 [From Bactrim] Remember trimethoprim [From Bactrim] Allergy Cannot Verified 01/17/20 18:08 Remember Home Meds: Home Meds Cyanocobalamin (Vitamin B12) [Vitamin B12] 1,000 mcg PO DAILY 04/04/19 [History] Cholecalciferol (Vitamin D3) [Vitamin D3] 1,000 units PO DAILY 12/27/19 [History] carBAMazepine [Carbamazepine] 200 mg PO DAILY@0800 12/27/19 [History] carBAMazepine [TEGretol Tab] 400 mg PO DAILY@1800 12/27/19 [History] Aspirin/Calcium Carbonate/Mag [Aspirin Buffered] 325 mg PO QAM 01/02/20 [History] Omeprazole 20 mg PO QAM 01/02/20 [History] Albuterol/Ipratropium [DuoNeb 3.0-0.5 MG/3 ML] 3 ml NEB Q6HRRT PRN #60 neb 01/14/20 [Rx] Furosemide [Lasix] 20 mg PO MOWEFR #35 tablet 01/14/20 [Rx] Metoprolol Tartrate [Lopressor] 12.5 mg PO DAILY 01/17/20 [History] Metoprolol Tartrate [Lopressor] 25 mg PO BEDTIME 01/17/20 [History] Past Medical History HEENT History: Reports: Hard of Hearing, Impaired Vision Cardiovascular History: Reports: Afib, High Cholesterol Respiratory History: Reports: Other (See Below) Other Respiratory History: Resp failure r/t sepsis 02/07 and 01/10. 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 Did have and E.Coli infection after gall bladder removed 02/07 - Past Surgical History Head Surgeries/Procedures: Reports: None HEENT Surgical History: Reports: None Cardiovascular Surgical History: Reports: None Respiratory Surgical History: Reports: None GI Surgical History: Reports: Cholecystectomy, Hernia, Abdominal Endocrine Surgical History: Reports: None Neurological Surgical History: Reports: None Musculoskeletal Surgical History: Reports: None Dermatological Surgical History: Reports: Skin Biopsy, Other (See Below) Social & Family History - Family History Family Medical History: Noncontributory Endocrine/Metabolic: Reports: Diabetes, type II - Caffeine Use Caffeine Use: Reports: Coffee, Soda Other Caffeine Use: just a couple recently - Living Situation & Occupation Living situation: Reports: Occupation: Retired ED ROS GENERAL - Review of Systems Review Of Systems: Comprehensive ROS is negative, except as noted in HPI. Constitutional: Reports: No Symptoms HEENT: Reports: No Symptoms Respiratory: Reports: No Symptoms Cardiovascular: Reports: No Symptoms Endocrine: Reports: No Symptoms GI/Abdominal: Reports: No Symptoms : Reports: No Symptoms Musculoskeletal: Reports: No Symptoms Skin: Reports: No Symptoms Neurological: Reports: Dizziness Psychiatric: Reports: No Symptoms Hematologic/Lymphatic: Reports: No Symptoms Immunologic: Reports: No Symptoms ED EXAM, GENERAL - Physical Exam Exam: See Below Exam Limited By: No Limitations General Appearance: Alert, WD/WN, No Apparent Distress Eye Exam: Bilateral Eye: Normal Inspection Nose: Normal Inspection, Normal Mucosa, No Blood Throat/Mouth: Normal Inspection, Normal Oropharynx, No Airway Compromise Head: Atraumatic, Normocephalic Neck: Normal Inspection Respiratory/Chest: No Respiratory Distress, Lungs Clear, Normal Breath Sounds, No Accessory Muscle Use, Chest Non-Tender Cardiovascular: Regular Rate, Rhythm, No Murmur GI/Abdominal: Normal Bowel Sounds, Soft, Non-Tender Back Exam: Normal Inspection. No: CVA Tenderness (L), CVA Tenderness (R) Extremities: Normal Inspection, No Pedal Edema Neurological: Alert, Oriented, Normal Cognition Psychiatric: Normal Affect, Normal Mood Skin Exam: Warm, Dry, Intact, Normal Color, No Rash Course - Vital Signs Last Recorded V/S: Last Vital Signs Temp 97.9 F 01/17/20 18:01 Pulse 65 01/17/20 18:01 Resp 12 01/17/20 18:01 BP 167/73 H 01/17/20 18:01 Pulse Ox 93 L 01/17/20 18:01 - Re-Assessments/Exams Free Text/Narrative Re-Assessment/Exam: 01/17/20 19:15 Patient afebrile, vital signs stable, dizziness resolved, orthostatic vital signs within normal limits. Discussed case with Nelda, clinical provider for [facility]. It was decided that patient did not require workup here in the emergency department, the patient will be seen at 1 p.m. tomorrow afternoon at the [facility] for recheck. If symptoms continues tonight, the patient will return to the ER. Discussed with patient and in detail the need to proceed with caution this evening from rising to standing position from seated or lying position. 01/17/20 19:17 Departure - Departure Time of Disposition: 19:17 Disposition: Home, Self-Care 01 Condition: Good Clinical Impression: Dizziness - Discharge Information Instructions: Dizziness, [id number], Understanding Your Risk for Falls Referrals: Mikey Vasquez, [employer] [Primary Care Provider] - Additional Instructions: Follow-up tomorrow 1 p.m. at [facility]. Return to emergency department sooner symptoms continue or worsen. Sepsis Event Note (ED) - Evaluation Sepsis Screening Result: No Definite Risk - Focused Exam Vital Signs: Vital Signs Temp Pulse Resp BP Pulse Ox 01/17/20 18:01 97.9 F 65 12 167/73 H 93 L - Assessment/Plan Assessment:: Dizziness Plan: Follow-up tomorrow at [facility]
== END 2020-01-17 19:35 | disposition home or self-care (01) ==
LOC: KA.ED 17:59
DX: R42 Dizziness and giddiness (principal); M19.90 Unspecified osteoarthritis, unspecified site; Z88.1 Allergy status to other antibiotic agents; Z88.0 Allergy status to penicillin; Z88.2 Allergy status to sulfonamides; Z79.82 Long term (current) use of aspirin; Z79.899 Other long term (current) drug therapy
CPT/HCPCS: 99283; 99284